=== PATIENT | male | born 1975 | race American Indian/Alaskan Native ===

== ENCOUNTER 2017-04-05 16:25 | Inpatient (IN) | payer OTHER ==
[2017-04-05] MEDS ORDERED: NACL 0.9% 1000 ML 1,000 ML IV ONE ×3 (16:34→18:23)
[2017-04-05] MEDS ORDERED: TORADOL IV ONE (16:35)
[2017-04-05 16:52] LABS: Urine Drugs of Abuse Note Disclamer
[2017-04-05 17:03] LABS: Basophils % (Auto) 0.4 % (0.0-1.8); Eosinophils % (Auto) 0.4 % (0.0-4.3); Hematocrit 41.9 % (35.5-45.6); Hemoglobin 13.9 gm/dl (11.8-15.2); Mean Corpuscular HGB Conc 33 % (32-34); Mean Corpuscular Hemoglobin 33 pg (28-32); Mean Corpuscular Volume 99 fl (84-94); Platelet Count 288 K/mm3 (140-440); Red Blood Count 4.24 M/mm3 (3.65-5.03); Red Cell Distribution Width 12.6 % (13.2-15.2); White Blood Count 11.7 K/mm3 (4.5-11.0)
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
[2017-04-05 17:14] LABS: Bilirubin,Urine NEG (Negative); Blood,Urine SM (Negative); Ketones,Urine TR mg/dL (Negative); Leukocyte Esterase,Urine NEG (Negative); Mucus,Urine 3+ /HPF; Nitrite,Urine NEG (Negative); Urobilinogen,Urine < 2.0 mg/dL (<2.0)
[2017-04-05 17:32] LABS: Creatine Kinase MB 7.6 ng/mL (0.0-4.0)
[2017-04-05] MEDS ORDERED: VANCOMYCIN/NS 1 GM/250 ML 1 GM/250 ML BAG IV ONE (17:32)
[2017-04-05] MEDS ORDERED: ZOSYN/NS 4.5GM/100ML 4.5 GM/100 ML VIAL IV ONE (17:34)
[2017-04-05] MEDS: ZOSYN/NS 4.5GM/100ML 4.5 GM/100 ML VIAL IV SCH ×2 (17:34→23:39)
[2017-04-05 17:35] LABS: Alanine Aminotransferase 24 units/L (7-56); Albumin 4.8 g/dL (3.9-5); Albumin/Globulin Ratio 1.5 %; Alkaline Phosphatase 84 units/L (35-129); BUN/Creatinine Ratio 9.44; Blood Urea Nitrogen 17 mg/dL (9-20); Chloride 102.3 mmol/L (98-107); Creatine Kinase 1178 units/L (55-170); Glucose 145 mg/dL (75-100); Potassium 4.8 mmol/L (3.6-5.0); Sodium 148 mmol/L (137-145); Total Protein 8.1 g/dL (6.3-8.2)
[2017-04-05 17:37] LABS: Anion Gap 43 mmol/L; Carbon Dioxide 8 mmol/L (22-30)
[2017-04-05] MEDS ORDERED: ZOSYN/NS 3.375GM/50ML 3.375 GM/50 ML BAG IV SCH (18:00)
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
[2017-04-05 18:06] LABS: ISTAT Base Excess -8; ISTAT HCO3 17.8; ISTAT PCO2 34.2 (35-45); ISTAT PH 7.325 (7.35-7.45); ISTAT PO2 132 (80-105); ISTAT SO2 99; ISTAT TCO2 19
--- NOTE | 2017-04-05 18:07 | Cat Scan Report ---
FINAL REPORT EXAM: CT HEAD/BRAIN WO CON HISTORY: ams, fever, combative TECHNIQUE: CT head without contrast PRIORS: None. FINDINGS: No acute intra-axial or extra-axial hemorrhage is identified. There is no evidence of midline shift or mass effect. The ventricles and sulci are within normal limits. Ji-white matter differentiation is intact. No acute parenchymal abnormalities seen. Bony calvarium is grossly intact. Visualized portions of the mastoids and paranasal sinuses are unremarkable. IMPRESSION: Negative CT head
[2017-04-05] MEDS ORDERED: VANCOMYCIN VIAL IV ONE (18:21)
[2017-04-05] MEDS ORDERED: NACL 0.9% 1000 ML IV ONE (18:21)
[2017-04-05] MEDS ORDERED: VANCOMYCIN PHARMACY TO DOSE IV SCH (19:00)
[2017-04-05] MEDS ORDERED: VANCOMYCIN 2,000 MG in NACL 0.9% 500 ML 500 ML IV ONE (19:15)
[2017-04-06] MEDS ORDERED: NACL 0.45% 1000 ML 1,000 ML IV SCH (02:00)
[2017-04-06] MEDS ORDERED: APRESOLINE IV ONE (06:45)
--- NOTE | 2017-04-06 07:48 | XRay Report ---
AP CHEST: HISTORY: Fever, altered mental status AP view of the chest demonstrates a normal mediastinal and cardiac contour with clear lungs and normal bony and soft tissue structures. IMPRESSION: Unremarkable AP chest.
[2017-04-06] MEDS ORDERED: ZOSYN/NS 4.5GM/100ML 4.5 GM/100 ML VIAL IV SCH (08:00)
[2017-04-06] MEDS ORDERED: VANCOMYCIN 1,500 MG in NACL 0.9% 500 ML 500 ML IV SCH (08:00)
[2017-04-06 09:19] LABS: Basophils % (Auto) 0.4 % (0.0-1.8); Eosinophils % (Auto) 0.4 % (0.0-4.3); Mean Corpuscular HGB Conc 34 % (32-34); Mean Corpuscular Hemoglobin 33 pg (28-32); Mean Corpuscular Volume 97 fl (84-94); Platelet Count 147 K/mm3 (140-440); Red Cell Distribution Width 12.6 % (13.2-15.2)
[2017-04-06 09:27] LABS: Bacteria,Urine 1+ /HPF (Negative); Bilirubin,Urine NEG (Negative); Blood,Urine LG (Negative); Ketones,Urine TR mg/dL (Negative); Leukocyte Esterase,Urine LG (Negative); Mucus,Urine 1+ /HPF; Nitrite,Urine NEG (Negative); Urobilinogen,Urine < 2.0 mg/dL (<2.0)
[2017-04-06 09:40] LABS: WBC,Urine > 182.0 /HPF (0.0-6.0)
[2017-04-06 09:45] LABS: Hematocrit 32.1 % (35.5-45.6); Hemoglobin 10.8 gm/dl (11.8-15.2)
[2017-04-06 09:51] LABS: BUN/Creatinine Ratio 10.5; Chloride 115.6 mmol/L (98-107); Potassium 3.3 mmol/L (3.6-5.0)
[2017-04-06 10:20] LABS: Calcium 5.6 mg/dL (8.4-10.2)
--- NOTE | 2017-04-06 10:29 | Event Note ---
Date: 04/06/17 Consult initially placed for possible ICU admission however patient stabilized in ER and was transferred to medical floor. Please re-consult if necessary
--- NOTE | 2017-04-06 10:31 | Consultation ---
History of Present Illness Consult date: 04/06/17 Requesting physician: KIYA WILKINS Reason for consult: other (Sepsis) History of present illness: PULMONARY/CCM CONSULT NOTE (Full dictation # [id number]) Please see dictated notes for full details Past History Past Medical History: other (Bipolar) Past Surgical History: No surgical history, Other (reviewed) Social history: single Family history: no significant family history, other (reviewed) Medications and Allergies Allergies Allergy/AdvReac Type Severity Reaction Status Date / Time No Known Allergies Allergy Verified 04/05/17 23:01 Active Meds: Active Medications Albuterol (Proventil) 2.5 mg IH Q3HRT PRN PRN Reason: Shortness Of Breath Vancomycin HCl 1,500 mg/ (Sodium Chloride) 515 mls @ 333.333 mls/hr IV Q12H COREY Last Admin: 04/06/17 09:47 Dose: 333.333 mls/hr Sodium Chloride (Nacl 0.45% 1000 Ml) 1,000 mls @ 125 mls/hr IV DIRECT COREY Last Admin: 04/06/17 04:34 Dose: 125 mls/hr Piperacillin Sod/Tazobactam Sod (Zosyn/Ns 4.5gm/100ml) 4.5 gm in 100 mls @ 200 mls/hr IV Q8H COREY PRN Reason: Protocol Last Admin: 04/06/17 08:36 Dose: 200 mls/hr Lorazepam (Ativan) 1 mg IV Q4H PRN PRN Reason: Agitation Vancomycin HCl (Vancomycin Pharmacy To Dose) 1 each IV PKCONSULT COREY PRN Reason: Protocol Physical Examination Vital signs: Vital Signs Temp Pulse Resp BP Pulse Ox 102.9 F H 138 H 30 H 119/65 99 04/05/17 16:28 04/05/17 16:28 04/05/17 16:28 04/05/17 16:28 04/05/17 16:28 Results - Laboratory Findings CBC and BMP: 04/06/17 11:02 04/06/17 11:02 ABG POC ABG pH 7.325 (7.35-7.45) L 04/05/17 17:59 POC ABG pCO2 34.2 (35-45) L 04/05/17 17:59 POC ABG pO2 132 (80-105) H 04/05/17 17:59 POC ABG HCO3 17.8 04/05/17 17:59 POC ABG Total CO2 19 04/05/17 17:59 POC ABG O2 Sat 99 04/05/17 17:59 Abnormal lab findings: Abnormal Labs 04/06/17 04/06/17 04/06/17 00:54 08:52 08:52 WBC 12.0 H RBC 3.30 L Hgb 10.8 L D Hct 32.1 L D MCV 97 H MCH 33 H RDW 12.6 L Lymph % (Auto) 5.9 L Gem % (Auto) 8.6 H Lymph # 0.7 L Gem # 1.0 H Seg Neutrophils % 84.7 H Seg Neutrophils # 10.1 H Sodium 168 H* D Potassium 3.3 L D Chloride 115.6 H Carbon Dioxide 13 L BUN 21 H Creatinine 2.0 H Glucose 73 L Lactic Acid 2.10 H* Calcium 5.6 L* D Urine WBC (Auto) 04/06/17 09:00 WBC RBC Hgb Hct MCV MCH RDW Lymph % (Auto) Gem % (Auto) Lymph # Gem # Seg Neutrophils % Seg Neutrophils # Sodium Potassium Chloride Carbon Dioxide BUN Creatinine Glucose Lactic Acid Calcium Urine WBC (Auto) > 182.0 H
[2017-04-06] MEDS ORDERED: CALCIUM GLUCONATE 1,000 MG in NACL 0.9% 100 ML IV ONE (10:45)
[2017-04-06] MEDS ORDERED: KCL 20 MEQ in D5NS 0.2% 1,000 ML IV SCH (10:45)
[2017-04-06 12:37] LABS: Basophils % (Auto) 0.4 % (0.0-1.8); Eosinophils % (Auto) 0.6 % (0.0-4.3); Hematocrit 39.5 % (35.5-45.6); Hemoglobin 12.8 gm/dl (11.8-15.2); Mean Corpuscular HGB Conc 32 % (32-34); Mean Corpuscular Hemoglobin 32 pg (28-32); Mean Corpuscular Volume 99 fl (84-94); Platelet Count 169 K/mm3 (140-440); Red Cell Distribution Width 12.9 % (13.2-15.2); White Blood Count 14.2 K/mm3 (4.5-11.0)
[2017-04-06 12:41] LABS: Albumin 3.6 g/dL (3.9-5); Albumin/Globulin Ratio 1.4 %; BUN/Creatinine Ratio 9.28; Bilirubin,Total 1.2 mg/dL (0.1-1.2); Chloride 111.8 mmol/L (98-107); Total Protein 6.1 g/dL (6.3-8.2)
[2017-04-06 12:44] LABS: Potassium 4.6 mmol/L (3.6-5.0)
--- NOTE | 2017-04-06 13:41 | Progress Note ---
Assessment and Plan Assessment and plan: Sepsis. Improved. Continue to follow up blood culture. IV antibiotics. Lactic acid level has returned to normal. UTI. Continue IV antibiotics. Follow-up urine cultures. Encephalopathy. Etiology may be secondary to 1. Patient also appears to be manic. Consult psychiatry. Abdominal pain. Check CT scan of the abdomen and pelvis. Acute renal failure. Creatinine has increased to 2.8. Follow-up CT scan of the abdomen and pelvis to rule out obstruction. Nephrology consultation. History Interval history: Patient complains of abdominal pain. Hospitalist Physical - Constitutional Vitals: Temp Pulse Resp BP Pulse Ox 97.5 F L 69 16 158/112 100 04/06/17 12:00 04/06/17 12:00 04/06/17 12:00 04/06/17 12:00 04/06/17 12:00 General appearance: Present: no acute distress - EENT Eyes: Present: PERRL, EOM intact ENT: hearing intact, clear oral mucosa, dentition normal - Neck Neck: Present: supple, normal ROM - Respiratory Respiratory effort: normal Respiratory: bilateral: CTA - Cardiovascular Rhythm: regular Heart Sounds: Present: S1 & S2. Absent: gallop, rub - Extremities Extremities: no ischemia, No edema, Full ROM - Abdominal General gastrointestinal: soft, non-tender, non-distended, normal bowel sounds - Integumentary Integumentary: Present: clear, warm, dry - Neurologic Neurologic: CNII-XII intact, moves all extremities Results - Labs CBC & Chem 7: 04/06/17 11:02 04/06/17 11:02 Labs: Laboratory Last Values WBC 14.2 K/mm3 (4.5-11.0) H 04/06/17 11:02 RBC 4.00 M/mm3 (3.65-5.03) 04/06/17 11:02 Hgb 12.8 gm/dl (11.8-15.2) 04/06/17 11:02 Hct 39.5 % (35.5-45.6) D 04/06/17 11:02 MCV 99 fl (84-94) H 04/06/17 11:02 MCH 32 pg (28-32) 04/06/17 11:02 MCHC 32 % (32-34) 04/06/17 11:02 RDW 12.9 % (13.2-15.2) L 04/06/17 11:02 Plt Count 169 K/mm3 (140-440) 04/06/17 11:02 Lymph % (Auto) 9.7 % (13.4-35.0) L 04/06/17 11:02 [place] % (Auto) 7.7 % (0.0-7.3) H 04/06/17 11:02 Eos % (Auto) 0.6 % (0.0-4.3) 04/06/17 11:02 Baso % (Auto) 0.4 % (0.0-1.8) 04/06/17 11:02 Lymph # 1.4 K/mm3 (1.2-5.4) 04/06/17 11:02 [place] # 1.1 K/mm3 (0.0-0.8) H 04/06/17 11:02 Eos # 0.1 K/mm3 (0.0-0.4) 04/06/17 11:02 Baso # 0.1 K/mm3 (0.0-0.1) 04/06/17 11:02 Seg Neutrophils % 81.6 % (40.0-70.0) H 04/06/17 11:02 Seg Neutrophils # 11.6 K/mm3 (1.8-7.7) H 04/06/17 11:02 POC ABG pH 7.325 (7.35-7.45) L 04/05/17 17:59 POC ABG pCO2 34.2 (35-45) L 04/05/17 17:59 POC ABG pO2 132 (80-105) H 04/05/17 17:59 POC ABG HCO3 17.8 04/05/17 17:59 POC ABG Total CO2 19 04/05/17 17:59 POC ABG O2 Sat 99 04/05/17 17:59 POC ABG Base Excess -8 04/05/17 17:59 VBG pH 7.186 (7.320-7.420) L* 04/05/17 16:36 FiO2 28 % 04/05/17 17:59 Sodium 146 mmol/L (137-145) H D 04/06/17 11:02 Potassium 4.6 mmol/L (3.6-5.0) D 04/06/17 11:02 Chloride 111.8 mmol/L (98-107) H 04/06/17 11:02 Carbon Dioxide 19 mmol/L (22-30) L 04/06/17 11:02 Anion Gap 20 mmol/L 04/06/17 11:02 BUN 26 mg/dL (9-20) H 04/06/17 11:02 Creatinine 2.8 mg/dL (0.8-1.5) H 04/06/17 11:02 Estimated GFR 30 ml/min 04/06/17 11:02 BUN/Creatinine Ratio 9.28 % 04/06/17 11:02 Glucose 117 mg/dL (75-100) H 04/06/17 11:02 POC Glucose 130 (70-105) H 04/05/17 16:55 Lactic Acid 1.80 mmol/L (0.7-2.0) 04/06/17 11:02 Calcium 8.0 mg/dL (8.4-10.2) L D 04/06/17 11:02 Total Bilirubin 1.20 mg/dL (0.1-1.2) 04/06/17 11:02 AST 160 units/L (5-40) H 04/06/17 11:02 ALT 48 units/L (7-56) 04/06/17 11:02 Alkaline Phosphatase 59 units/L (35-129) 04/06/17 11:02 Ammonia 76.0 umol/L (25-60) H 04/05/17 17:41 Total Creatine Kinase 1178 units/L (55-170) H 04/05/17 16:36 CK-MB (CK-2) 7.6 ng/mL (0.0-4.0) H 04/05/17 16:36 CK-MB (CK-2) Rel Index 0.6 (0-4) 04/05/17 16:36 Troponin T < 0.010 ng/mL (0.00-0.029) 04/05/17 18:39 Total Protein 6.1 g/dL (6.3-8.2) L D 04/06/17 11:02 Albumin 3.6 g/dL (3.9-5) L 04/06/17 11:02 Albumin/Globulin Ratio 1.4 % 04/06/17 11:02 TSH 1.700 mlU/mL (0.270-4.200) 04/05/17 16:36 Free T4 0.82 ng/dL (0.76-1.46) 04/05/17 16:36 Urine Color Yellow (Yellow) 04/06/17 09:00 Urine Turbidity Cloudy (Clear) 04/06/17 09:00 Urine pH 6.0 (5.0-7.0) 04/06/17 09:00 Ur Specific [place] 1.011 (1.003-1.030) 04/06/17 09:00 Urine Protein 100 mg/dl mg/dL (Negative) 04/06/17 09:00 Urine Glucose (UA) 50 mg/dL (Negative) 04/06/17 09:00 Urine Ketones Tr mg/dL (Negative) 04/06/17 09:00 Urine Blood Lg (Negative) 04/06/17 09:00 Urine Nitrite Neg (Negative) 04/06/17 09:00 Urine Bilirubin Neg (Negative) 04/06/17 09:00 Urine Urobilinogen < 2.0 mg/dL (<2.0) 04/06/17 09:00 Ur Leukocyte Esterase Lg (Negative) 04/06/17 09:00 Urine WBC (Auto) > 182.0 /HPF (0.0-6.0) H 04/06/17 09:00 Urine RBC (Auto) 131.0 /HPF (0.0-6.0) 04/06/17 09:00 U Epithel Cells (Auto) 1.0 /HPF (0-13.0) 04/06/17 09:00 Urine Bacteria (Auto) 1+ /HPF (Negative) 04/06/17 09:00 Urine WBC Clumps 3+ /HPF 04/06/17 09:00 Urine Mucus 1+ /HPF 04/06/17 09:00 Urine Opiates Screen Presumptive negative 04/05/17 16:36 Urine Methadone Screen Presumptive negative 04/05/17 16:36 Ur Barbiturates Screen Presumptive negative 04/05/17 16:36 Ur Phencyclidine Scrn Presumptive negative 04/05/17 16:36 Ur Amphetamines Screen Presumptive positive 04/05/17 16:36 U Benzodiazepines Scrn Presumptive negative 04/05/17 16:36 Urine Cocaine Screen Presumptive positive 04/05/17 16:36 U Marijuana (THC) Screen Presumptive negative 04/05/17 16:36 Drugs of Abuse Note Disclamer 04/05/17 16:36 Plasma/Serum Alcohol < 0.01 gm% (0-0.07) 04/05/17 16:36
--- NOTE | 2017-04-06 15:02 | Cat Scan Report ---
CT OF THE ABDOMEN AND PELVIS WITHOUT CONTRAST HISTORY: Abdominal pain. TECHNIQUE: Helical CT without contrast. Sagittal and coronal reformatted images. FINDINGS: No relevant comparison. Small bilateral layering pleural effusions are noted at the lung bases measuring up to 1 cm in thickness. Heart size is normal. There is moderate to severe bilateral perinephric stranding. The kidneys are normal size, contour and attenuation. No focal renal lesion or hydronephrosis. The ureters are normal course and caliber. The bladder is decompressed with a Luna catheter. The liver, biliary system, pancreas, spleen, adrenal glands and aorta are within normal limits. No evidence for bowel obstruction or focal bowel wall thickening. Normal appendix. No bulky adenopathy. No suspicious bony lesion. Surgical changes of L5-S1 are noted. IMPRESSION: No acute inflammatory process is appreciated. Moderate to severe bilateral perinephric stranding. This is a nonspecific finding. Correlate for renal symptoms. There is no evidence for focal renal lesion or hydronephrosis. Small bilateral layering pleural effusions.
[2017-04-06] MEDS ORDERED: LEVAQUIN 500MG/100ML 500 MG/100 ML BAG IV SCH (18:00)
[2017-04-06] MEDS: DILAUDID IV PRN (20:51)
[2017-04-06] MEDS: NACL 0.9% 1000 ML 1,000 ML IV SCH (21:17)
[2017-04-06] MEDS ORDERED: LOVENOX SUB-Q SCH (22:00)
[2017-04-07] MEDS: DILAUDID IV PRN ×4 (05:53→21:20)
[2017-04-07 08:23] LABS: Basophils % (Auto) 0.6 % (0.0-1.8); Eosinophils % (Auto) 1.9 % (0.0-4.3); Hematocrit 36.9 % (35.5-45.6); Mean Corpuscular HGB Conc 33 % (32-34); Mean Corpuscular Hemoglobin 32 pg (28-32); Mean Corpuscular Volume 99 fl (84-94); Platelet Count 164 K/mm3 (140-440); Red Blood Count 3.75 M/mm3 (3.65-5.03); Red Cell Distribution Width 12.4 % (13.2-15.2); White Blood Count 12.6 K/mm3 (4.5-11.0)
[2017-04-07 08:47] LABS: BUN/Creatinine Ratio 6.6; Calcium 7.8 mg/dL (8.4-10.2); Chloride 110.8 mmol/L (98-107); Potassium 4.4 mmol/L (3.6-5.0)
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
--- NOTE | 2017-04-07 10:04 | Progress Note ---
Assessment and Plan Assessment and plan: Sepsis. Improved. Continue to follow up blood culture. IV antibiotics. Lactic acid level has returned to normal. UTI. Continue IV antibiotics. Follow-up urine cultures. CT scan of the abdomen and pelvis revealed perinephric stranding. Encephalopathy. Etiology may be secondary to 1. Patient also appears to be manic. Patient with a history of bipolar disorder. Consulted psychiatry. Abdominal pain. CT scan of the abdomen and pelvis showing no acute intra- abdominal pathology. Acute renal failure. Etiology is likely secondary to acute kidney injury/ATN from sepsis. Follow-up CT scan of the abdomen and pelvis showed no evidence of obstruction but did reveal perinephric stranding. Nephrology consultation pending. Accelerated hypertension. Labetalol 200 mg twice a day. History Interval history: No new issues overnight. Hospitalist Physical - Constitutional Vitals: Temp Pulse Resp BP Pulse Ox 93.3 F L 73 18 151/106 99 04/07/17 08:00 04/07/17 08:00 04/07/17 08:00 04/07/17 08:00 04/07/17 08:00 General appearance: Present: no acute distress - EENT Eyes: Present: PERRL, EOM intact ENT: hearing intact, clear oral mucosa, dentition normal - Neck Neck: Present: supple, normal ROM - Respiratory Respiratory effort: normal Respiratory: bilateral: CTA - Cardiovascular Rhythm: regular Heart Sounds: Present: S1 & S2. Absent: gallop, rub - Extremities Extremities: no ischemia, No edema, Full ROM - Abdominal General gastrointestinal: soft, non-tender, non-distended, normal bowel sounds - Integumentary Integumentary: Present: clear, warm, dry - Neurologic Neurologic: CNII-XII intact, moves all extremities Results - Labs CBC & Chem 7: 04/07/17 08:03 04/07/17 08:02 Labs: Laboratory Last Values WBC 12.6 K/mm3 (4.5-11.0) H 04/07/17 08:03 RBC 3.75 M/mm3 (3.65-5.03) 04/07/17 08:03 Hgb 12.0 gm/dl (11.8-15.2) 04/07/17 08:03 Hct 36.9 % (35.5-45.6) 04/07/17 08:03 MCV 99 fl (84-94) H 04/07/17 08:03 MCH 32 pg (28-32) 04/07/17 08:03 MCHC 33 % (32-34) 04/07/17 08:03 RDW 12.4 % (13.2-15.2) L 04/07/17 08:03 Plt Count 164 K/mm3 (140-440) 04/07/17 08:03 Lymph % (Auto) 7.0 % (13.4-35.0) L 04/07/17 08:03 [place] % (Auto) 7.5 % (0.0-7.3) H 04/07/17 08:03 Eos % (Auto) 1.9 % (0.0-4.3) 04/07/17 08:03 Baso % (Auto) 0.6 % (0.0-1.8) 04/07/17 08:03 Lymph # 0.9 K/mm3 (1.2-5.4) L 04/07/17 08:03 [place] # 0.9 K/mm3 (0.0-0.8) H 04/07/17 08:03 Eos # 0.2 K/mm3 (0.0-0.4) 04/07/17 08:03 Baso # 0.1 K/mm3 (0.0-0.1) 04/07/17 08:03 Seg Neutrophils % 83.0 % (40.0-70.0) H 04/07/17 08:03 Seg Neutrophils # 10.5 K/mm3 (1.8-7.7) H 04/07/17 08:03 POC ABG pH 7.325 (7.35-7.45) L 04/05/17 17:59 POC ABG pCO2 34.2 (35-45) L 04/05/17 17:59 POC ABG pO2 132 (80-105) H 04/05/17 17:59 POC ABG HCO3 17.8 04/05/17 17:59 POC ABG Total CO2 19 04/05/17 17:59 POC ABG O2 Sat 99 04/05/17 17:59 POC ABG Base Excess -8 04/05/17 17:59 VBG pH 7.186 (7.320-7.420) L* 04/05/17 16:36 FiO2 28 % 04/05/17 17:59 Sodium 142 mmol/L (137-145) 04/07/17 08:02 Potassium 4.4 mmol/L (3.6-5.0) 04/07/17 08:02 Chloride 110.8 mmol/L (98-107) H 04/07/17 08:02 Carbon Dioxide 17 mmol/L (22-30) L 04/07/17 08:02 Anion Gap 19 mmol/L 04/07/17 08:02 BUN 35 mg/dL (9-20) H 04/07/17 08:02 Creatinine 5.3 mg/dL (0.8-1.5) H D 04/07/17 08:02 Estimated GFR 14 ml/min 04/07/17 08:02 BUN/Creatinine Ratio 6.60 % 04/07/17 08:02 Glucose 123 mg/dL (75-100) H 04/07/17 08:02 POC Glucose 130 (70-105) H 04/05/17 16:55 Osmolality 308 Mosm/kg 04/06/17 20:24 Lactic Acid 2.00 mmol/L (0.7-2.0) 04/07/17 08:03 Calcium 7.8 mg/dL (8.4-10.2) L 04/07/17 08:02 Total Bilirubin 1.20 mg/dL (0.1-1.2) 04/06/17 11:02 AST 160 units/L (5-40) H 04/06/17 11:02 ALT 48 units/L (7-56) 04/06/17 11:02 Alkaline Phosphatase 59 units/L (35-129) 04/06/17 11:02 Ammonia 76.0 umol/L (25-60) H 04/05/17 17:41 Total Creatine Kinase 5277 units/L (55-170) H 04/07/17 08:02 CK-MB (CK-2) 7.6 ng/mL (0.0-4.0) H 04/05/17 16:36 CK-MB (CK-2) Rel Index 0.6 (0-4) 04/05/17 16:36 Troponin T < 0.010 ng/mL (0.00-0.029) 04/05/17 18:39 C-Reactive Protein 2.90 mg/dL (0.00-1.30) H 04/06/17 20:24 Total Protein 6.1 g/dL (6.3-8.2) L D 04/06/17 11:02 Albumin 3.6 g/dL (3.9-5) L 04/06/17 11:02 Albumin/Globulin Ratio 1.4 % 04/06/17 11:02 TSH 1.700 mlU/mL (0.270-4.200) 04/05/17 16:36 Free T4 0.82 ng/dL (0.76-1.46) 04/05/17 16:36 Urine Color Yellow (Yellow) 04/06/17 09:00 Urine Turbidity Cloudy (Clear) 04/06/17 09:00 Urine pH 6.0 (5.0-7.0) 04/06/17 09:00 Ur Specific [place] 1.011 (1.003-1.030) 04/06/17 09:00 Urine Protein 100 mg/dl mg/dL (Negative) 04/06/17 09:00 Urine Glucose (UA) 50 mg/dL (Negative) 04/06/17 09:00 Urine Ketones Tr mg/dL (Negative) 04/06/17 09:00 Urine Blood Lg (Negative) 04/06/17 09:00 Urine Nitrite Neg (Negative) 04/06/17 09:00 Urine Bilirubin Neg (Negative) 04/06/17 09:00 Urine Urobilinogen < 2.0 mg/dL (<2.0) 04/06/17 09:00 Ur Leukocyte Esterase Lg (Negative) 04/06/17 09:00 Urine WBC (Auto) > 182.0 /HPF (0.0-6.0) H 04/06/17 09:00 Urine RBC (Auto) 131.0 /HPF (0.0-6.0) 04/06/17 09:00 U Epithel Cells (Auto) 1.0 /HPF (0-13.0) 04/06/17 09:00 Urine Bacteria (Auto) 1+ /HPF (Negative) 04/06/17 09:00 Urine WBC Clumps 3+ /HPF 04/06/17 09:00 Urine Mucus 1+ /HPF 04/06/17 09:00 Urine Opiates Screen Presumptive negative 04/05/17 16:36 Urine Methadone Screen Presumptive negative 04/05/17 16:36 Ur Barbiturates Screen Presumptive negative 04/05/17 16:36 Ur Phencyclidine Scrn Presumptive negative 04/05/17 16:36 Ur Amphetamines Screen Presumptive positive 04/05/17 16:36 U Benzodiazepines Scrn Presumptive negative 04/05/17 16:36 Urine Cocaine Screen Presumptive positive 04/05/17 16:36 U Marijuana (THC) Screen Presumptive negative 04/05/17 16:36 Drugs of Abuse Note Disclamer 04/05/17 16:36 Plasma/Serum Alcohol < 0.01 gm% (0-0.07) 04/05/17 16:36 Hepatitis A IgM Ab Non-reactive (NonReactive) 04/06/17 20:24 Hep Bs Antigen Non-reactive (Negative) 04/06/17 20:24 Hep B Core IgM Ab Non-reactive (NonReactive) 04/06/17 20:24 Hepatitis C Antibody Non-reactive (NonReactive) 04/06/17 20:24
[2017-04-07] MEDS: PEPCID PO SCH (11:40)
[2017-04-07 12:57] LABS: Bacteria,Urine 2+ /HPF (Negative); Bilirubin,Urine NEG (Negative); Blood,Urine LG (Negative); Ketones,Urine NEG (Negative); Leukocyte Esterase,Urine MOD (Negative); Mucus,Urine 1+ /HPF; Nitrite,Urine NEG (Negative); Urobilinogen,Urine < 2.0 mg/dL (<2.0)
--- NOTE | 2017-04-07 13:02 | Consultation ---
CONSULTING PHYSICIAN: Dr. Durbin. REASON FOR CONSULTATION: Sepsis. CHIEF COMPLAINT AND HISTORY OF PRESENT ILLNESS: The patient is a 42-year-old -Citizen Of [place] male with past medical history in retrospect significant for diagnosis of bipolar disorder, who came to the Emergency Room for evaluation. He was confused. He was lethargic. He was talking tangentially. According to the police officers and the ER record, he was found wandering around and confused by the EMS. He was brought into the ER after he had tried to run from the police. He was brought into the Emergency Room in full restraints. He was unable to answer questions. He was found to be febrile. He was hypoxemic. He was tachycardic with systemic inflammatory response syndrome. Evaluation by the physicians in the ER and the hospitalist suspected sepsis syndrome and as such intensive care unit admission was requested; however, repeat blood work soon began to show positive drug screen and ____ history of bipolar disorder. When I stopped by to see him in the intensive care unit today, he was no longer tachycardic. He was no longer tachypneic. He denied any acute chest pain. He was aching all over presumably from his struggles the day before. He denied any history of tobacco use or abuse whatsoever. He denied any cough or expectoration. He told me a totally tangential story when I took a new history from him today. The above is really as much of the history of presentation as I have. PAST MEDICAL HISTORY: Again, bipolar disorder. PAST SURGICAL HISTORY: He had denied. MEDICATIONS: He was on at the time I stopped by to see him, according to the medication administration record included the following: He was on albuterol 2.5 mg inhaled q.3 hours p.r.n. shortness of breath, Ativan 1 mg IV q.4 hours p.r.n. agitation. Normal saline had been running at 75 mL an hour. Hydralazine he received 2.5 mg dose x 1. He was on Zosyn 4.5 grams IV q.6 hours. He was also on vancomycin 1.5 grams IV q.12 hours. ALLERGIES: No known drug allergies. DIET: Well-built gentleman. Denies acute weight loss or gain in the preceding few weeks to months. FAMILY AND SOCIAL HISTORY: Lives in the community according to his history. He had denied alcohol, tobacco, illicit drug use or abuse. However, his drug screen was positive. REVIEW OF SYSTEMS: Little difficult to obtain, but since he has been in the hospital, no gross hematochezia or melena, no gross hematuria. He denies dysuria. He denies hematemesis. He denies hemoptysis. He denies palpitations. Complete 13-system review of systems obtained. Pertinent positives and/or negatives as in body of history above, otherwise they are noncontributory. PHYSICAL EXAMINATION: VITAL SIGNS: At presentation; he was febrile, temperature 102.9 degrees Fahrenheit, pulse of 138, respiratory rate of 30, blood pressure 119/65, oxygen sats were 99%, inspired oxygen concentration was not recorded. HEAD, EYES, EARS, NOSE, AND THROAT: Pupils are equal, round, about 3-4 mm, reactive to light. Extraocular muscle movements are intact. Grossly, no palpable lymph nodes in the supraclavicular or submandibular lymph node chains. LUNGS: Auscultation of both lung fine unremarkable. Lungs are clear bilaterally. HEART: Heart sounds 1 and 2 are heard. They were regular in rate and rhythm at the time of my evaluation. ABDOMEN: Soft, full, bowel sounds are positive. Mild epigastric tenderness. EXTREMITIES: Without overt digital clubbing, cyanosis, or pedal edema. Generally, he had abrasions to the face, to the arms, and to the lower extremity, presumably sustained during the agitation. NEUROLOGIC: Grossly nonfocal. LABORATORY DATA: From my review are as follows: Admission white cell count 11,700, hemoglobin 13.9, hematocrit 41.9, platelet count 288. Arterial blood gas showed a pH of 7.33, pCO2 of 34, pO2 of 132. Venous blood gas earlier showed a pH of 7.19, the above gases on 28% FiO2. Serum sodium was 148, potassium 4.8, chloride 102, bicarbonate 8, BUN 17, creatinine 1.8 and glucose of 145. Lactic acid level was 20.1. At presentation, the next set however was within normal limits. AST was 43. Ammonia 76. Total CK was 1178. Urinalysis, trace ketones, small blood, negative for nitrites and leukocyte esterase. Urine drug screen was presumptive, positive for amphetamines and cocaine. Alcohol level was within normal limits. UA today is ____ large blood, large leukocyte esterase and greater than 182 white cells per high power field. White count is up to 14,200. Radiographic studies have been reviewed. I have also reviewed the radiologist's interpretation. A CT scan of his head was done. It was read as negative CT of the head. Chest x-ray was done. It is unremarkable chest x-ray, no gross pneumothorax, no gross bony fractures, no overt cardiomegaly. CT of the abdomen and pelvis was also done. No acute inflammatory process, moderate to severe bilateral perinephric stranding and small bilateral layering pleural effusions. I will be pulling of those images now to review them. Cultures have been drawn, no growth to date. Urine cultures no growth to date. ASSESSMENT AND PLAN: We have a middle-aged gentleman in with agitation, positive drug screen certainly suspicious. When he spoke with me, he did mention that he had been calling the police all day, so that they could come and search his car, make sure there were no drugs in his car because he feels like he could have been set up and so everything is pointing certainly towards the bipolar disorder, possible drug abuse. I note the systemic inflammatory response syndrome at presentation, I am just not sure that we are dealing with a true septic picture. I will go ahead and get a CRP level. We will continue volume resuscitation for the lactic acidosis, which is now corrected. I will discontinue ____ antibiotics, I will stop the vancomycin, stop the Zosyn, he may have a urinary tract infection. I will order some Levaquin. I should say that he will also benefit from serial CPKs. There is probably an element of rhabdomyolysis at play at this point and that may be reflected in the urine, blood and the urinalysis. He will benefit from a psychiatric consult. He will be placed on GI and DVT prophylaxis. Flu and pneumonia vaccination will be per protocol. He is doing much better, much stable, and will be transferred out of the intensive care unit. Thank you very much for the consult. We will follow along. We will make further recommendations as picture progresses/becomes clear. JOB# [id number] SAHIL/ADRY
[2017-04-07 13:03] LABS: RBC,Urine > 182.0 /HPF (0.0-6.0); WBC,Urine > 182.0 /HPF (0.0-6.0)
--- NOTE | 2017-04-07 14:55 | Ultrasound Report ---
ULTRASOUND RENAL BILATERAL HISTORY: Renal failure. TECHNIQUE: transabdominal ultrasound with color Doppler interrogation. FINDINGS: The right kidney measures 12.0cm. Right renal cortex: 1.9cm. The left kidney measures 12.0cm. Left renal cortex: 2.0cm. The kidneys are normal size, contour and position. There is increased renal parenchymal echotexture bilaterally. Corticomedullary differentiation is preserved. No evidence for cystic disease, mass, nephrolithiasis, hydronephrosis or perinephric fluid. The views of the bladder and the region of the ureters appear normal. IMPRESSION: Renal parenchymal disease.
[2017-04-07] MEDS: NORMODYNE PO SCH ×2 (16:17→21:24)
[2017-04-07] MEDS: ATIVAN IV PRN (17:15)
--- NOTE | 2017-04-07 17:17 | Progress Note ---
Assessment and Plan Patient still complaining pleuritic chest pain on left side.Patient says also having some shortness of breath.Resting on 2 litres O2. O2 saturation 100%. No acute respiratory distress. - Patient Problems (1) Left-sided chest wall pain Current Visit: Yes Status: Acute Plan to address problem: Recommend chest xray PA and Lateral and bilateral rib series. (2) ARF (acute renal failure) Current Visit: Yes Status: Acute Qualifiers: Acute renal failure type: A Plan to address problem: Management as per nephrology. (3) Metabolic acidosis Current Visit: Yes Status: Acute Plan to address problem: Probably secondary to renal failure. Recommend supplementing NAHCO3. Management as per nephrology. Subjective Date of service: 04/07/17 Interval history: Patient still complaining pleuritic chest pain on left side.Patient says also having some shortness of breath.Resting on 2 litres O2. O2 saturation 100%. No acute respiratory distress. Objective Vital Signs - 12hr 04/07/17 04/07/17 04/07/17 08:00 10:56 16:00 Temperature 93.3 F L 98.8 F Pulse Rate 73 77 Respiratory 18 18 Rate Blood Pressure Blood Pressure 151/106 157/107 [Left] O2 Sat by Pulse 99 99 100 Oximetry 04/07/17 16:17 Temperature Pulse Rate 77 Respiratory Rate Blood Pressure 157/107 Blood Pressure [Left] O2 Sat by Pulse Oximetry Constitutional: no acute distress, alert Eyes: non-icteric Neck: supple, no lymphadenopathy Ascultation: Bilateral: clear Cardiovascular: regular rate and rhythm Gastrointestinal: normoactive bowel sounds, soft, non-tender Integumentary: normal Extremities: no cyanosis, no edema Neurologic: normal mental status, non-focal exam, pupils equal and round, CN II- XII normal Psychiatric: mood appropriate CBC and BMP: 04/07/17 08:03 04/07/17 08:02 ABG, PT/INR, D-dimer: ABG POC ABG pH 7.325 (7.35-7.45) L 04/05/17 17:59 POC ABG pCO2 34.2 (35-45) L 04/05/17 17:59 POC ABG pO2 132 (80-105) H 04/05/17 17:59 POC ABG HCO3 17.8 04/05/17 17:59 POC ABG Total CO2 19 09/18/17 17:59 POC ABG O2 Sat 99 04/05/17 17:59 Abnormal lab findings: Abnormal Labs 04/06/17 04/06/17 04/06/17 00:54 08:52 08:52 WBC 12.0 H RBC 3.30 L Hgb 10.8 L D Hct 32.1 L D MCV 97 H MCH 33 H RDW 12.6 L Lymph % (Auto) 5.9 L [place] % (Auto) 8.6 H Lymph # 0.7 L [place] # 1.0 H Seg Neutrophils % 84.7 H Seg Neutrophils # 10.1 H Sodium 168 H* D Potassium 3.3 L D Chloride 115.6 H Carbon Dioxide 13 L BUN 21 H Creatinine 2.0 H Glucose 73 L Lactic Acid 2.10 H* Uric Acid Calcium 5.6 L* D AST Total Creatine Kinase C-Reactive Protein Total Protein Albumin Urine WBC (Auto) Urine Creatinine Urine Total Protein 04/06/17 04/06/17 04/06/17 09:00 11:02 11:02 WBC 14.2 H RBC Hgb Hct MCV 99 H MCH RDW 12.9 L Lymph % (Auto) 9.7 L [place] % (Auto) 7.7 H Lymph # [place] # 1.1 H Seg Neutrophils % 81.6 H Seg Neutrophils # 11.6 H Sodium 146 H D Potassium Chloride 111.8 H Carbon Dioxide 19 L BUN 26 H Creatinine 2.8 H Glucose 117 H Lactic Acid Uric Acid Calcium 8.0 L D AST 160 H Total Creatine Kinase C-Reactive Protein Total Protein 6.1 L D Albumin 3.6 L Urine WBC (Auto) > 182.0 H Urine Creatinine Urine Total Protein 04/06/17 04/06/17 04/06/17 12:44 12:44 20:24 WBC RBC Hgb Hct MCV MCH RDW Lymph % (Auto) [place] % (Auto) Lymph # [place] # Seg Neutrophils % Seg Neutrophils # Sodium Potassium Chloride Carbon Dioxide BUN Creatinine Glucose Lactic Acid Uric Acid Calcium AST Total Creatine Kinase C-Reactive Protein 2.90 H Total Protein Albumin Urine WBC (Auto) > 182.0 H Urine Creatinine 87.4 H Urine Total Protein 589 H 04/07/17 04/07/17 04/07/17 08:02 08:02 08:03 WBC 12.6 H RBC Hgb Hct MCV 99 H MCH RDW 12.4 L Lymph % (Auto) 7.0 L [place] % (Auto) 7.5 H Lymph # 0.9 L [place] # 0.9 H Seg Neutrophils % 83.0 H Seg Neutrophils # 10.5 H Sodium Potassium Chloride 110.8 H Carbon Dioxide 17 L BUN 35 H Creatinine 5.3 H D Glucose 123 H Lactic Acid Uric Acid 9.2 H Calcium 7.8 L AST Total Creatine Kinase 5277 H C-Reactive Protein Total Protein Albumin Urine WBC (Auto) Urine Creatinine Urine Total Protein Chest x-ray: report reviewed (Reported unremarkable AP chest.), image reviewed
[2017-04-07] MEDS: NACL 0.9% 1000 ML 1,000 ML IV SCH (17:28)
[2017-04-07] MEDS: LOVENOX SUB-Q SCH (21:23)
[2017-04-08] MEDS: DILAUDID IV PRN ×6 (00:30→22:42)
[2017-04-08] MEDS: ATIVAN IV PRN (00:33)
[2017-04-08 02:30] LABS: Basophils % (Auto) 0.7 % (0.0-1.8); Eosinophils % (Auto) 2.7 % (0.0-4.3); Hematocrit 33.2 % (35.5-45.6); Hemoglobin 11.3 gm/dl (11.8-15.2); Mean Corpuscular HGB Conc 34 % (32-34); Mean Corpuscular Hemoglobin 33 pg (28-32); Mean Corpuscular Volume 98 fl (84-94); Platelet Count 160 K/mm3 (140-440); Red Cell Distribution Width 12.6 % (13.2-15.2); White Blood Count 9.2 K/mm3 (4.5-11.0)
[2017-04-08 02:47] LABS: BUN/Creatinine Ratio 5.42; Calcium 7.8 mg/dL (8.4-10.2); Chloride 105.1 mmol/L (98-107); Potassium 4.8 mmol/L (3.6-5.0)
--- NOTE | 2017-04-08 07:40 | XRay Report ---
RIGHT FOREARM: History: Right arm swelling and pain. AP and lateral views of the forearm demonstrate normal mineralization and contours for this patient's age. There is nonspecific subcutaneous edema near the level of the right elbow. An IV is in the antecubital fossa. IMPRESSION: Nonspecific soft tissue swelling which could represent cellulitis. No bony abnormality detected.
--- NOTE | 2017-04-08 07:49 | XRay Report ---
RIGHT HAND, 2 views: History: Pain, swelling The bony architecture is intact. Bony alignment is normal. No soft tissue abnormalities are seen. The joint spaces appear preserved. IMPRESSION: Normal right hand.
--- NOTE | 2017-04-08 09:22 | XRay Report ---
BILATERAL RIBS, 4 views: History: Pleuritic chest pain. A mildly displaced left lateral sixth rib fracture is identified. Mildly displaced right lateral fifth and sixth rib fractures are identified. The remaining ribs are grossly intact. The lungs are well-aerated. Heart and mediastinal structures are within normal limits. IMPRESSION: Bilateral rib fractures as described.
--- NOTE | 2017-04-08 09:47 | Progress Note ---
Subjective Interval history: Patient was seen today for follow-up, regarding multiple renal related issues Events of 24 hours were noted,no complaints of any oseas Patient denies any complaints of shortness of breath Interdisciplinary Notes were also reviewed from past 24 hours Vitals labs intake output medications: Reviewed Past medical history: Reviewed Allergies: Reviewed Social history: Reviewed Family history: Reviewed Physical examination Gen.: No acute distress HEENT: Mild pallor nor icterus no uremic order Neck: Supple without any mass or JVD Chest: Clear to auscultation anteriorly,some tenderness on the chest wall Heart: Regular rate and rhythm S1 and S2 heard Abdomen: Soft nontender no suprapubic fullness no masses no renal bruit Extremity: Edema , no peripheral cyanosis Skin: No petechial rashes dry skin Assessment and plan Renal failure in a patient who has multiple risk factor for chronic kidney disease including nonsteroidal drug use, hypertension, poor eating habit and lifestyle. He is a very poor historian and is currently not being followed by any physician on a regular basis Patient's renal function is currently worsening, with metabolic acidosis patient doesn't need need initiation of renal replacement therapy which was discussed with him at length including catheter placement he was also educated about dialysis and all questions were answered,patient agrees to proceed Will follow-up on the pending lab, at this time Rhabdomyolysis needs follow-up on, CPK I believe it could be traumatic/also, has broken rib Anemia mild currently 11.3, platelet count stable Hypernatremia appears to be better Metabolic acidosis worsening with renal failure to follow , denies any drug or toxin use in any form Leukocytosis check urine culture Proteinuria with acute renal failure to follow By protein creatinine ratio current proteinuria is around 7 g Renal ultrasonogram already shows echogenic kidneys ? CKD At some point he may require kidney biopsy if his kidney function does not improve Chest and rib x-ray shows bilateral rib fracture, patient is currently incarcerated Had a detailed discussion with patient about renal care plan, Renal prognosis currently is guarded/poor Significant lab finding were discussed with patient unexplained and simple [place] Patient does have good understanding about renal related issues We'll continue to follow and make recommendation from renal standpoint Objective - Vital Signs Vital signs: Vital Signs - 12hr 04/08/17 04/08/17 04/08/17 04:33 09:25 09:26 Temperature 98.9 F 97.8 F Pulse Rate 77 73 Respiratory 18 18 Rate Blood Pressure 157/105 162/109 O2 Sat by Pulse 97 97 Oximetry 04/08/17 09:28 Temperature 98.7 F Pulse Rate Respiratory 18 Rate Blood Pressure 136/91 O2 Sat by Pulse Oximetry - Lab 04/08/17 02:19 04/08/17 02:19 Most recent lab results Calcium 7.8 mg/dL (8.4-10.2) L 04/08/17 02:19 Urine Creatinine 87.4 mg/dL (0.1-20.0) H 04/06/17 12:44 Urine Sodium 73 mEq/L 04/06/17 12:44 Urine Total Protein 589 mg/dL (5-11.8) H 04/06/17 12:44
[2017-04-08] MEDS ORDERED: LEVAQUIN 500MG/100ML 500 MG/100 ML BAG IV SCH (10:00)
--- NOTE | 2017-04-08 10:46 | Progress Note ---
Assessment and Plan Assessment and plan: Sepsis. Improved. Continue to follow up blood culture. IV antibiotics. Leukocytosis improved. Acute renal failure on probable CKD. Etiology is likely secondary to acute kidney injury/ATN from sepsis as well as rhabdomyolysis. Follow-up CT scan of the abdomen and pelvis showed no evidence of obstruction but did reveal perinephric stranding. Renal ultrasound revealed echogenic kidneys. Nephrology following Rhabdomyolysis. CK has normalized. Hypernatremia. Improved. UTI. Continue IV antibiotics. Follow-up urine cultures. CT scan of the abdomen and pelvis revealed perinephric stranding. Toxic metabolic Encephalopathy. Etiology may be secondary to 1 and 2. Abdominal pain. CT scan of the abdomen and pelvis showing no acute intra- abdominal pathology. Accelerated hypertension. Improved. Increase Labetalol 400 mg twice a day. History Interval history: No new issues overnight. Hospitalist Physical - Constitutional Vitals: Temp Pulse Resp BP Pulse Ox 98.7 F 73 18 136/91 97 04/08/17 09:28 04/08/17 09:25 04/08/17 09:28 04/08/17 09:28 04/08/17 09:25 General appearance: Present: no acute distress - EENT Eyes: Present: PERRL, EOM intact ENT: hearing intact, clear oral mucosa, dentition normal - Neck Neck: Present: supple, normal ROM - Respiratory Respiratory effort: normal Respiratory: bilateral: CTA - Cardiovascular Rhythm: regular Heart Sounds: Present: S1 & S2. Absent: gallop, rub - Extremities Extremities: no ischemia, No edema, Full ROM - Abdominal General gastrointestinal: soft, non-tender, non-distended, normal bowel sounds - Integumentary Integumentary: Present: clear, warm, dry - Neurologic Neurologic: CNII-XII intact, moves all extremities Results - Labs CBC & Chem 7: 04/08/17 02:19 04/08/17 02:19 Labs: Laboratory Last Values WBC 9.2 K/mm3 (4.5-11.0) 04/08/17 02:19 RBC 3.40 M/mm3 (3.65-5.03) L 04/08/17 02:19 Hgb 11.3 gm/dl (11.8-15.2) L 04/08/17 02:19 Hct 33.2 % (35.5-45.6) L 04/08/17 02:19 MCV 98 fl (84-94) H 04/08/17 02:19 MCH 33 pg (28-32) H 04/08/17 02:19 MCHC 34 % (32-34) 04/08/17 02:19 RDW 12.6 % (13.2-15.2) L 04/08/17 02:19 Plt Count 160 K/mm3 (140-440) 04/08/17 02:19 Lymph % (Auto) 11.2 % (13.4-35.0) L 04/08/17 02:19 [place] % (Auto) 7.6 % (0.0-7.3) H 04/08/17 02:19 Eos % (Auto) 2.7 % (0.0-4.3) 04/08/17 02:19 Baso % (Auto) 0.7 % (0.0-1.8) 04/08/17 02:19 Lymph # 1.0 K/mm3 (1.2-5.4) L 04/08/17 02:19 [place] # 0.7 K/mm3 (0.0-0.8) 04/08/17 02:19 Eos # 0.3 K/mm3 (0.0-0.4) 04/08/17 02:19 Baso # 0.1 K/mm3 (0.0-0.1) 04/08/17 02:19 Seg Neutrophils % 77.8 % (40.0-70.0) H 04/08/17 02:19 Seg Neutrophils # 7.1 K/mm3 (1.8-7.7) 04/08/17 02:19 POC ABG pH 7.325 (7.35-7.45) L 04/05/17 17:59 POC ABG pCO2 34.2 (35-45) L 04/05/17 17:59 POC ABG pO2 132 (80-105) H 04/05/17 17:59 POC ABG HCO3 17.8 04/05/17 17:59 POC ABG Total CO2 19 04/05/17 17:59 POC ABG O2 Sat 99 04/05/17 17:59 POC ABG Base Excess -8 04/05/17 17:59 VBG pH 7.186 (7.320-7.420) L* 04/05/17 16:36 FiO2 28 % 04/05/17 17:59 Sodium 137 mmol/L (137-145) 04/08/17 02:19 Potassium 4.8 mmol/L (3.6-5.0) 04/08/17 02:19 Chloride 105.1 mmol/L (98-107) 04/08/17 02:19 Carbon Dioxide 15 mmol/L (22-30) L 04/08/17 02:19 Anion Gap 22 mmol/L 04/08/17 02:19 BUN 38 mg/dL (9-20) H 04/08/17 02:19 Creatinine 7.0 mg/dL (0.8-1.5) H 04/08/17 02:19 Estimated GFR 10 ml/min 04/08/17 02:19 BUN/Creatinine Ratio 5.42 % 04/08/17 02:19 Glucose 108 mg/dL (75-100) H 04/08/17 02:19 POC Glucose 130 (70-105) H 04/05/17 16:55 Osmolality 308 Mosm/kg 04/06/17 20:24 Lactic Acid 2.00 mmol/L (0.7-2.0) 04/07/17 08:03 Uric Acid 9.2 mg/dL (3.5-7.6) H 04/07/17 08:02 Calcium 7.8 mg/dL (8.4-10.2) L 04/08/17 02:19 Total Bilirubin 1.20 mg/dL (0.1-1.2) 04/06/17 11:02 AST 160 units/L (5-40) H 04/06/17 11:02 ALT 48 units/L (7-56) 04/06/17 11:02 Alkaline Phosphatase 59 units/L (35-129) 04/06/17 11:02 Ammonia 76.0 umol/L (25-60) H 04/05/17 17:41 Total Creatine Kinase 145 units/L (55-170) 04/07/17 08:02 CK-MB (CK-2) 7.6 ng/mL (0.0-4.0) H 04/05/17 16:36 CK-MB (CK-2) Rel Index 0.6 (0-4) 04/05/17 16:36 Troponin T < 0.010 ng/mL (0.00-0.029) 04/08/17 01:43 C-Reactive Protein 2.90 mg/dL (0.00-1.30) H 04/06/17 20:24 Total Protein 6.1 g/dL (6.3-8.2) L D 04/06/17 11:02 Albumin 3.6 g/dL (3.9-5) L 04/06/17 11:02 Albumin/Globulin Ratio 1.4 % 04/06/17 11:02 TSH 1.700 mlU/mL (0.270-4.200) 04/05/17 16:36 Free T4 0.82 ng/dL (0.76-1.46) 04/05/17 16:36 Urine Color Red (Yellow) 04/06/17 12:44 Urine Turbidity Cloudy (Clear) 04/06/17 12:44 Urine pH 6.0 (5.0-7.0) 04/06/17 12:44 Ur Specific [place] 1.012 (1.003-1.030) 04/06/17 12:44 Urine Protein 100 mg/dl mg/dL (Negative) 04/06/17 12:44 Urine Glucose (UA) 50 mg/dL (Negative) 04/06/17 12:44 Urine Ketones Neg mg/dL (Negative) 04/06/17 12:44 Urine Blood Lg (Negative) 04/06/17 12:44 Urine Nitrite Neg (Negative) 04/06/17 12:44 Urine Bilirubin Neg (Negative) 04/06/17 12:44 Urine Urobilinogen < 2.0 mg/dL (<2.0) 04/06/17 12:44 Ur Leukocyte Esterase Mod (Negative) 04/06/17 12:44 Urine WBC (Auto) > 182.0 /HPF (0.0-6.0) H 04/06/17 12:44 Urine RBC (Auto) > 182.0 /HPF (0.0-6.0) 04/06/17 12:44 U Epithel Cells (Auto) 1.0 /HPF (0-13.0) 04/06/17 09:00 Urine Bacteria (Auto) 2+ /HPF (Negative) 04/06/17 12:44 Urine WBC Clumps 3+ /HPF 04/06/17 12:44 Urine Mucus 1+ /HPF 04/06/17 12:44 Urine Creatinine 87.4 mg/dL (0.1-20.0) H 04/06/17 12:44 Urine Sodium 73 mEq/L 04/06/17 12:44 Urine Total Protein 589 mg/dL (5-11.8) H 04/06/17 12:44 Urine Opiates Screen Presumptive negative 04/05/17 16:36 Urine Methadone Screen Presumptive negative 04/05/17 16:36 Ur Barbiturates Screen Presumptive negative 04/05/17 16:36 Ur Phencyclidine Scrn Presumptive negative 04/05/17 16:36 Ur Amphetamines Screen Presumptive positive 04/05/17 16:36 U Benzodiazepines Scrn Presumptive negative 04/05/17 16:36 Urine Cocaine Screen Presumptive positive 04/05/17 16:36 U Marijuana (THC) Screen Presumptive negative 04/05/17 16:36 Drugs of Abuse Note Disclamer 04/05/17 16:36 Plasma/Serum Alcohol < 0.01 gm% (0-0.07) 04/05/17 16:36 Hepatitis A IgM Ab Non-reactive (NonReactive) 04/06/17 20:24 Hep Bs Antigen Non-reactive (Negative) 04/06/17 20:24 Hep B Core IgM Ab Non-reactive (NonReactive) 04/06/17 20:24 Hepatitis C Antibody Non-reactive (NonReactive) 04/06/17 20:24
[2017-04-08] MEDS: PEPCID PO SCH (11:00)
[2017-04-08] MEDS: NORMODYNE PO SCH ×3 (11:18→22:47)
[2017-04-08] MEDS ORDERED: NACL 0.9% 100 ML IV PRN (12:07)
--- NOTE | 2017-04-08 12:40 | Progress Note ---
Assessment and Plan - Patient Problems (1) Sepsis Current Visit: Yes Status: Acute Qualifiers: Sepsis type: S Plan to address problem: - improved - follow cultures - de-escalated AB's empirically - trend lactate & crp prn (2) ARF (acute renal failure) Current Visit: Yes Status: Acute Qualifiers: Acute renal failure type: A Plan to address problem: - making urine - likely rhabdomyolysis element - per nephrology (3) Altered mental status Current Visit: Yes Status: Acute Qualifiers: Altered mental status type: A Coma depth: C Coma timing: C Plan to address problem: - improved - psychiatry consultation (4) Left-sided chest wall pain Current Visit: Yes Status: Acute Plan to address problem: - no obvious fractures on CXR - incentive spirometry - prn analgesia Subjective Date of service: 04/08/17 Principal diagnosis: Sepsis Syndrome Interval history: Seen and examined at bedside; 24 hour events reviewed; nursing and respiratory care staff consulted; no adverse overnight events reported to me; doing better clinically; still complains of generalized aching but denies acute SOB; no hemoptysis Objective Vital Signs - 12hr 04/08/17 04/08/17 04/08/17 04:33 09:25 09:26 Temperature 98.9 F 97.8 F Pulse Rate 77 73 Respiratory 18 18 Rate Blood Pressure 157/105 162/109 O2 Sat by Pulse 97 97 Oximetry 04/08/17 04/08/17 09:28 11:18 Temperature 98.7 F Pulse Rate Respiratory 18 Rate Blood Pressure 136/91 136/91 O2 Sat by Pulse Oximetry Constitutional: no acute distress, alert Eyes: non-icteric ENT: oropharynx moist Neck: supple, no lymphadenopathy Effort: normal Ascultation: Bilateral: clear Cardiovascular: regular rate and rhythm Gastrointestinal: normoactive bowel sounds, soft, non-tender, non-distended Integumentary: normal, other (abrasions over arms and legs) Extremities: no cyanosis, no edema Neurologic: normal mental status, non-focal exam, pupils equal and round, CN II- XII normal Psychiatric: mood appropriate CBC and BMP: 04/13/17 05:45 04/15/17 05:59 ABG, PT/INR, D-dimer: ABG POC ABG pH 7.325 (7.35-7.45) L 04/05/17 17:59 POC ABG pCO2 34.2 (35-45) L 04/05/17 17:59 POC ABG pO2 132 (80-105) H 04/05/17 17:59 POC ABG HCO3 17.8 04/05/17 17:59 POC ABG Total CO2 19 04/05/17 17:59 POC ABG O2 Sat 99 04/05/17 17:59 Abnormal lab findings: Abnormal Labs 04/06/17 04/06/17 04/06/17 00:54 08:52 08:52 WBC 12.0 H RBC 3.30 L Hgb 10.8 L D Hct 32.1 L D MCV 97 H MCH 33 H RDW 12.6 L Lymph % (Auto) 5.9 L [place] % (Auto) 8.6 H Lymph # 0.7 L [place] # 1.0 H Seg Neutrophils % 84.7 H Seg Neutrophils # 10.1 H Sodium 168 H* D Potassium 3.3 L D Chloride 115.6 H Carbon Dioxide 13 L BUN 21 H Creatinine 2.0 H Glucose 73 L Lactic Acid 2.10 H* Uric Acid Calcium 5.6 L* D AST Total Creatine Kinase C-Reactive Protein Total Protein Albumin Urine WBC (Auto) Urine Creatinine Urine Total Protein 04/06/17 04/06/17 04/06/17 09:00 11:02 11:02 WBC 14.2 H RBC Hgb Hct MCV 99 H MCH RDW 12.9 L Lymph % (Auto) 9.7 L [place] % (Auto) 7.7 H Lymph # [place] # 1.1 H Seg Neutrophils % 81.6 H Seg Neutrophils # 11.6 H Sodium 146 H D Potassium Chloride 111.8 H Carbon Dioxide 19 L BUN 26 H Creatinine 2.8 H Glucose 117 H Lactic Acid Uric Acid Calcium 8.0 L D AST 160 H Total Creatine Kinase C-Reactive Protein Total Protein 6.1 L D Albumin 3.6 L Urine WBC (Auto) > 182.0 H Urine Creatinine Urine Total Protein 04/06/17 04/06/17 04/06/17 12:44 12:44 20:24 WBC RBC Hgb Hct MCV MCH RDW Lymph % (Auto) [place] % (Auto) Lymph # [place] # Seg Neutrophils % Seg Neutrophils # Sodium Potassium Chloride Carbon Dioxide BUN Creatinine Glucose Lactic Acid Uric Acid Calcium AST Total Creatine Kinase C-Reactive Protein 2.90 H Total Protein Albumin Urine WBC (Auto) > 182.0 H Urine Creatinine 87.4 H Urine Total Protein 589 H 04/07/17 04/07/17 04/07/17 08:02 08:02 08:03 WBC 12.6 H RBC Hgb Hct MCV 99 H MCH RDW 12.4 L Lymph % (Auto) 7.0 L [place] % (Auto) 7.5 H Lymph # 0.9 L [place] # 0.9 H Seg Neutrophils % 83.0 H Seg Neutrophils # 10.5 H Sodium Potassium Chloride 110.8 H Carbon Dioxide 17 L BUN 35 H Creatinine 5.3 H D Glucose 123 H Lactic Acid Uric Acid 9.2 H Calcium 7.8 L AST Total Creatine Kinase 5277 H C-Reactive Protein Total Protein Albumin Urine WBC (Auto) Urine Creatinine Urine Total Protein 04/08/17 04/08/17 02:19 02:19 WBC RBC 3.40 L Hgb 11.3 L Hct 33.2 L MCV 98 H MCH 33 H RDW 12.6 L Lymph % (Auto) 11.2 L [place] % (Auto) 7.6 H Lymph # 1.0 L [place] # Seg Neutrophils % 77.8 H Seg Neutrophils # Sodium Potassium Chloride Carbon Dioxide 15 L BUN 38 H Creatinine 7.0 H Glucose 108 H Lactic Acid Uric Acid Calcium 7.8 L AST Total Creatine Kinase C-Reactive Protein Total Protein Albumin Urine WBC (Auto) Urine Creatinine Urine Total Protein
--- NOTE | 2017-04-08 13:00 | Event Note ---
Date: 04/08/17 Patient and renal failure, nephrology has requested a Vas-Cath. We will proceed today
[2017-04-08] MEDS: NACL 0.9% 1000 ML 1,000 ML IV SCH (13:53)
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
[2017-04-08] MEDS ORDERED: HEPARIN/NS 5000 UNIT/500ML(CATH LAB) 1,000 ML IR ONE (15:45)
[2017-04-08] MEDS ORDERED: XYLOCAINE 2% INFILTRATI ONE (15:45)
[2017-04-08] MEDS ORDERED: HEPARIN 10,000 UNITS/10 ML ONE (15:46)
[2017-04-08] MEDS ORDERED: NACL 0.9% 250ML 250 ML ONE (15:46)
[2017-04-08] MEDS ORDERED: SUBLIMAZE ONE (15:52)
[2017-04-08] MEDS ORDERED: VERSED ONE (15:52)
[2017-04-08] MEDS ORDERED: ANCEF/STERILE WATER 2 GM/20 ML 2 GM/20 ML SYRINGE IV ONE (15:52)
--- NOTE | 2017-04-08 16:34 | Operative Report ---
Operative Report Operative Report: Procedure: 1. Non-tunneled dialysis catheter placement in the right internal jugular vein 2. Ultrasound guided puncture of the right internal jugular vein. Date: 04/08/2017 Physician: Stephanie Toledo MD Indication: 42 year old male with renal failure, in need of dialysis. Technique: The patient was placed in the supine position and prepped and draped in the usual sterile fashion. A timeout was performed. Local anesthetic was administered. Under direct ultrasound guidance, the right internal jugular vein was accessed with a 21-gauge needle. This was exchanged over a mandrel wire for a 4 Hebrew exchange dilator. Via the exchange dilator, and 035 wire was advanced into the IVC. After serial tissue dilation, the dialysis catheter was advanced, until the tip was in the right atrium. Vacuum aspiration and flushing was performed. Each lumen was instilled with heparin. The catheter was secured to the skin with 2-0 Ethilon suture. Sterile dressings were placed, and the patient was transported from the procedure area in stable condition. Findings: 1. Ultrasound demonstrates a patent and compressible right internal jugular vein. 2. There is successful placement of a 15 cm non-tunneled dialysis catheter via the right internal jugular vein. 3. Each lumen flushes and aspirates briskly. 4. Positioning of the catheter tip within the right atrium is confirmed by fluoroscopy. The catheter is ready for use.
[2017-04-08] MEDS: HEPARIN IV PRN (20:53)
[2017-04-08] MEDS: LOVENOX SUB-Q SCH (22:48)
[2017-04-09] MEDS: DILAUDID IV PRN (06:51)
[2017-04-09] MEDS ORDERED: ZOFRAN IV PRN (07:30)
[2017-04-09 07:49] LABS: Hematocrit 29.4 % (35.5-45.6); Hemoglobin 10.3 gm/dl (11.8-15.2); Mean Corpuscular HGB Conc 35 % (32-34); Mean Corpuscular Hemoglobin 33 pg (28-32); Mean Corpuscular Volume 95 fl (84-94); Platelet Count 136 K/mm3 (140-440); Red Cell Distribution Width 12.4 % (13.2-15.2); White Blood Count 7.7 K/mm3 (4.5-11.0)
[2017-04-09 07:56] LABS: Basophils % (Auto) 0.7 % (0.0-1.8); Eosinophils % (Auto) 1.3 % (0.0-4.3)
[2017-04-09 08:03] LABS: BUN/Creatinine Ratio 4.03; Calcium 8.1 mg/dL (8.4-10.2); Chloride 100.8 mmol/L (98-107); Potassium 4.7 mmol/L (3.6-5.0)
[2017-04-09] MEDS ORDERED: NACL 0.9% 100 ML IV PRN (09:59)
--- NOTE | 2017-04-09 10:01 | Progress Note ---
Assessment and Plan Assessment: * Acute kidney injury attributed to ATN vs other * Polysubstance abuse * Rhabdomyolysis, mild - resolved * Proteinuria * Schizoaffective DO * Chronic NSAID use Plan: * Hemodialysis today * Await pending serologic work up * Obtain urine eos * Avoid potential nephrotoxins * Dose medications for renal function * Psychiatry following Subjective Date of service: 04/09/17 Interval history: Patient has no complaint today Objective - Vital Signs Vital signs: Vital Signs - 12hr 04/08/17 04/08/17 04/09/17 22:23 22:47 07:52 Temperature 100.0 F H 98.0 F Pulse Rate 73 72 66 Respiratory 17 18 Rate Blood Pressure 174/102 174/102 143/92 O2 Sat by Pulse 96 93 Oximetry - General Appearance General appearance: well-developed, well-nourished EENT: ATNC, other (poor dentition) Respiratory: Present: Clear to Ascultation Cardiology: regular, S1S2 Gastrointestinal: normal, no tenderness, no distended Neurologic: alert and oriented x3 Musculoskeletal: other (no edema) Psychiatric: cooperative - Lab 04/09/17 07:21 04/09/17 07:21 Most recent lab results Calcium 8.1 mg/dL (8.4-10.2) L 04/09/17 07:21 Urine Creatinine 87.4 mg/dL (0.1-20.0) H 04/06/17 12:44 Urine Sodium 73 mEq/L 04/06/17 12:44 Urine Total Protein 589 mg/dL (5-11.8) H 04/06/17 12:44
[2017-04-09] MEDS: PEPCID PO SCH (10:10)
[2017-04-09] MEDS: NORMODYNE PO SCH ×2 (10:11→22:35)
--- NOTE | 2017-04-09 11:55 | Progress Note ---
Assessment and Plan (1) Sepsis Current Visit: Yes Status: Acute Qualifiers: Sepsis type: S Plan to address problem: - improved - follow cultures - de-escalated AB's empirically - trend lactate & crp prn (2) ARF (acute renal failure) Current Visit: Yes Status: Acute Qualifiers: Acute renal failure type: A Plan to address problem: - making urine - likely rhabdomyolysis element - per nephrology (3) Altered mental status Current Visit: Yes Status: Acute Qualifiers: Altered mental status type: A Coma depth: C Coma timing: C Plan to address problem: - improved - psychiatry consultation (4) Left-sided chest wall pain Current Visit: Yes Status: Acute Plan to address problem: - Bilateral fractures on Rib series X-ray - continue incentive spirometry - continue prn analgesia Subjective Date of service: 04/09/17 Principal diagnosis: Sepsis Syndrome; Chest Pains; Bilateral Rib Fractures Interval history: Seen and examined at bedside; 24 hour events reviewed; nursing and respiratory care staff consulted; no adverse overnight events reported to me; still with some chest pain; no hemoptysis; denies increased SOB Objective Vital Signs - 12hr 04/09/17 04/09/17 04/09/17 07:52 10:00 10:11 Temperature 98.0 F Pulse Rate 66 Respiratory 18 Rate Blood Pressure 143/92 143/92 O2 Sat by Pulse 93 97 Oximetry Constitutional: no acute distress, alert Eyes: non-icteric Neck: supple, no lymphadenopathy Effort: normal Ascultation: Bilateral: clear, other (tender to palpation over mid ribcage posterolaterally) Cardiovascular: regular rate and rhythm Gastrointestinal: normoactive bowel sounds, soft, non-tender, non-distended Integumentary: normal Extremities: no cyanosis, no edema, pulses normal, no ischemia or petechiae Neurologic: normal mental status, non-focal exam, pupils equal and round, CN II- XII normal Psychiatric: mood appropriate CBC and BMP: 04/13/17 05:45 04/15/17 05:59 ABG, PT/INR, D-dimer: ABG POC ABG pH 7.325 (7.35-7.45) L 04/05/17 17:59 POC ABG pCO2 34.2 (35-45) L 04/05/17 17:59 POC ABG pO2 132 (80-105) H 04/05/17 17:59 POC ABG HCO3 17.8 04/05/17 17:59 POC ABG Total CO2 19 04/05/17 17:59 POC ABG O2 Sat 99 04/05/17 17:59 Abnormal lab findings: Abnormal Labs 04/06/17 04/06/17 04/06/17 00:54 08:52 08:52 WBC 12.0 H RBC 3.30 L Hgb 10.8 L D Hct 32.1 L D MCV 97 H MCH 33 H MCHC RDW 12.6 L Plt Count Lymph % (Auto) 5.9 L [place] % (Auto) 8.6 H Lymph # 0.7 L [place] # 1.0 H Seg Neutrophils % 84.7 H Seg Neutrophils # 10.1 H Sodium 168 H* D Potassium 3.3 L D Chloride 115.6 H Carbon Dioxide 13 L BUN 21 H Creatinine 2.0 H Glucose 73 L Lactic Acid 2.10 H* Uric Acid Calcium 5.6 L* D AST Total Creatine Kinase C-Reactive Protein Total Protein Albumin Urine WBC (Auto) Urine Creatinine Urine Total Protein 04/06/17 04/06/17 04/06/17 09:00 11:02 11:02 WBC 14.2 H RBC Hgb Hct MCV 99 H MCH MCHC RDW 12.9 L Plt Count Lymph % (Auto) 9.7 L [place] % (Auto) 7.7 H Lymph # [place] # 1.1 H Seg Neutrophils % 81.6 H Seg Neutrophils # 11.6 H Sodium 146 H D Potassium Chloride 111.8 H Carbon Dioxide 19 L BUN 26 H Creatinine 2.8 H Glucose 117 H Lactic Acid Uric Acid Calcium 8.0 L D AST 160 H Total Creatine Kinase C-Reactive Protein Total Protein 6.1 L D Albumin 3.6 L Urine WBC (Auto) > 182.0 H Urine Creatinine Urine Total Protein 04/06/17 04/06/17 04/06/17 12:44 12:44 20:24 WBC RBC Hgb Hct MCV MCH MCHC RDW Plt Count Lymph % (Auto) [place] % (Auto) Lymph # [place] # Seg Neutrophils % Seg Neutrophils # Sodium Potassium Chloride Carbon Dioxide BUN Creatinine Glucose Lactic Acid Uric Acid Calcium AST Total Creatine Kinase C-Reactive Protein 2.90 H Total Protein Albumin Urine WBC (Auto) > 182.0 H Urine Creatinine 87.4 H Urine Total Protein 589 H 0904/07/17 04/07/17 08:02 08:02 08:03 WBC 12.6 H RBC Hgb Hct MCV 99 H MCH MCHC RDW 12.4 L Plt Count Lymph % (Auto) 7.0 L [place] % (Auto) 7.5 H Lymph # 0.9 L [place] # 0.9 H Seg Neutrophils % 83.0 H Seg Neutrophils # 10.5 H Sodium Potassium Chloride 110.8 H Carbon Dioxide 17 L BUN 35 H Creatinine 5.3 H D Glucose 123 H Lactic Acid Uric Acid 9.2 H Calcium 7.8 L AST Total Creatine Kinase 5277 H C-Reactive Protein Total Protein Albumin Urine WBC (Auto) Urine Creatinine Urine Total Protein 04/08/17 04/08/17 04/09/17 02:19 02:19 07:21 WBC RBC 3.40 L 3.10 L Hgb 11.3 L 10.3 L Hct 33.2 L 29.4 L MCV 98 H 95 H MCH 33 H 33 H MCHC 35 H RDW 12.6 L 12.4 L Plt Count 136 L Lymph % (Auto) 11.2 L 8.1 L [place] % (Auto) 7.6 H 9.5 H Lymph # 1.0 L 0.6 L [place] # Seg Neutrophils % 77.8 H 80.4 H Seg Neutrophils # Sodium Potassium Chloride Carbon Dioxide 15 L BUN 38 H Creatinine 7.0 H Glucose 108 H Lactic Acid Uric Acid Calcium 7.8 L AST Total Creatine Kinase C-Reactive Protein Total Protein Albumin Urine WBC (Auto) Urine Creatinine Urine Total Protein 04/09/17 07:21 WBC RBC Hgb Hct MCV MCH MCHC RDW Plt Count Lymph % (Auto) [place] % (Auto) Lymph # [place] # Seg Neutrophils % Seg Neutrophils # Sodium Potassium Chloride Carbon Dioxide BUN 25 H Creatinine 6.2 H Glucose 121 H Lactic Acid Uric Acid Calcium 8.1 L AST Total Creatine Kinase C-Reactive Protein Total Protein Albumin Urine WBC (Auto) Urine Creatinine Urine Total Protein Chest x-ray: image reviewed
--- NOTE | 2017-04-09 12:10 | Progress Note ---
Assessment and Plan Assessment and plan: Sepsis. Improved. Continue to follow up blood culture. IV antibiotics. Leukocytosis improved. Acute renal failure on probable CKD. Etiology is likely secondary to acute kidney injury/ATN from sepsis as well as rhabdomyolysis. Follow-up CT scan of the abdomen and pelvis showed no evidence of obstruction but did reveal perinephric stranding. Renal ultrasound revealed echogenic kidneys. Patient received HD catheter yesterday and started hemodialysis. Nephrology following Rhabdomyolysis. CK has normalized. Hypernatremia. Improved. UTI. Continue IV antibiotics. Follow-up urine cultures. CT scan of the abdomen and pelvis revealed perinephric stranding. Toxic metabolic Encephalopathy. Etiology may be secondary to 1 and 2. Abdominal pain. CT scan of the abdomen and pelvis showing no acute intra- abdominal pathology. Accelerated hypertension. Improved. Cont. Labetalol 400 mg twice a day. History Interval history: No new issues overnight. Hospitalist Physical - Constitutional Vitals: Temp Pulse Resp BP Pulse Ox 98.0 F 66 18 143/92 97 04/09/17 07:52 04/09/17 07:52 04/09/17 07:52 04/09/17 10:11 04/09/17 10:00 General appearance: Present: no acute distress - EENT Eyes: Present: PERRL, EOM intact ENT: hearing intact, clear oral mucosa, dentition normal - Neck Neck: Present: supple, normal ROM - Respiratory Respiratory effort: normal Respiratory: bilateral: CTA - Cardiovascular Rhythm: regular Heart Sounds: Present: S1 & S2. Absent: gallop, rub - Extremities Extremities: no ischemia, No edema, Full ROM - Abdominal General gastrointestinal: soft, non-tender, non-distended, normal bowel sounds - Integumentary Integumentary: Present: clear, warm, dry - Neurologic Neurologic: CNII-XII intact, moves all extremities Results - Labs CBC & Chem 7: 04/09/17 07:21 04/09/17 07:21 Labs: Laboratory Last Values WBC 7.7 K/mm3 (4.5-11.0) 04/09/17 07:21 RBC 3.10 M/mm3 (3.65-5.03) L 04/09/17 07:21 Hgb 10.3 gm/dl (11.8-15.2) L 04/09/17 07:21 Hct 29.4 % (35.5-45.6) L 04/09/17 07:21 MCV 95 fl (84-94) H 04/09/17 07:21 MCH 33 pg (28-32) H 04/09/17 07:21 MCHC 35 % (32-34) H 04/09/17 07:21 RDW 12.4 % (13.2-15.2) L 04/09/17 07:21 Plt Count 136 K/mm3 (140-440) L 04/09/17 07:21 Lymph % (Auto) 8.1 % (13.4-35.0) L 04/09/17 07:21 [place] % (Auto) 9.5 % (0.0-7.3) H 04/09/17 07:21 Eos % (Auto) 1.3 % (0.0-4.3) 04/09/17 07:21 Baso % (Auto) 0.7 % (0.0-1.8) 04/09/17 07:21 Lymph # 0.6 K/mm3 (1.2-5.4) L 04/09/17 07:21 [place] # 0.8 K/mm3 (0.0-0.8) 04/09/17 07:21 Eos # 0.1 K/mm3 (0.0-0.4) 04/09/17 07:21 Baso # 0.1 K/mm3 (0.0-0.1) 04/09/17 07:21 Seg Neutrophils % 80.4 % (40.0-70.0) H 04/09/17 07:21 Seg Neutrophils # 6.4 K/mm3 (1.8-7.7) 04/09/17 07:21 POC ABG pH 7.325 (7.35-7.45) L 04/05/17 17:59 POC ABG pCO2 34.2 (35-45) L 04/05/17 17:59 POC ABG pO2 132 (80-105) H 04/05/17 17:59 POC ABG HCO3 17.8 04/05/17 17:59 POC ABG Total CO2 19 04/05/17 17:59 POC ABG O2 Sat 99 04/05/17 17:59 POC ABG Base Excess -8 04/05/17 17:59 VBG pH 7.186 (7.320-7.420) L* 04/05/17 16:36 FiO2 28 % 04/05/17 17:59 Sodium 138 mmol/L (137-145) 04/09/17 07:21 Potassium 4.7 mmol/L (3.6-5.0) 04/09/17 07:21 Chloride 100.8 mmol/L (98-107) 04/09/17 07:21 Carbon Dioxide 24 mmol/L (22-30) D 04/09/17 07:21 Anion Gap 18 mmol/L 04/09/17 07:21 BUN 25 mg/dL (9-20) H 04/09/17 07:21 Creatinine 6.2 mg/dL (0.8-1.5) H 04/09/17 07:21 Estimated GFR 12 ml/min 04/09/17 07:21 BUN/Creatinine Ratio 4.03 % 04/09/17 07:21 Glucose 121 mg/dL (75-100) H 04/09/17 07:21 POC Glucose 130 (70-105) H 04/05/17 16:55 Osmolality 308 Mosm/kg 04/06/17 20:24 Lactic Acid 2.00 mmol/L (0.7-2.0) 04/07/17 08:03 Uric Acid 9.2 mg/dL (3.5-7.6) H 04/07/17 08:02 Calcium 8.1 mg/dL (8.4-10.2) L 04/09/17 07:21 Total Bilirubin 1.20 mg/dL (0.1-1.2) 04/06/17 11:02 AST 160 units/L (5-40) H 04/06/17 11:02 ALT 48 units/L (7-56) 04/06/17 11:02 Alkaline Phosphatase 59 units/L (35-129) 04/06/17 11:02 Ammonia 76.0 umol/L (25-60) H 04/05/17 17:41 Total Creatine Kinase 145 units/L (55-170) 04/07/17 08:02 CK-MB (CK-2) 7.6 ng/mL (0.0-4.0) H 04/05/17 16:36 CK-MB (CK-2) Rel Index 0.6 (0-4) 04/05/17 16:36 Troponin T < 0.010 ng/mL (0.00-0.029) 04/08/17 01:43 C-Reactive Protein 2.90 mg/dL (0.00-1.30) H 04/06/17 20:24 Total Protein 6.1 g/dL (6.3-8.2) L D 04/06/17 11:02 Albumin 3.6 g/dL (3.9-5) L 04/06/17 11:02 Albumin/Globulin Ratio 1.4 % 04/06/17 11:02 TSH 1.700 mlU/mL (0.270-4.200) 04/05/17 16:36 Free T4 0.82 ng/dL (0.76-1.46) 04/05/17 16:36 Urine Color Red (Yellow) 04/06/17 12:44 Urine Turbidity Cloudy (Clear) 04/06/17 12:44 Urine pH 6.0 (5.0-7.0) 04/06/17 12:44 Ur Specific [place] 1.012 (1.003-1.030) 04/06/17 12:44 Urine Protein 100 mg/dl mg/dL (Negative) 04/06/17 12:44 Urine Glucose (UA) 50 mg/dL (Negative) 04/06/17 12:44 Urine Ketones Neg mg/dL (Negative) 04/06/17 12:44 Urine Blood Lg (Negative) 04/06/17 12:44 Urine Nitrite Neg (Negative) 04/06/17 12:44 Urine Bilirubin Neg (Negative) 04/06/17 12:44 Urine Urobilinogen < 2.0 mg/dL (<2.0) 04/06/17 12:44 Ur Leukocyte Esterase Mod (Negative) 04/06/17 12:44 Urine WBC (Auto) > 182.0 /HPF (0.0-6.0) H 04/06/17 12:44 Urine RBC (Auto) > 182.0 /HPF (0.0-6.0) 04/06/17 12:44 U Epithel Cells (Auto) 1.0 /HPF (0-13.0) 04/06/17 09:00 Urine Bacteria (Auto) 2+ /HPF (Negative) 04/06/17 12:44 Urine WBC Clumps 3+ /HPF 04/06/17 12:44 Urine Mucus 1+ /HPF 04/06/17 12:44 Urine Creatinine 87.4 mg/dL (0.1-20.0) H 04/06/17 12:44 Urine Sodium 73 mEq/L 04/06/17 12:44 Urine Total Protein 589 mg/dL (5-11.8) H 04/06/17 12:44 Urine Opiates Screen Presumptive negative 04/05/17 16:36 Urine Methadone Screen Presumptive negative 04/05/17 16:36 Ur Barbiturates Screen Presumptive negative 04/05/17 16:36 Ur Phencyclidine Scrn Presumptive negative 04/05/17 16:36 Ur Amphetamines Screen Presumptive positive 04/05/17 16:36 U Benzodiazepines Scrn Presumptive negative 04/05/17 16:36 Urine Cocaine Screen Presumptive positive 04/05/17 16:36 U Marijuana (THC) Screen Presumptive negative 04/05/17 16:36 Drugs of Abuse Note Disclamer 04/05/17 16:36 Plasma/Serum Alcohol < 0.01 gm% (0-0.07) 04/05/17 16:36 Immunofix Electrophor see below 04/06/17 20:24 Hepatitis A IgM Ab Non-reactive (NonReactive) 04/06/17 20:24 Hep Bs Antigen Non-reactive (Negative) 04/06/17 20:24 Hep B Core IgM Ab Non-reactive (NonReactive) 04/06/17 20:24 Hepatitis C Antibody Non-reactive (NonReactive) 04/06/17 20:24
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
[2017-04-09] MEDS: MORPHINE IV PRN ×3 (13:02→21:03)
[2017-04-09] MEDS ORDERED: NACL 0.9 (PRIMING MACHINE ONLY DIALYSIS) MC ONE (17:05)
[2017-04-09] MEDS: HEPARIN IV PRN (18:22)
[2017-04-09] MEDS: NACL 0.9% 1000 ML 1,000 ML IV SCH (18:50)
[2017-04-09] MEDS ORDERED: CEPHULAC PO SCH (22:00)
[2017-04-09] MEDS: LOVENOX SUB-Q SCH (22:35)
[2017-04-10] MEDS: MORPHINE IV PRN ×5 (02:05→21:45)
[2017-04-10 05:50] LABS: Basophils % (Auto) 0.5 % (0.0-1.8); Eosinophils % (Auto) 2.7 % (0.0-4.3); Hematocrit 30.2 % (35.5-45.6); Hemoglobin 10.5 gm/dl (11.8-15.2); Mean Corpuscular HGB Conc 35 % (32-34); Mean Corpuscular Hemoglobin 33 pg (28-32); Mean Corpuscular Volume 95 fl (84-94); Platelet Count 129 K/mm3 (140-440); Red Blood Count 3.19 M/mm3 (3.65-5.03); Red Cell Distribution Width 12.6 % (13.2-15.2); White Blood Count 7.6 K/mm3 (4.5-11.0)
[2017-04-10 06:44] LABS: BUN/Creatinine Ratio 3.38; Calcium 7.8 mg/dL (8.4-10.2)
[2017-04-10 06:45] LABS: Potassium 4.4 mmol/L (3.6-5.0)
[2017-04-10] MEDS: NACL 0.9% 1000 ML 1,000 ML IV SCH (09:35)
[2017-04-10] MEDS: LEVAQUIN PO SCH (09:37)
[2017-04-10] MEDS: NORMODYNE PO SCH ×2 (09:37→21:45)
[2017-04-10] MEDS: PEPCID PO SCH (09:37)
--- NOTE | 2017-04-10 09:50 | Progress Note ---
Assessment and Plan Assessment: * Acute kidney injury attributed to ATN vs other * Polysubstance abuse * Rhabdomyolysis, mild - resolved * Proteinuria * Schizoaffective DO * Chronic NSAID use * Low grade fever Plan: * Hemodialysis today - UF as tolerated. Will hold HD tomorrow unless urgent need * Await pending serologic work up - ANCA, BRE; C3/C4 and HIV ordered today * Strict I/O ordered * Will possibly require renal bx next week if renal function fails to improve * Empiric abx per primary team * Avoid potential nephrotoxins * Dose medications for renal function * Psychiatry following Subjective Date of service: 04/10/17 Interval history: Patient reports that urine is more clear. He has no complaints today. Objective - Vital Signs Vital signs: Vital Signs - 12hr 04/09/17 04/10/17 22:35 07:37 Temperature 99.9 F H Pulse Rate 90 62 Respiratory 16 Rate Blood Pressure 150/70 177/100 O2 Sat by Pulse 97 Oximetry - General Appearance General appearance: well-developed, well-nourished EENT: ATNC Respiratory: Present: Clear to Ascultation Cardiology: regular, S1S2 Gastrointestinal: normal, no tenderness, no distended Neurologic: no focal deficit Musculoskeletal: other (no edema) Psychiatric: cooperative - Lab 04/10/17 05:14 04/10/17 05:14 Most recent lab results Calcium 7.8 mg/dL (8.4-10.2) L 04/10/17 05:14 Urine Creatinine 87.4 mg/dL (0.1-20.0) H 04/06/17 12:44 Urine Sodium 73 mEq/L 04/06/17 12:44 Urine Total Protein 589 mg/dL (5-11.8) H 04/06/17 12:44
[2017-04-10] MEDS ORDERED: NACL 0.9% 100 ML IV PRN (09:52)
--- NOTE | 2017-04-10 12:32 | Progress Note ---
Assessment and Plan Assessment and plan: Sepsis. Improved. Continue to follow up blood culture. IV antibiotics. Leukocytosis improved. Acute renal failure/ATN. Etiology is likely secondary to acute kidney injury/ ATN from sepsis as well as rhabdomyolysis. Follow-up CT scan of the abdomen and pelvis showed no evidence of obstruction but did reveal perinephric stranding. Renal ultrasound revealed echogenic kidneys. Patient started on hemodialysis. Continue per Nephrology. Rhabdomyolysis. CK has normalized. Hypernatremia. Improved. UTI. Continue IV antibiotics. Follow-up urine cultures. CT scan of the abdomen and pelvis revealed perinephric stranding. Hematuria. Etiology likely secondary to [place] trauma. Irrigate bladder and monitor closely. Recheck CBC. Toxic metabolic Encephalopathy. Etiology may be secondary to 1 and 2. Abdominal pain. CT scan of the abdomen and pelvis showing no acute intra- abdominal pathology. Accelerated hypertension. Improved. Cont. Labetalol 400 mg twice a day. History Interval history: No new issues overnight. Hospitalist Physical - Constitutional Vitals: Temp Pulse Resp BP Pulse Ox 99.9 F H 62 16 177/100 98 04/10/17 07:37 04/10/17 07:37 04/10/17 07:37 04/10/17 07:37 04/10/17 09:59 General appearance: Present: no acute distress - EENT Eyes: Present: PERRL, EOM intact ENT: hearing intact, clear oral mucosa, dentition normal - Neck Neck: Present: supple, normal ROM - Respiratory Respiratory effort: normal Respiratory: bilateral: CTA - Cardiovascular Rhythm: regular Heart Sounds: Present: S1 & S2. Absent: gallop, rub - Extremities Extremities: no ischemia, No edema, Full ROM - Abdominal General gastrointestinal: soft, non-tender, non-distended, normal bowel sounds - Integumentary Integumentary: Present: clear, warm, dry - Neurologic Neurologic: CNII-XII intact, moves all extremities Results - Labs CBC & Chem 7: 04/10/17 05:14 04/10/17 05:14 Labs: Laboratory Last Values WBC 7.6 K/mm3 (4.5-11.0) 04/10/17 05:14 RBC 3.19 M/mm3 (3.65-5.03) L 04/10/17 05:14 Hgb 10.5 gm/dl (11.8-15.2) L 04/10/17 05:14 Hct 30.2 % (35.5-45.6) L 04/10/17 05:14 MCV 95 fl (84-94) H 04/10/17 05:14 MCH 33 pg (28-32) H 04/10/17 05:14 MCHC 35 % (32-34) H 04/10/17 05:14 RDW 12.6 % (13.2-15.2) L 04/10/17 05:14 Plt Count 129 K/mm3 (140-440) L 04/10/17 05:14 Lymph % (Auto) 11.5 % (13.4-35.0) L 04/10/17 05:14 [place] % (Auto) 14.3 % (0.0-7.3) H 04/10/17 05:14 Eos % (Auto) 2.7 % (0.0-4.3) 04/10/17 05:14 Baso % (Auto) 0.5 % (0.0-1.8) 04/10/17 05:14 Lymph # 0.9 K/mm3 (1.2-5.4) L 04/10/17 05:14 [place] # 1.1 K/mm3 (0.0-0.8) H 04/10/17 05:14 Eos # 0.2 K/mm3 (0.0-0.4) 04/10/17 05:14 Baso # 0.0 K/mm3 (0.0-0.1) 04/10/17 05:14 Seg Neutrophils % 71.0 % (40.0-70.0) H 04/10/17 05:14 Seg Neutrophils # 5.4 K/mm3 (1.8-7.7) 04/10/17 05:14 POC ABG pH 7.325 (7.35-7.45) L 04/05/17 17:59 POC ABG pCO2 34.2 (35-45) L 04/05/17 17:59 POC ABG pO2 132 (80-105) H 04/05/17 17:59 POC ABG HCO3 17.8 04/05/17 17:59 POC ABG Total CO2 19 04/05/17 17:59 POC ABG O2 Sat 99 04/05/17 17:59 POC ABG Base Excess -8 04/05/17 17:59 VBG pH 7.186 (7.320-7.420) L* 04/05/17 16:36 FiO2 28 % 04/05/17 17:59 Sodium 141 mmol/L (137-145) 04/10/17 05:14 Potassium 4.4 mmol/L (3.6-5.0) 04/10/17 05:14 Chloride 102.0 mmol/L (98-107) 04/10/17 05:14 Carbon Dioxide 25 mmol/L (22-30) 04/10/17 05:14 Anion Gap 18 mmol/L 04/10/17 05:14 BUN 20 mg/dL (9-20) 04/10/17 05:14 Creatinine 5.9 mg/dL (0.8-1.5) H 04/10/17 05:14 Estimated GFR 13 ml/min 04/10/17 05:14 BUN/Creatinine Ratio 3.38 % 04/10/17 05:14 Glucose 114 mg/dL (75-100) H 04/10/17 05:14 POC Glucose 130 (70-105) H 04/05/17 16:55 Osmolality 308 Mosm/kg 04/06/17 20:24 Lactic Acid 2.00 mmol/L (0.7-2.0) 04/07/17 08:03 Uric Acid 9.2 mg/dL (3.5-7.6) H 04/07/17 08:02 Calcium 7.8 mg/dL (8.4-10.2) L 04/10/17 05:14 Ionized Calcium 4.5 mg/dL (4.8-5.6) L 04/07/17 14:49 Total Bilirubin 1.20 mg/dL (0.1-1.2) 04/06/17 11:02 AST 160 units/L (5-40) H 04/06/17 11:02 ALT 48 units/L (7-56) 04/06/17 11:02 Alkaline Phosphatase 59 units/L (35-129) 04/06/17 11:02 Ammonia 76.0 umol/L (25-60) H 04/05/17 17:41 Total Creatine Kinase 145 units/L (55-170) 04/07/17 08:02 CK-MB (CK-2) 7.6 ng/mL (0.0-4.0) H 04/05/17 16:36 CK-MB (CK-2) Rel Index 0.6 (0-4) 04/05/17 16:36 Troponin T < 0.010 ng/mL (0.00-0.029) 04/08/17 01:43 C-Reactive Protein 2.90 mg/dL (0.00-1.30) H 04/06/17 20:24 Total Protein 6.1 g/dL (6.3-8.2) L D 04/06/17 11:02 Albumin 3.6 g/dL (3.9-5) L 04/06/17 11:02 Albumin/Globulin Ratio 1.4 % 04/06/17 11:02 TSH 1.700 mlU/mL (0.270-4.200) 04/05/17 16:36 Free T4 0.82 ng/dL (0.76-1.46) 04/05/17 16:36 Urine Color Red (Yellow) 04/06/17 12:44 Urine Turbidity Cloudy (Clear) 04/06/17 12:44 Urine pH 6.0 (5.0-7.0) 04/06/17 12:44 Ur Specific [place] 1.012 (1.003-1.030) 04/06/17 12:44 Urine Protein 100 mg/dl mg/dL (Negative) 04/06/17 12:44 Urine Glucose (UA) 50 mg/dL (Negative) 04/06/17 12:44 Urine Ketones Neg mg/dL (Negative) 04/06/17 12:44 Urine Blood Lg (Negative) 04/06/17 12:44 Urine Nitrite Neg (Negative) 04/06/17 12:44 Urine Bilirubin Neg (Negative) 04/06/17 12:44 Urine Urobilinogen < 2.0 mg/dL (<2.0) 04/06/17 12:44 Ur Leukocyte Esterase Mod (Negative) 04/06/17 12:44 Urine WBC (Auto) > 182.0 /HPF (0.0-6.0) H 04/06/17 12:44 Urine RBC (Auto) > 182.0 /HPF (0.0-6.0) 04/06/17 12:44 U Epithel Cells (Auto) 1.0 /HPF (0-13.0) 04/06/17 09:00 Urine Bacteria (Auto) 2+ /HPF (Negative) 04/06/17 12:44 Urine WBC Clumps 3+ /HPF 04/06/17 12:44 Urine Mucus 1+ /HPF 04/06/17 12:44 Urine Creatinine 87.4 mg/dL (0.1-20.0) H 04/06/17 12:44 Urine Sodium 73 mEq/L 04/06/17 12:44 Urine Total Protein 589 mg/dL (5-11.8) H 04/06/17 12:44 Urine Opiates Screen Presumptive negative 04/05/17 16:36 Urine Methadone Screen Presumptive negative 04/05/17 16:36 Ur Barbiturates Screen Presumptive negative 04/05/17 16:36 Ur Phencyclidine Scrn Presumptive negative 04/05/17 16:36 Ur Amphetamines Screen Presumptive positive 04/05/17 16:36 U Benzodiazepines Scrn Presumptive negative 04/05/17 16:36 Urine Cocaine Screen Presumptive positive 04/05/17 16:36 U Marijuana (THC) Screen Presumptive negative 04/05/17 16:36 Drugs of Abuse Note Disclamer 04/05/17 16:36 Plasma/Serum Alcohol < 0.01 gm% (0-0.07) 04/05/17 16:36 Immunofix Electrophor see below 04/06/17 20:24 Hepatitis A IgM Ab Non-reactive (NonReactive) 04/06/17 20:24 Hep Bs Antigen Non-reactive (Negative) 04/06/17 20:24 Hep B Core IgM Ab Non-reactive (NonReactive) 04/06/17 20:24 Hepatitis C Antibody Non-reactive (NonReactive) 04/06/17 20:24
[2017-04-10] MEDS ORDERED: CITRATE OF MAGNESIA PO ONE (13:00)
[2017-04-10] MEDS ORDERED: NACL 0.9 (PRIMING MACHINE ONLY DIALYSIS) MC ONE (13:54)
[2017-04-10 14:21] LABS: HIV-1 Antigen p24 Non React (Non React); HIVR-1/2 Ab Non React (Non React)
[2017-04-10] MEDS: HEPARIN IV PRN (15:43)
[2017-04-10] MEDS: LOVENOX SUB-Q SCH (21:46)
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
[2017-04-11] MEDS: MORPHINE IV PRN ×4 (01:43→22:17)
[2017-04-11 09:14] LABS: BUN/Creatinine Ratio 4.51; Calcium 8.1 mg/dL (8.4-10.2); Chloride 100.7 mmol/L (98-107)
[2017-04-11 09:15] LABS: Basophils % (Auto) 0.9 % (0.0-1.8); Eosinophils % (Auto) 2.5 % (0.0-4.3); Hematocrit 28.9 % (35.5-45.6); Mean Corpuscular HGB Conc 35 % (32-34); Mean Corpuscular Hemoglobin 33 pg (28-32); Mean Corpuscular Volume 96 fl (84-94); Platelet Count 148 K/mm3 (140-440); Red Blood Count 3.02 M/mm3 (3.65-5.03); Red Cell Distribution Width 12.7 % (13.2-15.2); White Blood Count 9.3 K/mm3 (4.5-11.0)
[2017-04-11] MEDS: PEPCID PO SCH (09:47)
[2017-04-11] MEDS: NORMODYNE PO SCH ×2 (09:47→22:18)
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
--- NOTE | 2017-04-11 10:55 | Progress Note ---
Assessment and Plan Assessment and plan: Sepsis. Improved. Continue to follow up blood culture. IV antibiotics. Leukocytosis improved. Acute renal failure/ATN. Etiology is likely secondary to acute kidney injury/ ATN from sepsis as well as rhabdomyolysis. Follow-up CT scan of the abdomen and pelvis showed no evidence of obstruction but did reveal perinephric stranding. Renal ultrasound revealed echogenic kidneys. Patient started on hemodialysis. Continue per Nephrology. Rhabdomyolysis. CK has normalized. Hypernatremia. Resolved. UTI. Continue IV antibiotics. Urine and blood cultures are negative. CT scan of the abdomen and pelvis revealed perinephric stranding. Hematuria. Etiology likely secondary to [place] trauma. Irrigate bladder and monitor closely. Recheck CBC. Toxic metabolic Encephalopathy. Etiology may be secondary to 1 and 2. Resolved Abdominal pain. CT scan of the abdomen and pelvis showing no acute intra- abdominal pathology. Accelerated hypertension. Improved. Cont. Labetalol 400 mg twice a day. Schizoaffective disorder/substance-induced psychosis. Psychiatry following. History Interval history: No new issues overnight. Patient complains of constipation. Hospitalist Physical - Constitutional Vitals: Temp Pulse Resp BP Pulse Ox 99.5 F 70 15 178/106 97 04/11/17 07:39 04/11/17 07:39 04/11/17 07:39 04/11/17 07:39 04/11/17 09:49 General appearance: Present: no acute distress - EENT Eyes: Present: PERRL, EOM intact ENT: hearing intact, clear oral mucosa, dentition normal - Neck Neck: Present: supple, normal ROM - Respiratory Respiratory effort: normal Respiratory: bilateral: CTA - Cardiovascular Rhythm: regular Heart Sounds: Present: S1 & S2. Absent: gallop, rub - Extremities Extremities: no ischemia, No edema, Full ROM - Abdominal General gastrointestinal: soft, non-tender, non-distended, normal bowel sounds - Integumentary Integumentary: Present: clear, warm, dry - Neurologic Neurologic: CNII-XII intact, moves all extremities Results - Labs CBC & Chem 7: 04/11/17 08:29 04/11/17 08:29 Labs: Laboratory Last Values WBC 9.3 K/mm3 (4.5-11.0) 04/11/17 08:29 RBC 3.02 M/mm3 (3.65-5.03) L 04/11/17 08:29 Hgb 10.0 gm/dl (11.8-15.2) L 04/11/17 08:29 Hct 28.9 % (35.5-45.6) L 04/11/17 08:29 MCV 96 fl (84-94) H 04/11/17 08:29 MCH 33 pg (28-32) H 04/11/17 08: MCHC 35 % (32-34) H 04/11/17 08:29 RDW 12.7 % (13.2-15.2) L 04/11/17 08:29 Plt Count 148 K/mm3 (140-440) 04/11/17 08: Lymph % (Auto) 9.9 % (13.4-35.0) L 04/11/17 08: [place] % (Auto) 12.5 % (0.0-7.3) H 04/11/17 08: Eos % (Auto) 2.5 % (0.0-4.3) 04/11/17 08: Baso % (Auto) 0.9 % (0.0-1.8) 04/11/17 08: Lymph # 0.9 K/mm3 (1.2-5.4) L 04/11/17 08: [place] # 1.2 K/mm3 (0.0-0.8) H 04/11/17 08:29 Eos # 0.2 K/mm3 (0.0-0.4) 04/11/17 08: Baso # 0.1 K/mm3 (0.0-0.1) 04/11/17 08: Seg Neutrophils % 74.2 % (40.0-70.0) H 04/11/17 08: Seg Neutrophils # 6.9 K/mm3 (1.8-7.7) 04/11/17 08:29 POC ABG pH 7.325 (7.35-7.45) L 04/05/17 17:59 POC ABG pCO2 34.2 (35-45) L 04/05/17 17:59 POC ABG pO2 132 (80-105) H 04/05/17 17:59 POC ABG HCO3 17.8 04/05/17 17:59 POC ABG Total CO2 19 04/05/17 17:59 POC ABG O2 Sat 99 04/05/17 17:59 POC ABG Base Excess -8 04/05/17 17:59 VBG pH 7.186 (7.320-7.420) L* 04/05/17 16:36 FiO2 28 % 04/05/17 17:59 Sodium 140 mmol/L (137-145) 04/11/17 08:29 Potassium 5.0 mmol/L (3.6-5.0) 04/11/17 08:29 Chloride 100.7 mmol/L (98-107) 04/11/17 08:29 Carbon Dioxide 26 mmol/L (22-30) 04/11/17 08:29 Anion Gap 18 mmol/L 04/11/17 08:29 BUN 28 mg/dL (9-20) H 04/11/17 08:29 Creatinine 6.2 mg/dL (0.8-1.5) H 04/11/17 08:29 Estimated GFR 12 ml/min 04/11/17 08:29 BUN/Creatinine Ratio 4.51 % 04/11/17 08:29 Glucose 113 mg/dL (75-100) H 04/11/17 08:29 POC Glucose 130 (70-105) H 04/05/17 16:55 Osmolality 308 Mosm/kg 04/06/17 20:24 Lactic Acid 2.00 mmol/L (0.7-2.0) 04/07/17 08:03 Uric Acid 9.2 mg/dL (3.5-7.6) H 04/07/17 08:02 Calcium 8.1 mg/dL (8.4-10.2) L 04/11/17 08:29 Ionized Calcium 4.5 mg/dL (4.8-5.6) L 04/07/17 14:49 Total Bilirubin 1.20 mg/dL (0.1-1.2) 04/06/17 11:02 AST 160 units/L (5-40) H 04/06/17 11:02 ALT 48 units/L (7-56) 04/06/17 11:02 Alkaline Phosphatase 59 units/L (35-129) 04/06/17 11:02 Ammonia 76.0 umol/L (25-60) H 04/05/17 17:41 Total Creatine Kinase 145 units/L (55-170) 04/07/17 08:02 CK-MB (CK-2) 7.6 ng/mL (0.0-4.0) H 04/05/17 16:36 CK-MB (CK-2) Rel Index 0.6 (0-4) 04/05/17 16:36 Troponin T < 0.010 ng/mL (0.00-0.029) 04/08/17 01:43 C-Reactive Protein 2.90 mg/dL (0.00-1.30) H 04/06/17 20:24 Total Protein 6.1 g/dL (6.3-8.2) L D 04/06/17 11:02 Albumin 3.6 g/dL (3.9-5) L 04/06/17 11:02 Albumin/Globulin Ratio 1.4 % 04/06/17 11:02 TSH 1.700 mlU/mL (0.270-4.200) 04/05/17 16:36 Free T4 0.82 ng/dL (0.76-1.46) 04/05/17 16:36 Urine Color Red (Yellow) 04/06/17 12:44 Urine Turbidity Cloudy (Clear) 04/06/17 12:44 Urine pH 6.0 (5.0-7.0) 04/06/17 12:44 Ur Specific [place] 1.012 (1.003-1.030) 04/06/17 12:44 Urine Protein 100 mg/dl mg/dL (Negative) 04/06/17 12:44 Urine Glucose (UA) 50 mg/dL (Negative) 04/06/17 12:44 Urine Ketones Neg mg/dL (Negative) 04/06/17 12:44 Urine Blood Lg (Negative) 04/06/17 12:44 Urine Nitrite Neg (Negative) 04/06/17 12:44 Urine Bilirubin Neg (Negative) 04/06/17 12:44 Urine Urobilinogen < 2.0 mg/dL (<2.0) 04/06/17 12:44 Ur Leukocyte Esterase Mod (Negative) 04/06/17 12:44 Urine WBC (Auto) > 182.0 /HPF (0.0-6.0) H 04/06/17 12:44 Urine RBC (Auto) > 182.0 /HPF (0.0-6.0) 04/06/17 12:44 U Epithel Cells (Auto) 1.0 /HPF (0-13.0) 04/06/17 09:00 Urine Bacteria (Auto) 2+ /HPF (Negative) 04/06/17 12:44 Urine WBC Clumps 3+ /HPF 04/06/17 12:44 Urine Mucus 1+ /HPF 04/06/17 12:44 Urine Creatinine 87.4 mg/dL (0.1-20.0) H 04/06/17 12:44 Urine Sodium 73 mEq/L 04/06/17 12:44 Urine Total Protein 589 mg/dL (5-11.8) H 04/06/17 12:44 Urine Opiates Screen Presumptive negative 04/05/17 16:36 Urine Methadone Screen Presumptive negative 04/05/17 16:36 Ur Barbiturates Screen Presumptive negative 04/05/17 16:36 Ur Phencyclidine Scrn Presumptive negative 04/05/17 16:36 Ur Amphetamines Screen Presumptive positive 04/05/17 16:36 U Benzodiazepines Scrn Presumptive negative 04/05/17 16:36 Urine Cocaine Screen Presumptive positive 04/05/17 16:36 U Marijuana (THC) Screen Presumptive negative 04/05/17 16:36 Drugs of Abuse Note Disclamer 04/05/17 16:36 Plasma/Serum Alcohol < 0.01 gm% (0-0.07) 04/05/17 16:36 Immunofix Electrophor see below 04/06/17 20:24 Hepatitis A IgM Ab Non-reactive (NonReactive) 04/06/17 20:24 Hep Bs Antigen Non-reactive (Negative) 04/06/17 20:24 Hep B Core IgM Ab Non-reactive (NonReactive) 04/06/17 20:24 Hepatitis C Antibody Non-reactive (NonReactive) 04/06/17 20:24 HIV 1&2 Antibody Rapid Non react (Non React) 04/10/17 13:21 HIV P24 Antigen Non react (Non React) 04/10/17 13:21
[2017-04-11] MEDS ORDERED: CITRATE OF MAGNESIA PO ONE (11:00)
[2017-04-11] MEDS ORDERED: MIRALAX 3350 PO PRN (12:00)
[2017-04-11] MEDS: PERCOCET 5/325 PO PRN (12:54)
--- NOTE | 2017-04-11 13:29 | Progress Note ---
Assessment and Plan Assessment: * Nonoliguric acute kidney injury attributed to ATN vs other * Polysubstance abuse * Rhabdomyolysis, mild - resolved * Proteinuria * Schizoaffective DO * Chronic NSAID use * Low grade fever Plan: * Will hold HD today. Reassess for HD need tomorrow - kim catheter in place w / adquate UOP * Await pending serologic work up * Strict I/O ordered * Will possibly require renal bx next week if renal function fails to improve * Empiric abx per primary team * Avoid potential nephrotoxins * Dose medications for renal function * Psychiatry following Subjective Date of service: 04/11/17 Interval history: Patient reports occasional nausea. Otherwise, he is without complaint. Objective - Vital Signs Vital signs: Vital Signs - 12hr 04/11/17 04/11/17 04/11/17 07:39 09:49 12:16 Temperature 99.5 F 99.5 F Pulse Rate 70 64 Respiratory 15 18 Rate Blood Pressure 178/106 172/105 O2 Sat by Pulse 97 97 96 Oximetry - General Appearance General appearance: well-developed, well-nourished EENT: ATNC Respiratory: Present: Clear to Ascultation Cardiology: regular, S1S2 Gastrointestinal: normal, no tenderness, no distended Integumentary: no rash Neurologic: no focal deficit Musculoskeletal: other (no edema) Psychiatric: cooperative - Lab 04/11/17 08:29 04/11/17 08:29 Most recent lab results Calcium 8.1 mg/dL (8.4-10.2) L 04/11/17 08:29 Urine Creatinine 87.4 mg/dL (0.1-20.0) H 04/06/17 12:44 Urine Sodium 73 mEq/L 04/06/17 12:44 Urine Total Protein 589 mg/dL (5-11.8) H 04/06/17 12:44
[2017-04-11] MEDS: NACL 0.9% 1000 ML 1,000 ML IV SCH (17:46)
[2017-04-11 20:48] LABS: Myeloperoxidase Antibody <1.0 AI (<1.0)
[2017-04-11] MEDS: LOVENOX SUB-Q SCH (22:17)
[2017-04-12] MEDS: NACL 0.9% 1000 ML 1,000 ML IV SCH ×2 (04:38→18:03)
[2017-04-12] MEDS: MORPHINE IV PRN ×3 (04:38→15:23)
[2017-04-12 08:27] LABS: Basophils % (Auto) 0.9 % (0.0-1.8); Eosinophils % (Auto) 2.4 % (0.0-4.3); Hematocrit 27.8 % (35.5-45.6); Hemoglobin 9.6 gm/dl (11.8-15.2); Mean Corpuscular HGB Conc 35 % (32-34); Mean Corpuscular Hemoglobin 33 pg (28-32); Mean Corpuscular Volume 95 fl (84-94); Platelet Count 175 K/mm3 (140-440); Red Blood Count 2.92 M/mm3 (3.65-5.03); Red Cell Distribution Width 12.7 % (13.2-15.2); White Blood Count 9.5 K/mm3 (4.5-11.0)
[2017-04-12 08:39] LABS: BUN/Creatinine Ratio 5.69; Calcium 8.2 mg/dL (8.4-10.2); Chloride 99.9 mmol/L (98-107)
[2017-04-12 09:00] LABS: Potassium 6.4 mmol/L (3.6-5.0)
[2017-04-12] MEDS ORDERED: NACL 0.9% 100 ML IV PRN (09:13)
--- NOTE | 2017-04-12 09:58 | Progress Note ---
Assessment and Plan Assessment: * Nonoliguric acute kidney injury attributed to ATN vs other * Polysubstance abuse * Rhabdomyolysis, mild - resolved * Proteinuria * Schizoaffective DO * Chronic NSAID use * Persistent low grade fever Plan: * Hemodialysis today in light of hyperkalemia. No UF as patient w/ adequate UOP * Await pending serologic work up * Strict I/O ordered; kim catheter in place * Will possibly require renal bx this week if his renal function fails to improve * Empiric abx per primary team * Avoid potential nephrotoxins * Dose medications for renal function * Psychiatry following Subjective Date of service: 04/12/17 Objective - Vital Signs Vital signs: Vital Signs - 12hr 04/11/17 04/11/17 04/12/17 23:33 23:36 07:32 Temperature 100.8 F H 100.8 F H 99.0 F Pulse Rate 77 70 Respiratory 22 22 18 Rate Blood Pressure 152/90 144/95 Blood Pressure 152/90 [Left] O2 Sat by Pulse 94 96 Oximetry - General Appearance General appearance: well-developed, well-nourished EENT: ATNC Respiratory: Present: Clear to Ascultation Cardiology: regular, S1S2 Gastrointestinal: normal, no tenderness, no distended Musculoskeletal: other (no edema) Psychiatric: cooperative - Lab 04/12/17 07:33 04/12/17 07:33 Most recent lab results Calcium 8.2 mg/dL (8.4-10.2) L 04/12/17 07:33 Urine Creatinine 87.4 mg/dL (0.1-20.0) H 04/06/17 12:44 Urine Sodium 73 mEq/L 04/06/17 12:44 Urine Total Protein 589 mg/dL (5-11.8) H 04/06/17 12:44
[2017-04-12] MEDS: LEVAQUIN PO SCH (10:10)
[2017-04-12] MEDS: PEPCID PO SCH (10:10)
[2017-04-12] MEDS: NORMODYNE PO SCH ×3 (10:12→21:21)
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
--- NOTE | 2017-04-12 11:44 | Progress Note ---
Assessment and Plan Assessment and plan: Sepsis. Blood cultures are negative. Continued IV antibiotics. Leukocytosis improved. However, patient still with low-grade fever. ID consultation. Acute renal failure/ATN. Etiology is likely secondary to acute kidney injury/ ATN from sepsis as well as rhabdomyolysis. Hemodialysis today. Hyperkalemia. Hemodialysis today. Rhabdomyolysis. CK has normalized. Hypernatremia. Resolved. UTI. Continue IV antibiotics. Urine and blood cultures are negative. CT scan of the abdomen and pelvis revealed perinephric stranding. Toxic metabolic Encephalopathy. Etiology may be secondary to 1 and 2. Resolved Abdominal pain. CT scan of the abdomen and pelvis showing no acute intra- abdominal pathology. Accelerated hypertension. Increase Labetalol. Schizoaffective disorder/substance-induced psychosis. Psychiatry following. History Interval history: No new issues overnight. Patient complains of constipation. Hospitalist Physical - Constitutional Vitals: Temp Pulse Resp BP Pulse Ox 99.0 F 66 18 184/104 96 04/12/17 10:35 04/12/17 10:45 04/12/17 10:35 04/12/17 10:45 04/12/17 07:32 General appearance: Present: no acute distress - EENT Eyes: Present: PERRL, EOM intact ENT: hearing intact, clear oral mucosa, dentition normal - Neck Neck: Present: supple, normal ROM - Respiratory Respiratory effort: normal Respiratory: bilateral: CTA - Cardiovascular Rhythm: regular Heart Sounds: Present: S1 & S2. Absent: gallop, rub - Extremities Extremities: no ischemia, No edema, Full ROM - Abdominal General gastrointestinal: soft, non-tender, non-distended, normal bowel sounds - Integumentary Integumentary: Present: clear, warm, dry - Neurologic Neurologic: CNII-XII intact, moves all extremities Results - Labs CBC & Chem 7: 04/12/17 07:33 04/12/17 07:33 Labs: Laboratory Last Values WBC 9.5 K/mm3 (4.5-11.0) 04/12/17 07:33 RBC 2.92 M/mm3 (3.65-5.03) L 04/12/17 07:33 Hgb 9.6 gm/dl (11.8-15.2) L 04/12/17 07:33 Hct 27.8 % (35.5-45.6) L 04/12/17 07:33 MCV 95 fl (84-94) H 04/12/17 07:33 MCH 33 pg (28-32) H 04/12/17 07:33 MCHC 35 % (32-34) H 04/12/17 07:33 RDW 12.7 % (13.2-15.2) L 04/12/17 07:33 Plt Count 175 K/mm3 (140-440) 04/12/17 07:33 Lymph % (Auto) 8.1 % (13.4-35.0) L 04/12/17 07:33 [place] % (Auto) 11.1 % (0.0-7.3) H 04/12/17 07:33 Eos % (Auto) 2.4 % (0.0-4.3) 04/12/17 07:33 Baso % (Auto) 0.9 % (0.0-1.8) 04/12/17 07:33 Lymph # 0.8 K/mm3 (1.2-5.4) L 04/12/17 07:33 [place] # 1.1 K/mm3 (0.0-0.8) H 04/12/17 07:33 Eos # 0.2 K/mm3 (0.0-0.4) 04/12/17 07:33 Baso # 0.1 K/mm3 (0.0-0.1) 04/12/17 07:33 Seg Neutrophils % 77.5 % (40.0-70.0) H 04/12/17 07:33 Seg Neutrophils # 7.4 K/mm3 (1.8-7.7) 04/12/17 07:33 POC ABG pH 7.325 (7.35-7.45) L 04/05/17 17:59 POC ABG pCO2 34.2 (35-45) L 04/05/17 17:59 POC ABG pO2 132 (80-105) H 04/05/17 17:59 POC ABG HCO3 17.8 04/05/17 17:59 POC ABG Total CO2 19 04/05/17 17:59 POC ABG O2 Sat 99 04/05/17 17:59 POC ABG Base Excess -8 04/05/17 17:59 VBG pH 7.186 (7.320-7.420) L* 04/05/17 16:36 FiO2 28 % 04/05/17 17:59 Sodium 139 mmol/L (137-145) 04/12/17 07:33 Potassium 6.4 mmol/L (3.6-5.0) H* D 04/12/17 07:33 Chloride 99.9 mmol/L (98-107) 04/12/17 07:33 Carbon Dioxide 27 mmol/L (22-30) 04/12/17 07:33 Anion Gap 19 mmol/L 04/12/17 07:33 BUN 45 mg/dL (9-20) H 04/12/17 07:33 Creatinine 7.9 mg/dL (0.8-1.5) H 04/12/17 07:33 Estimated GFR 9 ml/min 04/12/17 07:33 BUN/Creatinine Ratio 5.69 % 04/12/17 07:33 Glucose 105 mg/dL (75-100) H 04/12/17 07:33 POC Glucose 130 (70-105) H 04/05/17 16:55 Osmolality 308 Mosm/kg 04/06/17 20:24 Lactic Acid 2.00 mmol/L (0.7-2.0) 04/07/17 08:03 Uric Acid 9.2 mg/dL (3.5-7.6) H 04/07/17 08:02 Calcium 8.2 mg/dL (8.4-10.2) L 04/12/17 07:33 Ionized Calcium 4.5 mg/dL (4.8-5.6) L 04/07/17 14:49 Total Bilirubin 1.20 mg/dL (0.1-1.2) 04/06/17 11:02 AST 160 units/L (5-40) H 04/06/17 11:02 ALT 48 units/L (7-56) 04/06/17 11:02 Alkaline Phosphatase 59 units/L (35-129) 04/06/17 11:02 Ammonia 76.0 umol/L (25-60) H 04/05/17 17:41 Total Creatine Kinase 145 units/L (55-170) 04/07/17 08:02 CK-MB (CK-2) 7.6 ng/mL (0.0-4.0) H 04/05/17 16:36 CK-MB (CK-2) Rel Index 0.6 (0-4) 04/05/17 16:36 Troponin T < 0.010 ng/mL (0.00-0.029) 04/08/17 01:43 C-Reactive Protein 2.90 mg/dL (0.00-1.30) H 04/06/17 20:24 Total Protein 6.1 g/dL (6.3-8.2) L D 04/06/17 11:02 Albumin 3.6 g/dL (3.9-5) L 04/06/17 11:02 Albumin/Globulin Ratio 1.4 % 04/06/17 11:02 TSH 1.700 mlU/mL (0.270-4.200) 04/05/17 16:36 Free T4 0.82 ng/dL (0.76-1.46) 04/05/17 16:36 Urine Color Red (Yellow) 04/06/17 12:44 Urine Turbidity Cloudy (Clear) 04/06/17 12:44 Urine pH 6.0 (5.0-7.0) 04/06/17 12:44 Ur Specific [place] 1.012 (1.003-1.030) 04/06/17 12:44 Urine Protein 100 mg/dl mg/dL (Negative) 04/06/17 12:44 Urine Glucose (UA) 50 mg/dL (Negative) 04/06/17 12:44 Urine Ketones Neg mg/dL (Negative) 04/06/17 12:44 Urine Blood Lg (Negative) 04/06/17 12:44 Urine Nitrite Neg (Negative) 04/06/17 12:44 Urine Bilirubin Neg (Negative) 04/06/17 12:44 Urine Urobilinogen < 2.0 mg/dL (<2.0) 04/06/17 12:44 Ur Leukocyte Esterase Mod (Negative) 04/06/17 12:44 Urine WBC (Auto) > 182.0 /HPF (0.0-6.0) H 04/06/17 12:44 Urine RBC (Auto) > 182.0 /HPF (0.0-6.0) 04/06/17 12:44 U Epithel Cells (Auto) 1.0 /HPF (0-13.0) 04/06/17 09:00 Urine Bacteria (Auto) 2+ /HPF (Negative) 04/06/17 12:44 Urine WBC Clumps 3+ /HPF 04/06/17 12:44 Urine Mucus 1+ /HPF 04/06/17 12:44 Urine Creatinine 87.4 mg/dL (0.1-20.0) H 04/06/17 12:44 Urine Sodium 73 mEq/L 04/06/17 12:44 Urine Total Protein 589 mg/dL (5-11.8) H 04/06/17 12:44 Urine Opiates Screen Presumptive negative 04/05/17 16:36 Urine Methadone Screen Presumptive negative 04/05/17 16:36 Ur Barbiturates Screen Presumptive negative 04/05/17 16:36 Ur Phencyclidine Scrn Presumptive negative 04/05/17 16:36 Ur Amphetamines Screen Presumptive positive 04/05/17 16:36 U Benzodiazepines Scrn Presumptive negative 04/05/17 16:36 Urine Cocaine Screen Presumptive positive 04/05/17 16:36 U Marijuana (THC) Screen Presumptive negative 04/05/17 16:36 Drugs of Abuse Note Disclamer 04/05/17 16:36 Plasma/Serum Alcohol < 0.01 gm% (0-0.07) 04/05/17 16:36 Immunofix Electrophor see below 04/06/17 20:24 Proteinase 3 (PR3) Ab <1.0 AI (<1.0) 04/07/17 14:49 Myeloperoxidase Ab <1.0 AI (<1.0) 04/07/17 14:49 Hepatitis A IgM Ab Non-reactive (NonReactive) 04/06/17 20:24 Hep Bs Antigen Non-reactive (Negative) 04/06/17 20:24 Hep B Core IgM Ab Non-reactive (NonReactive) 04/06/17 20:24 Hepatitis C Antibody Non-reactive (NonReactive) 04/06/17 20:24 HIV 1&2 Antibody Rapid Non react (Non React) 04/10/17 13:21 HIV P24 Antigen Non react (Non React) 04/10/17 13:21
[2017-04-12] MEDS ORDERED: NACL 0.9 (PRIMING MACHINE ONLY DIALYSIS) MC ONE (14:19)
[2017-04-12] MEDS: HEPARIN IV PRN (15:47)
[2017-04-12] MEDS: PERCOCET 5/325 PO PRN (19:59)
[2017-04-12] MEDS: PROVENTIL IH PRN (21:20)
[2017-04-12] MEDS: LOVENOX SUB-Q SCH (21:22)
[2017-04-12] MEDS: BENADRYL IV PRN (21:35)
[2017-04-13] MEDS: MORPHINE IV PRN ×2 (02:53→08:52)
[2017-04-13] MEDS: BENADRYL IV PRN ×2 (02:53→20:54)
[2017-04-13 06:40] LABS: Basophils % (Auto) 0.5 % (0.0-1.8); Eosinophils % (Auto) 2.2 % (0.0-4.3); Mean Corpuscular HGB Conc 35 % (32-34); Mean Corpuscular Hemoglobin 33 pg (28-32); Mean Corpuscular Volume 96 fl (84-94); Platelet Count 173 K/mm3 (140-440); Red Blood Count 2.71 M/mm3 (3.65-5.03); Red Cell Distribution Width 12.7 % (13.2-15.2); White Blood Count 8.7 K/mm3 (4.5-11.0)
[2017-04-13] MEDS: NACL 0.9% 1000 ML 1,000 ML IV SCH (07:36)
[2017-04-13] MEDS: NORMODYNE PO SCH ×3 (08:34→20:57)
--- NOTE | 2017-04-13 09:03 | Progress Note ---
Assessment and Plan Assessment: * Nonoliguric acute kidney injury attributed to ATN vs other * Polysubstance abuse * Hypertension * Rhabdomyolysis, mild - resolved * Proteinuria * Schizoaffective DO * Chronic NSAID use * Persistent low grade fever Plan: * BMP pending * D/C IVF * D/C kim catheter * Await pending serologic work up * Will possibly require renal bx this week if his renal function fails to improve * Needs better BP control. Will add Norvasc 10mg daily. Continue Labetalol TID * Empiric abx per primary team * Avoid potential nephrotoxins * Dose medications for renal function * Psychiatry following Subjective Date of service: 04/13/17 Interval history: Patient has no complaints. He is s/p HD yesterday. Objective - Vital Signs Vital signs: Vital Signs - 12hr 04/12/17 04/12/17 04/12/17 21:20 21:21 21:37 Temperature Pulse Rate 73 Pulse Rate [ 77 80 Bilateral Throughout] Pulse Rate [ Right Radial] Respiratory Rate Respiratory 12 15 Rate [Bilateral Throughout] Blood Pressure 146/89 O2 Sat by Pulse Oximetry 04/12/17 04/13/17 04/13/17 22:00 00:00 02:53 Temperature 99.5 F Pulse Rate 75 Pulse Rate [ Bilateral Throughout] Pulse Rate [ 75 Right Radial] Respiratory 18 18 18 Rate Respiratory Rate [Bilateral Throughout] Blood Pressure 148/88 O2 Sat by Pulse 94 Oximetry 04/13/17 04/13/17 04/13/17 03:23 07:31 08:34 Temperature 98.7 F Pulse Rate 75 75 Pulse Rate [ Bilateral Throughout] Pulse Rate [ Right Radial] Respiratory 18 18 Rate Respiratory Rate [Bilateral Throughout] Blood Pressure 180/105 180/105 O2 Sat by Pulse 95 Oximetry - General Appearance General appearance: well-developed, well-nourished EENT: ATNC Respiratory: Present: Clear to Ascultation Cardiology: regular, S1S2 Gastrointestinal: normal, no tenderness, no distended Musculoskeletal: other (no edema) Psychiatric: cooperative - Lab 04/13/17 05:45 04/12/17 07:33 Most recent lab results Calcium 8.2 mg/dL (8.4-10.2) L 04/12/17 07:33 Urine Creatinine 87.4 mg/dL (0.1-20.0) H 04/06/17 12:44 Urine Sodium 73 mEq/L 04/06/17 12:44 Urine Total Protein 589 mg/dL (5-11.8) H 04/06/17 12:44
[2017-04-13 09:24] LABS: BUN/Creatinine Ratio 6.46; Calcium 8.3 mg/dL (8.4-10.2); Chloride 99.9 mmol/L (98-107); Potassium 5.7 mmol/L (3.6-5.0)
--- NOTE | 2017-04-13 10:35 | Progress Note ---
Assessment and Plan Assessment and plan: --Sepsis. Persistent fever, Blood cultures are negative. Continued IV antibiotics. Leukocytosis improved patient still with low-grade fever. ID following s/p LP today, f/u CSF analysis Echocardiogram; ejection fraction 50-55%, no evidence of endocarditis Continue vancomycin and Rocephin per ID --Severe back pain; patient reports back surgery lumbosacral spine x-ray changes, postoperative findings noted , --Acute renal failure/ATN. Etiology is likely secondary to acute kidney injury/ ATN from sepsis as well as rhabdomyolysis. Nephrology following --Acute renal failure: Hemodialysis as needed per nephrology --Hyperkalemia. Management per nephrology --Rhabdomyolysis. CK has normalized. --Substance abuse; cocaine and amphetamines, counseling done patient strongly advised which occasional drug use --Hypernatremia. Resolved. --UTI. Continue IV antibiotics. Urine and blood cultures are negative. CT scan of the abdomen and pelvis revealed perinephric stranding. --Toxic metabolic Encephalopathy. Resolved --Abdominal pain. CT scan of the abdomen and pelvis showing no acute intra- abdominal pathology. --Accelerated hypertension. Increase Labetalol. --Schizoaffective disorder/substance-induced psychosis. Psychiatry following. -- DVT prophylaxis; Lovenox renal dose Plan of care discussed with the patient and the family member at the bedside History Interval history: Patient seen and examined in his room this morning, significant other is at the bedside Complaints of severe back pain Denies chest pain or shortness of breath Hospitalist Physical - Constitutional Vitals: Temp Pulse Resp BP Pulse Ox 98.7 F 75 18 180/105 95 04/13/17 07:31 04/13/17 08:34 04/13/17 07:31 04/13/17 08:34 04/13/17 07:31 General appearance: Present: mild distress, well-nourished, obese - EENT Eyes: Present: PERRL, EOM intact - Neck Neck: Present: supple, normal ROM - Respiratory Respiratory effort: normal Respiratory: bilateral: diminished, negative: rales, rhonchi, wheezing - Cardiovascular Rhythm: regular Heart Sounds: Present: S1 & S2 - Extremities Extremities: no ischemia, No edema - Abdominal General gastrointestinal: soft, non-tender, non-distended, normal bowel sounds - Integumentary Integumentary: Present: clear, warm - Psychiatric Psychiatric: appropriate mood/affect, cooperative - Neurologic Neurologic: CNII-XII intact, moves all extremities Results - Labs CBC & Chem 7: 04/13/17 05:45 04/14/17 04:58 Labs: Laboratory Last Values WBC 8.7 K/mm3 (4.5-11.0) 04/13/17 05:45 RBC 2.71 M/mm3 (3.65-5.03) L 04/13/17 05:45 Hgb 9.0 gm/dl (11.8-15.2) L 04/13/17 05:45 Hct 26.0 % (35.5-45.6) L 04/13/17 05:45 MCV 96 fl (84-94) H 04/13/17 05:45 MCH 33 pg (28-32) H 04/13/17 05:45 MCHC 35 % (32-34) H 04/13/17 05:45 RDW 12.7 % (13.2-15.2) L 04/13/17 05:45 Plt Count 173 K/mm3 (140-440) 04/13/17 05:45 Lymph % (Auto) 10.6 % (13.4-35.0) L 04/13/17 05:45 [place] % (Auto) 11.5 % (0.0-7.3) H 04/13/17 05:45 Eos % (Auto) 2.2 % (0.0-4.3) 04/13/17 05:45 Baso % (Auto) 0.5 % (0.0-1.8) 04/13/17 05:45 Lymph # 0.9 K/mm3 (1.2-5.4) L 04/13/17 05:45 [place] # 1.0 K/mm3 (0.0-0.8) H 04/13/17 05:45 Eos # 0.2 K/mm3 (0.0-0.4) 04/13/17 05:45 Baso # 0.0 K/mm3 (0.0-0.1) 04/13/17 05:45 Seg Neutrophils % 75.2 % (40.0-70.0) H 04/13/17 05:45 Seg Neutrophils # 6.5 K/mm3 (1.8-7.7) 04/13/17 05:45 POC ABG pH 7.325 (7.35-7.45) L 04/05/17 17:59 POC ABG pCO2 34.2 (35-45) L 04/05/17 17:59 POC ABG pO2 132 (80-105) H 04/05/17 17:59 POC ABG HCO3 17.8 04/05/17 17:59 POC ABG Total CO2 19 04/05/17 17:59 POC ABG O2 Sat 99 04/05/17 17:59 POC ABG Base Excess -8 04/05/17 17:59 VBG pH 7.186 (7.320-7.420) L* 04/05/17 16:36 FiO2 28 % 04/05/17 17:59 Sodium 138 mmol/L (137-145) 04/13/17 08:43 Potassium 5.7 mmol/L (3.6-5.0) H 04/13/17 08:43 Chloride 99.9 mmol/L (98-107) 04/13/17 08:43 Carbon Dioxide 27 mmol/L (22-30) 04/13/17 08:43 Anion Gap 17 mmol/L 04/13/17 08:43 BUN 42 mg/dL (9-20) H 04/13/17 08:43 Creatinine 6.5 mg/dL (0.8-1.5) H 04/13/17 08:43 Estimated GFR 11 ml/min 04/13/17 08:43 BUN/Creatinine Ratio 6.46 % 04/13/17 08:43 Glucose 113 mg/dL (75-100) H 04/13/17 08:43 POC Glucose 130 (70-105) H 04/05/17 16:55 Osmolality 308 Mosm/kg 04/06/17 20:24 Lactic Acid 2.00 mmol/L (0.7-2.0) 04/07/17 08:03 Uric Acid 9.2 mg/dL (3.5-7.6) H 04/07/17 08:02 Calcium 8.3 mg/dL (8.4-10.2) L 04/13/17 08:43 Ionized Calcium 4.5 mg/dL (4.8-5.6) L 04/07/17 14:49 Total Bilirubin 1.20 mg/dL (0.1-1.2) 04/06/17 11:02 AST 160 units/L (5-40) H 04/06/17 11:02 ALT 48 units/L (7-56) 04/06/17 11:02 Alkaline Phosphatase 59 units/L (35-129) 04/06/17 11:02 Ammonia 76.0 umol/L (25-60) H 04/05/17 17:41 Total Creatine Kinase 145 units/L (55-170) 04/07/17 08:02 CK-MB (CK-2) 7.6 ng/mL (0.0-4.0) H 04/05/17 16:36 CK-MB (CK-2) Rel Index 0.6 (0-4) 04/05/17 16:36 Troponin T < 0.010 ng/mL (0.00-0.029) 04/08/17 01:43 C-Reactive Protein 2.90 mg/dL (0.00-1.30) H 04/06/17 20:24 Total Protein 6.1 g/dL (6.3-8.2) L D 04/06/17 11:02 Albumin 3.6 g/dL (3.9-5) L 04/06/17 11:02 Albumin/Globulin Ratio 1.4 % 04/06/17 11:02 TSH 1.700 mlU/mL (0.270-4.200) 04/05/17 16:36 Free T4 0.82 ng/dL (0.76-1.46) 04/05/17 16:36 Urine Color Red (Yellow) 04/06/17 12:44 Urine Turbidity Cloudy (Clear) 04/06/17 12:44 Urine pH 6.0 (5.0-7.0) 04/06/17 12:44 Ur Specific [place] 1.012 (1.003-1.030) 04/06/17 12:44 Urine Protein 100 mg/dl mg/dL (Negative) 04/06/17 12:44 Urine Glucose (UA) 50 mg/dL (Negative) 04/06/17 12:44 Urine Ketones Neg mg/dL (Negative) 04/06/17 12:44 Urine Blood Lg (Negative) 04/06/17 12:44 Urine Nitrite Neg (Negative) 04/06/17 12:44 Urine Bilirubin Neg (Negative) 04/06/17 12:44 Urine Urobilinogen < 2.0 mg/dL (<2.0) 04/06/17 12:44 Ur Leukocyte Esterase Mod (Negative) 04/06/17 12:44 Urine WBC (Auto) > 182.0 /HPF (0.0-6.0) H 04/06/17 12:44 Urine RBC (Auto) > 182.0 /HPF (0.0-6.0) 04/06/17 12:44 U Epithel Cells (Auto) 1.0 /HPF (0-13.0) 04/06/17 09:00 Urine Bacteria (Auto) 2+ /HPF (Negative) 04/06/17 12:44 Urine WBC Clumps 3+ /HPF 04/06/17 12:44 Urine Mucus 1+ /HPF 04/06/17 12:44 Urine Creatinine 87.4 mg/dL (0.1-20.0) H 04/06/17 12:44 Urine Sodium 73 mEq/L 04/06/17 12:44 Urine Total Protein 589 mg/dL (5-11.8) H 04/06/17 12:44 Urine Opiates Screen Presumptive negative 04/05/17 16:36 Urine Methadone Screen Presumptive negative 04/05/17 16:36 Ur Barbiturates Screen Presumptive negative 04/05/17 16:36 Ur Phencyclidine Scrn Presumptive negative 04/05/17 16:36 Ur Amphetamines Screen Presumptive positive 04/05/17 16:36 U Benzodiazepines Scrn Presumptive negative 04/05/17 16:36 Urine Cocaine Screen Presumptive positive 04/05/17 16:36 U Marijuana (THC) Screen Presumptive negative 04/05/17 16:36 Drugs of Abuse Note Disclamer 04/05/17 16:36 Plasma/Serum Alcohol < 0.01 gm% (0-0.07) 04/05/17 16:36 Immunofix Electrophor see below 04/06/17 20:24 BRE Screen Negative (Negative) 04/07/17 14:49 Proteinase 3 (PR3) Ab <1.0 AI (<1.0) 04/07/17 14:49 Myeloperoxidase Ab <1.0 AI (<1.0) 04/07/17 14:49 Hepatitis A IgM Ab Non-reactive (NonReactive) 04/06/17 20:24 Hep Bs Antigen Non-reactive (Negative) 04/06/17 20:24 Hep B Core IgM Ab Non-reactive (NonReactive) 04/06/17 20:24 Hepatitis C Antibody Non-reactive (NonReactive) 04/06/17 20:24 HIV 1&2 Antibody Rapid Non react (Non React) 04/10/17 13:21 HIV P24 Antigen Non react (Non React) 04/10/17 13:21
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
[2017-04-13] MEDS: NORVASC PO SCH (11:36)
[2017-04-13] MEDS: PEPCID PO SCH (11:37)
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
[2017-04-13] MEDS ORDERED: MORPHINE IV PRN (13:23)
[2017-04-13] MEDS: CLEOCIN 600 MG/50 mL 600 MG/50 ML BAG IV SCH ×2 (14:40→22:06)
[2017-04-13] MEDS: PERCOCET 5/325 PO PRN ×2 (14:41→20:56)
[2017-04-13 15:11] LABS: INR 1.05 (0.87-1.13); Partial Thromboplastin Time 35.7 Sec. (24.2-36.6)
[2017-04-13] MEDS: ROCEPHIN/NS 2 GM/100 ML 2 GM/100 ML BAG IV SCH (18:07)
[2017-04-13] MEDS: TYLENOL PO PRN (18:08)
[2017-04-13] MEDS: LOVENOX SUB-Q SCH (21:03)
[2017-04-14] MEDS: ROCEPHIN/NS 2 GM/100 ML 2 GM/100 ML BAG IV SCH ×2 (05:45→17:13)
[2017-04-14 05:52] LABS: BUN/Creatinine Ratio 6.42; Calcium 8.5 mg/dL (8.4-10.2); Chloride 98.1 mmol/L (98-107); Potassium 5.5 mmol/L (3.6-5.0)
[2017-04-14] MEDS: CLEOCIN 600 MG/50 mL 600 MG/50 ML BAG IV SCH (06:33)
[2017-04-14] MEDS: NORMODYNE PO SCH ×2 (08:18→16:26)
--- NOTE | 2017-04-14 08:28 | Progress Note ---
Assessment and Plan Assessment: * Nonoliguric acute kidney injury attributed to ATN vs other * Polysubstance abuse * Hypertension * Rhabdomyolysis, mild - resolved * Proteinuria * Schizoaffective DO * Chronic NSAID use * Persistent low grade fever Plan: * Hemodialysis today * ID following, recommendations reviewed - okay to use Vanco from renal standpoint - renal dosing per pharmacy * Will require renal bx in future if his renal function fails to improve * Continue antiHTN medications * Empiric abx per primary team * Avoid potential nephrotoxins * Dose medications for renal function * Strict I/O * Psychiatry following Subjective Date of service: 04/14/17 Interval history: Patient off the floor at time of visit. Objective - Vital Signs Vital signs: Vital Signs - 12hr 04/13/17 04/13/17 04/14/17 20:56 23:25 04:36 Temperature 98.6 F Pulse Rate 65 Respiratory 21 18 20 Rate Blood Pressure 136/90 Blood Pressure [Left] O2 Sat by Pulse 94 Oximetry 04/14/17 04/14/17 07:45 08:18 Temperature 98.2 F Pulse Rate 70 70 Respiratory 18 Rate Blood Pressure 169/109 Blood Pressure 169/109 [Left] O2 Sat by Pulse 94 Oximetry - Lab 04/13/17 05:45 04/15/17 05:59 Most recent lab results Calcium 8.5 mg/dL (8.4-10.2) 04/14/17 04:58 Urine Creatinine 87.4 mg/dL (0.1-20.0) H 04/06/17 12:44 Urine Sodium 73 mEq/L 04/06/17 12:44 Urine Total Protein 589 mg/dL (5-11.8) H 04/06/17 12:44
--- NOTE | 2017-04-14 08:49 | XRay Report ---
AP lateral lumbar spine. History: Low back pain after trauma. Findings: There are no fractures or other acute findings. An anterior fusion has been performed at L5-S1. The disc spacer and the orthopedic screws are in good position. Alignment is normal. The pedicles are intact. Impression: Postoperative changes at L5-S1. No acute findings.
--- NOTE | 2017-04-14 09:13 | Progress Note ---
Assessment and Plan Assessment: 1) Sepsis: improving. Etiology - unclear ? UTI ? meningitis ? endocarditis ? viral -HIV and BRE negative -CRP=5.1 -C3/C4 normal 2) UTI: initial UA was negative. Repeat positive. Urine cx negative -CT abd showed moderate to severe sixto perinephric stranding 3) Headache / AMS ? should r/o meningitis 4) Mutidrug abuse +cocaine +meth 5) Bilateral foot pustular rash ? embolic 6) JULIA-worsening on HD 7) Abdominal pain ? -Viral hepatitis negative -CT abd showed moderate to severe sixto perinephric stranding Plan: -follow-up repeat blood cultures -follow-up procalcitonin -TTE pending -lumbar puncture - pending -RPR - pending -stop clindamycin IV -start vancomycin renally dosed - pt now on HD -continue ceftriaxone 2 g IV q 12h until meningitis is r/o Thank you Dr Guadalupe for your consultation, will follow up with you. Shirley Malloy MD Infectious Diseases Specialist [facility] ([facility]) M [phone] O [phone] Subjective Date of service: 04/14/17 Principal diagnosis: SIRS Interval history: Feels some better, headache is improving 12/26. Tmax 100.1. Started on vancomycin IV. Still c/o abdominal pain 02/25 Current Antimicrobials: clindamycin 04/13 ceftraixone 04/13 Previous Antimicrobials: levaquin 04/10 Microbiology: Blood cultures: 04/05 ngtd 04/13 ngtd Urine cultures: 04/05 neg 04/11 neg Objective - Exam Narrative Exam: General appearance: Alert in NAD, conversant Eyes: anicteric sclerae, moist conjunctivae; no lid-lag; PERRLA HENT: Atraumatic; oropharynx clear with moist mucous membranes and no mucosal ulcerations/no oral thrush; normal hard and soft palate. Normal external ears. Neck: Trachea midline; supple, no thyromegaly or lymphadenopathy Lungs: CTA, with normal respiratory effort and no intercostal retractions CV: RRR, no murmurs Abdomen: Soft, +diffuse tenderness sixto Extremities: No peripheral edema or extremity lymphadenopathy Skin: sixto foot pustular rash and sixto sole desquamation Psych: Appropriate affect, alert and oriented to person, place and time. Neuro: alert and oriented x 3. Moving all extermities Lines: No CVL / PICC - Constitutional Vitals: Vital Signs Temp Pulse Resp BP Pulse Ox 98.2 F 70 18 169/109 94 04/14/17 07:45 04/14/17 08:18 04/14/17 07:45 04/14/17 08:18 04/14/17 07:45 Temperature -Last 24 Hours Temperature 98.2 F Temperature 98.2 F Temperature 98.6 F Temperature 100.5 F - Labs CBC & Chem 7: 04/13/17 05:45 04/14/17 04:58 Labs: Abnormal lab results 04/13/17 04/13/17 04/14/17 Range/Units 08:43 14:29 04:58 Potassium 5.7 H 5.5 H (3.6-5.0) mmol/L BUN 42 H 54 H (9-20) mg/dL Creatinine 6.5 H 8.4 H (0.8-1.5) mg/dL Glucose 113 H 103 H (75-100) mg/dL Calcium 8.3 L (8.4-10.2) mg/dL C-Reactive Protein 5.10 H (0.00-1.30) mg/dL
[2017-04-14] MEDS ORDERED: VANCOMYCIN VIAL 1,000 MG in NACL 0.9% 100 ML IV SCH (10:00)
[2017-04-14] MEDS ORDERED: VANCOMYCIN PHARMACY TO DOSE IV SCH (10:00)
[2017-04-14] MEDS ORDERED: KIONEX PO ONE (10:15)
--- NOTE | 2017-04-14 10:49 | Fluoroscopy Report ---
Lumbar puncture with fluoroscopic guidance. History: Fever, altered mental status, evaluate for meningitis. Procedure and findings: The patient's skin surface overlying the lumbar region was prepped and draped using sterile technique. Local anesthetic was injected into the skin. Using fluoroscopic guidance, a 20-gauge spinal needle was advanced into the subarachnoid space at the L3-4 level. The opening pressure is increased at 25 cm of water. The tap was atraumatic. Approximately 18 cc of clear CSF was collected and sent to laboratory for appropriate studies ordered by the referring physician. The patient tolerated the procedure well clinically and sent to the floor as an inpatient in satisfactory condition. There were no complications.
[2017-04-14 11:03] LABS: Appearance,CSF Clear; CSF Diff Status Complete; White Blood Cell,CSF 20 /mm3 (1-10)
[2017-04-14] MEDS ORDERED: NACL 0.9 (PRIMING MACHINE ONLY DIALYSIS) MC ONE (11:03)
[2017-04-14] MEDS: PERCOCET 5/325 PO PRN ×2 (11:04→21:58)
[2017-04-14 12:16] LABS: Glucose,CSF 54 mg/dL
[2017-04-14] MEDS ORDERED: VANCOMYCIN 1,500 MG in NACL 0.9% 500 ML 500 ML IV ONE (14:00)
[2017-04-14] MEDS ORDERED: VANCOMYCIN 2,000 MG in NACL 0.9% 500 ML 500 ML IV ONE (14:00)
[2017-04-14] MEDS: PEPCID PO SCH (16:26)
[2017-04-14] MEDS: NORVASC PO SCH (16:26)
[2017-04-14] MEDS: HEPARIN IV PRN (16:38)
[2017-04-14] MEDS: TYLENOL PO PRN (16:40)
[2017-04-14] MEDS: BENADRYL IV PRN (16:55)
--- NOTE | 2017-04-14 17:20 | Progress Note ---
Assessment and Plan Assessment and plan: --Sepsis. Persistent fever, Blood cultures are negative. Continued IV antibiotics. Leukocytosis improved patient still with low-grade fever. ID following s/p LP today, f/u CSF analysis Echocardiogram; ejection fraction 50-55%, no evidence of endocarditis Continue vancomycin and Rocephin per ID --Severe back pain; patient reports back surgery lumbosacral spine x-ray changes, postoperative findings noted , --Acute renal failure/ATN. Etiology is likely secondary to acute kidney injury/ ATN from sepsis as well as rhabdomyolysis. Nephrology following --Acute renal failure: Hemodialysis as needed per nephrology --Hyperkalemia. Management per nephrology --Rhabdomyolysis. CK has normalized. --Substance abuse; cocaine and amphetamines, counseling done patient strongly advised which occasional drug use --Hypernatremia. Resolved. --UTI. Continue IV antibiotics. Urine and blood cultures are negative. CT scan of the abdomen and pelvis revealed perinephric stranding. --Toxic metabolic Encephalopathy. Resolved --Abdominal pain. CT scan of the abdomen and pelvis showing no acute intra- abdominal pathology. --Accelerated hypertension. Increase Labetalol. --Schizoaffective disorder/substance-induced psychosis. Psychiatry following. -- DVT prophylaxis; Lovenox renal dose Plan of care discussed with the patient and the family member at the bedside History Interval history: Patient underwent lumbar puncture today as requested by infectious diseases Analysis pending, Received hemodialysis No new complaints Persistent low-grade fever, T max 100.1 Hospitalist Physical - Constitutional Vitals: Temp Pulse Resp BP Pulse Ox 100.1 F H 67 18 153/80 94 04/14/17 16:04 04/14/17 16:26 04/14/17 16:04 04/14/17 16:26 04/14/17 16:04 General appearance: Present: no acute distress, well-nourished, obese - EENT Eyes: Present: PERRL, EOM intact - Neck Neck: Present: supple, normal ROM - Respiratory Respiratory effort: normal Respiratory: bilateral: diminished, negative: rales, rhonchi, wheezing - Cardiovascular Rhythm: regular Heart Sounds: Present: S1 & S2 - Extremities Extremities: no ischemia, No edema Peripheral Pulses: within normal limits - Abdominal General gastrointestinal: soft, non-tender, non-distended, normal bowel sounds - Integumentary Integumentary: Present: clear, warm - Psychiatric Psychiatric: appropriate mood/affect, cooperative - Neurologic Neurologic: CNII-XII intact, moves all extremities Results - Labs CBC & Chem 7: 04/13/17 05:45 04/14/17 04:58 Labs: Laboratory Last Values WBC 8.7 K/mm3 (4.5-11.0) 04/13/17 05:45 RBC 2.71 M/mm3 (3.65-5.03) L 04/13/17 05:45 Hgb 9.0 gm/dl (11.8-15.2) L 04/13/17 05:45 Hct 26.0 % (35.5-45.6) L 04/13/17 05:45 MCV 96 fl (84-94) H 04/13/17 05:45 MCH 33 pg (28-32) H 04/13/17 05:45 MCHC 35 % (32-34) H 04/13/17 05:45 RDW 12.7 % (13.2-15.2) L 04/13/17 05:45 Plt Count 173 K/mm3 (140-440) 04/13/17 05:45 Lymph % (Auto) 10.6 % (13.4-35.0) L 04/13/17 05:45 [place] % (Auto) 11.5 % (0.0-7.3) H 04/13/17 05:45 Eos % (Auto) 2.2 % (0.0-4.3) 04/13/17 05:45 Baso % (Auto) 0.5 % (0.0-1.8) 04/13/17 05:45 Lymph # 0.9 K/mm3 (1.2-5.4) L 04/13/17 05:45 [place] # 1.0 K/mm3 (0.0-0.8) H 04/13/17 05:45 Eos # 0.2 K/mm3 (0.0-0.4) 04/13/17 05:45 Baso # 0.0 K/mm3 (0.0-0.1) 04/13/17 05:45 Seg Neutrophils % 75.2 % (40.0-70.0) H 04/13/17 05:45 Seg Neutrophils # 6.5 K/mm3 (1.8-7.7) 04/13/17 05:45 PT 13.6 Sec. (12.2-14.9) 04/13/17 14:29 INR 1.05 (0.87-1.13) 04/13/17 14:29 APTT 35.7 Sec. (24.2-36.6) 04/13/17 14:29 POC ABG pH 7.325 (7.35-7.45) L 04/05/17 17:59 POC ABG pCO2 34.2 (35-45) L 04/05/17 17:59 POC ABG pO2 132 (80-105) H 04/05/17 17:59 POC ABG HCO3 17.8 04/05/17 17:59 POC ABG Total CO2 19 04/05/17 17:59 POC ABG O2 Sat 99 04/05/17 17:59 POC ABG Base Excess -8 04/05/17 17:59 VBG pH 7.186 (7.320-7.420) L* 04/05/17 16:36 FiO2 28 % 04/05/17 17:59 Sodium 137 mmol/L (137-145) 04/14/17 04:58 Potassium 5.5 mmol/L (3.6-5.0) H 04/14/17 04:58 Chloride 98.1 mmol/L (98-107) 04/14/17 04:58 Carbon Dioxide 23 mmol/L (22-30) 04/14/17 04:58 Anion Gap 21 mmol/L 04/14/17 04:58 BUN 54 mg/dL (9-20) H 04/14/17 04:58 Creatinine 8.4 mg/dL (0.8-1.5) H 04/14/17 04:58 Estimated GFR 8 ml/min 04/14/17 04:58 BUN/Creatinine Ratio 6.42 % 04/14/17 04:58 Glucose 103 mg/dL (75-100) H 04/14/17 04:58 POC Glucose 130 (70-105) H 04/05/17 16:55 Osmolality 308 Mosm/kg 04/06/17 20:24 Lactic Acid 2.00 mmol/L (0.7-2.0) 04/07/17 08:03 Uric Acid 9.2 mg/dL (3.5-7.6) H 04/07/17 08:02 Calcium 8.5 mg/dL (8.4-10.2) 04/14/17 04:58 Ionized Calcium 4.5 mg/dL (4.8-5.6) L 04/07/17 14:49 Total Bilirubin 1.20 mg/dL (0.1-1.2) 04/06/17 11:02 AST 160 units/L (5-40) H 04/06/17 11:02 ALT 48 units/L (7-56) 04/06/17 11:02 Alkaline Phosphatase 59 units/L (35-129) 04/06/17 11:02 Ammonia 76.0 umol/L (25-60) H 04/05/17 17:41 Total Creatine Kinase 145 units/L (55-170) 04/07/17 08:02 CK-MB (CK-2) 7.6 ng/mL (0.0-4.0) H 04/05/17 16:36 CK-MB (CK-2) Rel Index 0.6 (0-4) 04/05/17 16:36 Troponin T < 0.010 ng/mL (0.00-0.029) 04/08/17 01:43 C-Reactive Protein 5.10 mg/dL (0.00-1.30) H 04/13/17 14:29 Total Protein 6.1 g/dL (6.3-8.2) L D 04/06/17 11:02 Albumin 3.6 g/dL (3.9-5) L 04/06/17 11:02 Albumin/Globulin Ratio 1.4 % 04/06/17 11:02 TSH 1.700 mlU/mL (0.270-4.200) 04/05/17 16:36 Free T4 0.82 ng/dL (0.76-1.46) 04/05/17 16:36 Urine Color Red (Yellow) 04/06/17 12:44 Urine Turbidity Cloudy (Clear) 04/06/17 12:44 Urine pH 6.0 (5.0-7.0) 04/06/17 12:44 Ur Specific [place] 1.012 (1.003-1.030) 04/06/17 12:44 Urine Protein 100 mg/dl mg/dL (Negative) 04/06/17 12:44 Urine Glucose (UA) 50 mg/dL (Negative) 04/06/17 12:44 Urine Ketones Neg mg/dL (Negative) 04/06/17 12:44 Urine Blood Lg (Negative) 04/06/17 12:44 Urine Nitrite Neg (Negative) 04/06/17 12:44 Urine Bilirubin Neg (Negative) 04/06/17 12:44 Urine Urobilinogen < 2.0 mg/dL (<2.0) 04/06/17 12:44 Ur Leukocyte Esterase Mod (Negative) 04/06/17 12:44 Urine WBC (Auto) > 182.0 /HPF (0.0-6.0) H 04/06/17 12:44 Urine RBC (Auto) > 182.0 /HPF (0.0-6.0) 04/06/17 12:44 U Epithel Cells (Auto) 1.0 /HPF (0-13.0) 04/06/17 09:00 Urine Bacteria (Auto) 2+ /HPF (Negative) 04/06/17 12:44 Urine WBC Clumps 3+ /HPF 04/06/17 12:44 Urine Mucus 1+ /HPF 04/06/17 12:44 Urine Creatinine 87.4 mg/dL (0.1-20.0) H 04/06/17 12:44 Urine Sodium 73 mEq/L 04/06/17 12:44 Urine Total Protein 589 mg/dL (5-11.8) H 04/06/17 12:44 CSF Appearance Clear 04/13/17 Unknown CSF Color Colorless 04/13/17 Unknown CSF WBC 20 /mm3 (1-10) 04/13/17 Unknown CSF RBC 120 /mm3 (0-0) 04/13/17 Unknown CSF Comment No cells seen 04/13/17 Unknown CSF Pathologist Review C 04/13/17 Unknown CSF Glucose 54 mg/dL 04/13/17 Unknown CSF Total Protein 32 mg/dL 04/13/17 Unknown Urine Opiates Screen Presumptive negative 04/05/17 16:36 Urine Methadone Screen Presumptive negative 04/05/17 16:36 Ur Barbiturates Screen Presumptive negative 04/05/17 16:36 Ur Phencyclidine Scrn Presumptive negative 04/05/17 16:36 Ur Amphetamines Screen Presumptive positive 04/05/17 16:36 U Benzodiazepines Scrn Presumptive negative 04/05/17 16:36 Urine Cocaine Screen Presumptive positive 04/05/17 16:36 U Marijuana (THC) Screen Presumptive negative 04/05/17 16:36 Drugs of Abuse Note Disclamer 04/05/17 16:36 Plasma/Serum Alcohol < 0.01 gm% (0-0.07) 04/05/17 16:36 Immunofix Electrophor see below 04/06/17 20:24 BRE Screen Negative (Negative) 04/07/17 14:49 Proteinase 3 (PR3) Ab <1.0 AI (<1.0) 04/07/17 14:49 Myeloperoxidase Ab <1.0 AI (<1.0) 04/07/17 14:49 Complement C3 125 mg/dL (90-180) 04/10/17 11:35 Complement C4 30 mg/dL (16-47) 04/10/17 11:35 Hepatitis A IgM Ab Non-reactive (NonReactive) 04/06/17 20:24 Hep Bs Antigen Non-reactive (Negative) 04/06/17 20:24 Hep B Core IgM Ab Non-reactive (NonReactive) 04/06/17 20:24 Hepatitis C Antibody Non-reactive (NonReactive) 04/06/17 20:24 HIV 1&2 Antibody Rapid Non react (Non React) 04/10/17 13:21 HIV P24 Antigen Non react (Non React) 04/10/17 13:21
[2017-04-14] MEDS ORDERED: MORPHINE IV PRN (19:05)
[2017-04-14] MEDS: MORPHINE IV PRN (19:31)
[2017-04-14] MEDS: LOVENOX SUB-Q SCH (21:17)
[2017-04-15] MEDS: BENADRYL IV PRN ×2 (00:40→18:28)
[2017-04-15] MEDS: NORMODYNE PO SCH ×4 (00:41→20:07)
[2017-04-15 06:35] LABS: BUN/Creatinine Ratio 6.92; Calcium 8.4 mg/dL (8.4-10.2); Chloride 99.1 mmol/L (98-107)
[2017-04-15] MEDS: ROCEPHIN/NS 2 GM/100 ML 2 GM/100 ML BAG IV SCH (07:02)
[2017-04-15] MEDS: MORPHINE IV PRN ×3 (07:02→23:51)
--- NOTE | 2017-04-15 08:45 | Progress Note ---
Assessment and Plan Assessment: * Nonoliguric acute kidney injury attributed to ATN vs other --Work up negative to date - ANCA, C3/C4, HIV, Hepatitis, SPEP * Polysubstance abuse * Hypertension * Rhabdomyolysis, mild - resolved * Proteinuria * Schizoaffective DO * Chronic NSAID use * Persistent low grade fever Plan: * Hemodialysis MWF * ID following, recommendations reviewed * Would benefit from renal bx in future if his renal function fails to improve * Continue antiHTN medications * Empiric abx per ID * Avoid potential nephrotoxins * Dose medications for renal function * Strict I/O * Psychiatry following Subjective Date of service: 04/15/17 Principal diagnosis: SIRS Interval history: Patient is s/p LP yesterday. He is requesting more food - reports good appetite. Complains of back pain. Objective - Vital Signs Vital signs: Vital Signs - 12hr 04/14/17 04/15/17 04/15/17 21:35 00:10 04:25 Temperature 99.2 F 98.5 F 99.3 F Pulse Rate 74 69 74 Respiratory 17 18 18 Rate Blood Pressure 134/84 133/80 140/87 O2 Sat by Pulse 94 94 94 Oximetry 04/15/17 04/15/17 07:23 08:35 Temperature 98.9 F Pulse Rate 71 71 Respiratory 16 Rate Blood Pressure 154/93 150/80 O2 Sat by Pulse 97 Oximetry - General Appearance General appearance: well-developed, well-nourished EENT: ATNC Respiratory: Present: Clear to Ascultation Cardiology: regular, S1S2 Gastrointestinal: normal, no tenderness, no distended Integumentary: no rash Musculoskeletal: other (no edema) Psychiatric: cooperative - Lab 04/13/17 05:45 04/15/17 05:59 Most recent lab results Calcium 8.4 mg/dL (8.4-10.2) 04/15/17 05:59 Urine Creatinine 87.4 mg/dL (0.1-20.0) H 04/06/17 12:44 Urine Sodium 73 mEq/L 04/06/17 12:44 Urine Total Protein 589 mg/dL (5-11.8) H 04/06/17 12:44
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
[2017-04-15] MEDS: NORVASC PO SCH (11:14)
[2017-04-15] MEDS: PEPCID PO SCH (11:14)
--- NOTE | 2017-04-15 13:40 | Progress Note ---
Assessment and Plan Assessment: 1) Sepsis: improving, still low grade fever. Etiology - unclear ? UTI ? viral -HIV and BRE negative -CRP=5.1 -C3/C4 normal -CSF with 20 wbc but hemorragic, protein and glucose normal, not consistent with meningitis 2) UTI: initial UA was negative. Repeat positive. Urine cx negative -CT abd showed moderate to severe [place]xt[place] perinephric stranding 3) Headache / AMS - resolved 4) Polysubstance abuse +cocaine +meth 5) Bilateral foot pustular rash ? traumatic lesions infected 6) JULIA-worsening on HD 7) Abdominal pain ? -Viral hepatitis negative -CT abd showed moderate to severe [place]xt[place] perinephric stranding Plan: -check CMV / EBV serology r/o mono -follow-up repeat blood cultures -follow-up procalcitonin -RPR - pending -continue vancomycin renally dosed -continue ceftriaxone 1 g IV q day -add doxycycline in view of febrile illness and thrombocytopenia ? tick bite realted infection and pustular rash -upon discharge will do doxycycline 100 mg po q12h and cipro 500 mg po q48h total 10 days to cover feet pustules and UTI Thank you Dr Guadalupe for your consultation, will follow up with you. Shirley Malloy MD Infectious Diseases Specialist [facility] M [phone] O [phone] Subjective Date of service: 04/15/17 Principal diagnosis: Sepsis Syndrome; Chest Pains; Bilateral Rib Fractures Interval history: Feels better, headache resolved. Tmax 100.1. Still c/o abdominal pain 12/26 Current Antimicrobials: vanco 04/14 ceftriaxone 04/13 Previous Antimicrobials: levaquin 04/10 clindamycin 04/13 Microbiology: Blood cultures: 04/05 ngtd 04/13 ngtd Urine cultures: 04/05 neg 04/11 neg CSF 04/13 neg Objective - Exam Narrative Exam: General appearance: Alert in NAD, conversant Eyes: anicteric sclerae, moist conjunctivae; no lid-lag; PERRLA HENT: Atraumatic; oropharynx clear with moist mucous membranes and no mucosal ulcerations/no oral thrush; normal hard and soft palate. Normal external ears. Neck: Trachea midline; supple, no thyromegaly or lymphadenopathy Lungs: CTA, with normal respiratory effort and no intercostal retractions CV: RRR, no murmurs Abdomen: Soft, +diffuse tenderness sixto Extremities: No peripheral edema or extremity lymphadenopathy Skin: sixto foot pustular rash and sixto sole desquamation Psych: Appropriate affect, alert and oriented to person, place and time. Neuro: alert and oriented x 3. Moving all extermities Lines: No CVL / PICC - Constitutional Vitals: Vital Signs Temp Pulse Resp BP Pulse Ox 98.9 F 96 H 16 135/83 97 04/15/17 07:23 04/15/17 11:14 04/15/17 07:23 04/15/17 11:14 04/15/17 07:23 Temperature -Last 24 Hours Temperature 98.9 F Temperature 99.3 F Temperature 98.5 F Temperature 99.2 F Temperature 100.1 F Temperature 99.5 F - Labs CBC & Chem 7: 04/13/17 05:45 04/15/17 05:59 Labs: Abnormal lab results 04/15/17 Range/Units 05:59 BUN 45 H (9-20) mg/dL Creatinine 6.5 H (0.8-1.5) mg/dL Glucose 111 H (75-100) mg/dL
[2017-04-15] MEDS: ROCEPHIN/NS 1 GM/50 ML 1 GM/50 ML BAG IV SCH (14:22)
[2017-04-15] MEDS: DOXYCYCLINE HYCLATE 100 MG in NACL 0.9% 250ML 250 ML IV SCH (16:46)
[2017-04-15] MEDS: PERCOCET 5/325 PO PRN (18:23)
[2017-04-15] MEDS: PROVENTIL IH PRN (18:44)
--- NOTE | 2017-04-15 20:35 | Progress Note ---
Assessment and Plan Assessment and plan: --Sepsis. Persistent fever, Blood cultures are negative. Continued IV antibiotics. Leukocytosis improved patient still with low-grade fever. ID following s/p LP today, f/u CSF analysis Echocardiogram; ejection fraction 50-55%, no evidence of endocarditis Continue vancomycin and Rocephin per ID --Severe back pain; patient reports back surgery lumbosacral spine x-ray changes, postoperative findings noted , --Acute renal failure/ATN. Etiology is likely secondary to acute kidney injury/ ATN from sepsis as well as rhabdomyolysis. Nephrology following --Acute renal failure: Hemodialysis as needed per nephrology --Hyperkalemia. Management per nephrology --Rhabdomyolysis. CK has normalized. --Substance abuse; cocaine and amphetamines, counseling done patient strongly advised which occasional drug use --Hypernatremia. Resolved. --UTI. Continue IV antibiotics. Urine and blood cultures are negative. CT scan of the abdomen and pelvis revealed perinephric stranding. --Toxic metabolic Encephalopathy. Resolved --Abdominal pain. CT scan of the abdomen and pelvis showing no acute intra- abdominal pathology. --Accelerated hypertension. Increase Labetalol. --Schizoaffective disorder/substance-induced psychosis. Psychiatry following. -- DVT prophylaxis; Lovenox renal dose Plan of care discussed with the patient and the family member at the bedside History Interval history: Patient feels slightly better No new complaints Vital signs reviewed Hospitalist Physical - Constitutional Vitals: Temp Pulse Resp BP Pulse Ox 99.0 F 81 18 146/94 96 04/15/17 16:25 04/15/17 18:54 04/15/17 18:54 04/15/17 16:25 04/15/17 16:25 General appearance: Present: no acute distress, well-nourished, obese - EENT Eyes: Present: PERRL, EOM intact - Neck Neck: Present: supple, normal ROM - Respiratory Respiratory effort: normal Respiratory: negative: rales, rhonchi, wheezing - Cardiovascular Rhythm: regular Heart Sounds: Present: S1 & S2 - Extremities Extremities: no ischemia, No edema - Abdominal General gastrointestinal: soft, non-tender, non-distended, normal bowel sounds - Integumentary Integumentary: Present: clear, warm - Psychiatric Psychiatric: appropriate mood/affect, cooperative - Neurologic Neurologic: CNII-XII intact, moves all extremities Results - Labs CBC & Chem 7: 04/13/17 05:45 04/15/17 05:59 Labs: Laboratory Last Values WBC 8.7 K/mm3 (4.5-11.0) 04/13/17 05:45 RBC 2.71 M/mm3 (3.65-5.03) L 04/13/17 05:45 Hgb 9.0 gm/dl (11.8-15.2) L 04/13/17 05:45 Hct 26.0 % (35.5-45.6) L 04/13/17 05:45 MCV 96 fl (84-94) H 04/13/17 05:45 MCH 33 pg (28-32) H 04/13/17 05:45 MCHC 35 % (32-34) H 04/13/17 05:45 RDW 12.7 % (13.2-15.2) L 04/13/17 05:45 Plt Count 173 K/mm3 (140-440) 04/13/17 05:45 Lymph % (Auto) 10.6 % (13.4-35.0) L 04/13/17 05:45 [place] % (Auto) 11.5 % (0.0-7.3) H 04/13/17 05:45 Eos % (Auto) 2.2 % (0.0-4.3) 04/13/17 05:45 Baso % (Auto) 0.5 % (0.0-1.8) 04/13/17 05:45 Lymph # 0.9 K/mm3 (1.2-5.4) L 04/13/17 05:45 [place] # 1.0 K/mm3 (0.0-0.8) H 04/13/17 05:45 Eos # 0.2 K/mm3 (0.0-0.4) 04/13/17 05:45 Baso # 0.0 K/mm3 (0.0-0.1) 04/13/17 05:45 Seg Neutrophils % 75.2 % (40.0-70.0) H 04/13/17 05:45 Seg Neutrophils # 6.5 K/mm3 (1.8-7.7) 04/13/17 05:45 PT 13.6 Sec. (12.2-14.9) 04/13/17 14:29 INR 1.05 (0.87-1.13) 04/13/17 14:29 APTT 35.7 Sec. (24.2-36.6) 04/13/17 14:29 POC ABG pH 7.325 (7.35-7.45) L 04/05/17 17:59 POC ABG pCO2 34.2 (35-45) L 04/05/17 17:59 POC ABG pO2 132 (80-105) H 04/05/17 17:59 POC ABG HCO3 17.8 04/05/17 17:59 POC ABG Total CO2 19 04/05/17 17:59 POC ABG O2 Sat 99 04/05/17 17:59 POC ABG Base Excess -8 04/05/17 17:59 VBG pH 7.186 (7.320-7.420) L* 04/05/17 16:36 FiO2 28 % 04/05/17 17:59 Sodium 140 mmol/L (137-145) 04/15/17 05:59 Potassium 5.0 mmol/L (3.6-5.0) 04/15/17 05:59 Chloride 99.1 mmol/L (98-107) 04/15/17 05:59 Carbon Dioxide 27 mmol/L (22-30) 04/15/17 05:59 Anion Gap 19 mmol/L 04/15/17 05:59 BUN 45 mg/dL (9-20) H 04/15/17 05:59 Creatinine 6.5 mg/dL (0.8-1.5) H 04/15/17 05:59 Estimated GFR 11 ml/min 04/15/17 05:59 BUN/Creatinine Ratio 6.92 % 04/15/17 05:59 Glucose 111 mg/dL (75-100) H 04/15/17 05:59 POC Glucose 130 (70-105) H 04/05/17 16:55 Osmolality 308 Mosm/kg 04/06/17 20:24 Lactic Acid 2.00 mmol/L (0.7-2.0) 04/07/17 08:03 Uric Acid 9.2 mg/dL (3.5-7.6) H 04/07/17 08:02 Calcium 8.4 mg/dL (8.4-10.2) 04/15/17 05:59 Ionized Calcium 4.5 mg/dL (4.8-5.6) L 04/07/17 14:49 Total Bilirubin 1.20 mg/dL (0.1-1.2) 04/06/17 11:02 AST 160 units/L (5-40) H 04/06/17 11:02 ALT 48 units/L (7-56) 04/06/17 11:02 Alkaline Phosphatase 59 units/L (35-129) 04/06/17 11:02 Ammonia 76.0 umol/L (25-60) H 04/05/17 17:41 Total Creatine Kinase 145 units/L (55-170) 04/07/17 08:02 CK-MB (CK-2) 7.6 ng/mL (0.0-4.0) H 04/05/17 16:36 CK-MB (CK-2) Rel Index 0.6 (0-4) 04/05/17 16:36 Troponin T < 0.010 ng/mL (0.00-0.029) 04/08/17 01:43 C-Reactive Protein 5.10 mg/dL (0.00-1.30) H 04/13/17 14:29 Total Protein 6.1 g/dL (6.3-8.2) L D 04/06/17 11:02 Albumin 3.6 g/dL (3.9-5) L 04/06/17 11:02 Albumin/Globulin Ratio 1.4 % 04/06/17 11:02 TSH 1.700 mlU/mL (0.270-4.200) 04/05/17 16:36 Free T4 0.82 ng/dL (0.76-1.46) 04/05/17 16:36 Urine Color Red (Yellow) 04/06/17 12:44 Urine Turbidity Cloudy (Clear) 04/06/17 12:44 Urine pH 6.0 (5.0-7.0) 04/06/17 12:44 Ur Specific [place] 1.012 (1.003-1.030) 04/06/17 12:44 Urine Protein 100 mg/dl mg/dL (Negative) 04/06/17 12:44 Urine Glucose (UA) 50 mg/dL (Negative) 04/06/17 12:44 Urine Ketones Neg mg/dL (Negative) 04/06/17 12:44 Urine Blood Lg (Negative) 04/06/17 12:44 Urine Nitrite Neg (Negative) 04/06/17 12:44 Urine Bilirubin Neg (Negative) 04/06/17 12:44 Urine Urobilinogen < 2.0 mg/dL (<2.0) 04/06/17 12:44 Ur Leukocyte Esterase Mod (Negative) 04/06/17 12:44 Urine WBC (Auto) > 182.0 /HPF (0.0-6.0) H 04/06/17 12:44 Urine RBC (Auto) > 182.0 /HPF (0.0-6.0) 04/06/17 12:44 U Epithel Cells (Auto) 1.0 /HPF (0-13.0) 04/06/17 09:00 Urine Bacteria (Auto) 2+ /HPF (Negative) 04/06/17 12:44 Urine WBC Clumps 3+ /HPF 04/06/17 12:44 Urine Mucus 1+ /HPF 04/06/17 12:44 Urine Creatinine 87.4 mg/dL (0.1-20.0) H 04/06/17 12:44 Urine Sodium 73 mEq/L 04/06/17 12:44 Urine Total Protein 589 mg/dL (5-11.8) H 04/06/17 12:44 CSF Appearance Clear 04/13/17 Unknown CSF Color Colorless 04/13/17 Unknown CSF WBC 20 /mm3 (1-10) 04/13/17 Unknown CSF RBC 120 /mm3 (0-0) 04/13/17 Unknown CSF Comment No cells seen 04/13/17 Unknown CSF Pathologist Review C 04/13/17 Unknown CSF Glucose 54 mg/dL 04/13/17 Unknown CSF Total Protein 32 mg/dL 04/13/17 Unknown CSF VDRL Nonreactive (Nonreactive) 04/13/17 Unknown Urine Opiates Screen Presumptive negative 04/05/17 16:36 Urine Methadone Screen Presumptive negative 04/05/17 16:36 Ur Barbiturates Screen Presumptive negative 04/05/17 16:36 Ur Phencyclidine Scrn Presumptive negative 04/05/17 16:36 Ur Amphetamines Screen Presumptive positive 04/05/17 16:36 U Benzodiazepines Scrn Presumptive negative 04/05/17 16:36 Urine Cocaine Screen Presumptive positive 04/05/17 16:36 U Marijuana (THC) Screen Presumptive negative 04/05/17 16:36 Drugs of Abuse Note Disclamer 04/05/17 16:36 Plasma/Serum Alcohol < 0.01 gm% (0-0.07) 04/05/17 16:36 Immunofix Electrophor see below 04/06/17 20:24 BRE Screen Negative (Negative) 04/07/17 14:49 Proteinase 3 (PR3) Ab <1.0 AI (<1.0) 04/07/17 14:49 Myeloperoxidase Ab <1.0 AI (<1.0) 04/07/17 14:49 Complement C3 125 mg/dL (90-180) 04/10/17 11:35 Complement C4 30 mg/dL (16-47) 04/10/17 11:35 Hepatitis A IgM Ab Non-reactive (NonReactive) 04/06/17 20:24 Hep Bs Antigen Non-reactive (Negative) 04/06/17 20:24 Hep B Core IgM Ab Non-reactive (NonReactive) 04/06/17 20:24 Hepatitis C Antibody Non-reactive (NonReactive) 04/06/17 20:24 HIV 1&2 Antibody Rapid Non react (Non React) 04/10/17 13:21 HIV P24 Antigen Non react (Non React) 04/10/17 13:21 Miscellaneous Test Flexitest 1 H 04/14/17 Unknown
[2017-04-15] MEDS: LOVENOX SUB-Q SCH (22:29)
[2017-04-16] MEDS: PROVENTIL IH PRN (01:54)
[2017-04-16] MEDS: PERCOCET 5/325 PO PRN ×2 (03:21→14:25)
[2017-04-16] MEDS: TYLENOL PO PRN ×2 (03:22→17:31)
[2017-04-16] MEDS: DOXYCYCLINE HYCLATE 100 MG in NACL 0.9% 250ML 250 ML IV SCH ×2 (04:08→17:32)
[2017-04-16 06:01] LABS: BUN/Creatinine Ratio 7.1; Calcium 8.5 mg/dL (8.4-10.2); Chloride 101.3 mmol/L (98-107); Potassium 5.1 mmol/L (3.6-5.0)
[2017-04-16] MEDS: MORPHINE IV PRN ×2 (09:32→18:51)
[2017-04-16] MEDS: NORMODYNE PO SCH ×3 (09:36→21:51)
--- NOTE | 2017-04-16 10:08 | Progress Note ---
Assessment and Plan Assessment: 1) Sepsis: resolved. Etiology - unclear ? UTI ? viral -HIV and BRE negative -CRP=5.1 -Procal=0.4 -C3/C4 normal -CSF with 20 wbc but hemorragic, protein and glucose normal, not consistent with meningitis 2) UTI: initial UA was negative. Repeat positive. Urine cx negative -CT abd showed moderate to severe [place] perinephric stranding 3) Headache / AMS - resolved 4) Polysubstance abuse +cocaine +meth 5) Bilateral foot pustular rash ? traumatic lesions infected 6) JULIA-worsening on HD 7) Abdominal pain ? -Viral hepatitis negative -CT abd showed moderate to severe [place]xt[place] perinephric stranding Plan: -f/u CMV / EBV serology r/o mono -RPR - pending -stop vancomycin renally dosed -continue ceftriaxone 1 g IV q day -continue doxycycline -upon discharge will do doxycycline 100 mg po q12h and cipro 500 mg po q48h total 10 days to cover feet pustules and UTI -wound care I am covering the weekend Thank you Dr Guadalupe for your consultation, will follow up with you. Shirley Malloy MD Infectious Diseases Specialist [facility] M [phone] O [phone] Subjective Date of service: 04/16/17 Principal diagnosis: Sepsis Syndrome; Chest Pains; Bilateral Rib Fractures Interval history: Feels better, headache resolved. No fever. C/o chest pressure and SOB Current Antimicrobials: vanco 04/14 ceftriaxone 04/13 doxycycline 04/15 Previous Antimicrobials: levaquin 04/10 clindamycin 04/13 Microbiology: Blood cultures: 04/05 ngtd 04/13 ngtd Urine cultures: 04/05 neg 04/11 neg CSF 04/13 neg Objective - Exam Narrative Exam: General appearance: Alert in NAD, conversant Eyes: anicteric sclerae, moist conjunctivae; no lid-lag; PERRLA HENT: Atraumatic; oropharynx clear with moist mucous membranes and no mucosal ulcerations/no oral thrush; normal hard and soft palate. Normal external ears. Neck: Trachea midline; supple, no thyromegaly or lymphadenopathy Lungs: bibasilar crackles CV: RRR, no murmurs Abdomen: Soft, +diffuse tenderness sixto Extremities: No peripheral edema or extremity lymphadenopathy Skin: sixto foot pustular rash and sixto sole desquamation Psych: Appropriate affect, alert and oriented to person, place and time. Neuro: alert and oriented x 3. Moving all extermities Lines: No CVL / PICC - Constitutional Vitals: Vital Signs Temp Pulse Resp BP Pulse Ox 98.7 F 65 15 163/100 96 04/16/17 08:37 04/16/17 08:37 04/16/17 08:37 04/16/17 08:37 04/16/17 08:37 Temperature -Last 24 Hours Temperature 98.7 F Temperature 98.5 F Temperature 98.8 F Temperature 98.9 F Temperature 99.0 F - Labs CBC & Chem 7: 04/13/17 05:45 04/16/17 04:58 Labs: Abnormal lab results 04/14/17 04/16/17 Range/Units Unknown 04:58 Potassium 5.1 H (3.6-5.0) mmol/L BUN 54 H (9-20) mg/dL Creatinine 7.6 H (0.8-1.5) mg/dL Glucose 102 H (75-100) mg/dL Miscellaneous Test Flexitest 1 H
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
--- NOTE | 2017-04-16 10:22 | Progress Note ---
Assessment and Plan Assessment and plan: --Sepsis. Persistent fever, resolved Blood cultures are negative. Lumbar puncture negative Continued IV antibiotics. Echocardiogram; ejection fraction 50-55%, no evidence of endocarditis Vancomycin discontinued, continue Rocephin and doxycycline per ID --Acute nonoliguric renal failure/secondary to ATN. sepsis , rhabdomyolysis. Nephrology following Hemodialysis per schedule 2 times a week, patient HD scheduled case management --Severe back pain; patient reports back surgery,lumbosacral spine x-ray no acute abnormality --Hyperkalemia. Management per nephrology --Rhabdomyolysis. Resolved --Substance abuse; cocaine and amphetamines, counseling done patient strongly advised to quit --Hypernatremia. Resolved. --UTI. Continue IV antibiotics. Urine and blood cultures are negative. --Toxic metabolic Encephalopathy. Resolved --Abdominal pain. Resolved --Accelerated hypertension. Moderate control, continue current antihypertensive some when necessary medications --Schizoaffective disorder/substance-induced psychosis. Psychiatry following. -- DVT prophylaxis; Lovenox renal dose Discharge planning per Case management, pending patient's HD chairs scheduling History Interval history: I have seen and examined the patient in dialysis unit today Patient is receiving dialysis tolerated well No new complaints Vital signs reviewed stable Hospitalist Physical - Constitutional Vitals: Temp Pulse Resp BP Pulse Ox 98.7 F 65 15 163/100 96 04/16/17 08:37 04/16/17 08:37 04/16/17 08:37 04/16/17 08:37 04/16/17 08:37 General appearance: Present: no acute distress, well-nourished, obese - EENT Eyes: Present: PERRL, EOM intact - Neck Neck: Present: supple, normal ROM - Respiratory Respiratory effort: normal Respiratory: bilateral: diminished, negative: rales, rhonchi, wheezing - Cardiovascular Rhythm: regular Heart Sounds: Present: S1 & S2 - Extremities Extremities: no ischemia, No edema, abnormal (rash bilateral feet) - Abdominal General gastrointestinal: soft, non-tender, non-distended, normal bowel sounds - Integumentary Integumentary: Present: clear, warm - Psychiatric Psychiatric: appropriate mood/affect, cooperative - Neurologic Neurologic: CNII-XII intact, moves all extremities Results - Labs CBC & Chem 7: 04/13/17 05:45 04/16/17 04:58 Labs: Laboratory Last Values WBC 8.7 K/mm3 (4.5-11.0) 04/13/17 05:45 RBC 2.71 M/mm3 (3.65-5.03) L 04/13/17 05:45 Hgb 9.0 gm/dl (11.8-15.2) L 04/13/17 05:45 Hct 26.0 % (35.5-45.6) L 04/13/17 05:45 MCV 96 fl (84-94) H 04/13/17 05:45 MCH 33 pg (28-32) H 04/13/17 05:45 MCHC 35 % (32-34) H 04/13/17 05:45 RDW 12.7 % (13.2-15.2) L 04/13/17 05:45 Plt Count 173 K/mm3 (140-440) 04/13/17 05:45 Lymph % (Auto) 10.6 % (13.4-35.0) L 04/13/17 05:45 [place] % (Auto) 11.5 % (0.0-7.3) H 04/13/17 05:45 Eos % (Auto) 2.2 % (0.0-4.3) 04/13/17 05:45 Baso % (Auto) 0.5 % (0.0-1.8) 04/13/17 05:45 Lymph # 0.9 K/mm3 (1.2-5.4) L 04/13/17 05:45 [place] # 1.0 K/mm3 (0.0-0.8) H 04/13/17 05:45 Eos # 0.2 K/mm3 (0.0-0.4) 04/13/17 05:45 Baso # 0.0 K/mm3 (0.0-0.1) 04/13/17 05:45 Seg Neutrophils % 75.2 % (40.0-70.0) H 04/13/17 05:45 Seg Neutrophils # 6.5 K/mm3 (1.8-7.7) 04/13/17 05:45 PT 13.6 Sec. (12.2-14.9) 04/13/17 14:29 INR 1.05 (0.87-1.13) 04/13/17 14:29 APTT 35.7 Sec. (24.2-36.6) 04/13/17 14:29 POC ABG pH 7.325 (7.35-7.45) L 04/05/17 17:59 POC ABG pCO2 34.2 (35-45) L 04/05/17 17:59 POC ABG pO2 132 (80-105) H 04/05/17 17:59 POC ABG HCO3 17.8 04/05/17 17:59 POC ABG Total CO2 19 04/05/17 17:59 POC ABG O2 Sat 99 04/05/17 17:59 POC ABG Base Excess -8 04/05/17 17:59 VBG pH 7.186 (7.320-7.420) L* 04/05/17 16:36 FiO2 28 % 04/05/17 17:59 Sodium 139 mmol/L (137-145) 04/16/17 04:58 Potassium 5.1 mmol/L (3.6-5.0) H 04/16/17 04:58 Chloride 101.3 mmol/L (98-107) 04/16/17 04:58 Carbon Dioxide 24 mmol/L (22-30) 04/16/17 04:58 Anion Gap 19 mmol/L 04/16/17 04:58 BUN 54 mg/dL (9-20) H 04/16/17 04:58 Creatinine 7.6 mg/dL (0.8-1.5) H 04/16/17 04:58 Estimated GFR 10 ml/min 04/16/17 04:58 BUN/Creatinine Ratio 7.10 % 04/16/17 04:58 Glucose 102 mg/dL (75-100) H 04/16/17 04:58 POC Glucose 130 (70-105) H 04/05/17 16:55 Osmolality 308 Mosm/kg 04/06/17 20:24 Lactic Acid 2.00 mmol/L (0.7-2.0) 04/07/17 08:03 Uric Acid 9.2 mg/dL (3.5-7.6) H 04/07/17 08:02 Calcium 8.5 mg/dL (8.4-10.2) 04/16/17 04:58 Ionized Calcium 4.5 mg/dL (4.8-5.6) L 04/07/17 14:49 Total Bilirubin 1.20 mg/dL (0.1-1.2) 04/06/17 11:02 AST 160 units/L (5-40) H 04/06/17 11:02 ALT 48 units/L (7-56) 04/06/17 11:02 Alkaline Phosphatase 59 units/L (35-129) 04/06/17 11:02 Ammonia 76.0 umol/L (25-60) H 04/05/17 17:41 Total Creatine Kinase 145 units/L (55-170) 04/07/17 08:02 CK-MB (CK-2) 7.6 ng/mL (0.0-4.0) H 04/05/17 16:36 CK-MB (CK-2) Rel Index 0.6 (0-4) 04/05/17 16:36 Troponin T < 0.010 ng/mL (0.00-0.029) 04/08/17 01:43 C-Reactive Protein 5.10 mg/dL (0.00-1.30) H 04/13/17 14:29 Total Protein 6.1 g/dL (6.3-8.2) L D 04/06/17 11:02 Albumin 3.6 g/dL (3.9-5) L 04/06/17 11:02 Albumin/Globulin Ratio 1.4 % 04/06/17 11:02 TSH 1.700 mlU/mL (0.270-4.200) 04/05/17 16:36 Free T4 0.82 ng/dL (0.76-1.46) 04/05/17 16:36 Urine Color Red (Yellow) 04/06/17 12:44 Urine Turbidity Cloudy (Clear) 04/06/17 12:44 Urine pH 6.0 (5.0-7.0) 04/06/17 12:44 Ur Specific [place] 1.012 (1.003-1.030) 04/06/17 12:44 Urine Protein 100 mg/dl mg/dL (Negative) 04/06/17 12:44 Urine Glucose (UA) 50 mg/dL (Negative) 04/06/17 12:44 Urine Ketones Neg mg/dL (Negative) 04/06/17 12:44 Urine Blood Lg (Negative) 04/06/17 12:44 Urine Nitrite Neg (Negative) 04/06/17 12:44 Urine Bilirubin Neg (Negative) 04/06/17 12:44 Urine Urobilinogen < 2.0 mg/dL (<2.0) 04/06/17 12:44 Ur Leukocyte Esterase Mod (Negative) 04/06/17 12:44 Urine WBC (Auto) > 182.0 /HPF (0.0-6.0) H 04/06/17 12:44 Urine RBC (Auto) > 182.0 /HPF (0.0-6.0) 04/06/17 12:44 U Epithel Cells (Auto) 1.0 /HPF (0-13.0) 04/06/17 09:00 Urine Bacteria (Auto) 2+ /HPF (Negative) 04/06/17 12:44 Urine WBC Clumps 3+ /HPF 04/06/17 12:44 Urine Mucus 1+ /HPF 04/06/17 12:44 Urine Creatinine 87.4 mg/dL (0.1-20.0) H 04/06/17 12:44 Urine Sodium 73 mEq/L 04/06/17 12:44 Urine Total Protein 589 mg/dL (5-11.8) H 04/06/17 12:44 CSF Appearance Clear 04/13/17 Unknown CSF Color Colorless 04/13/17 Unknown CSF WBC 20 /mm3 (1-10) 04/13/17 Unknown CSF RBC 120 /mm3 (0-0) 04/13/17 Unknown CSF Comment No cells seen 04/13/17 Unknown CSF Pathologist Review C 04/13/17 Unknown CSF Glucose 54 mg/dL 04/13/17 Unknown CSF Total Protein 32 mg/dL 04/13/17 Unknown CSF VDRL Nonreactive (Nonreactive) 04/13/17 Unknown Random Vancomycin 16.3 ug/mL (0-40.0) 04/16/17 04:58 Urine Opiates Screen Presumptive negative 04/05/17 16:36 Urine Methadone Screen Presumptive negative 04/05/17 16:36 Ur Barbiturates Screen Presumptive negative 04/05/17 16:36 Ur Phencyclidine Scrn Presumptive negative 04/05/17 16:36 Ur Amphetamines Screen Presumptive positive 04/05/17 16:36 U Benzodiazepines Scrn Presumptive negative 04/05/17 16:36 Urine Cocaine Screen Presumptive positive 04/05/17 16:36 U Marijuana (THC) Screen Presumptive negative 04/05/17 16:36 Drugs of Abuse Note Disclamer 04/05/17 16:36 Plasma/Serum Alcohol < 0.01 gm% (0-0.07) 04/05/17 16:36 Immunofix Electrophor see below 04/06/17 20:24 BRE Screen Negative (Negative) 04/07/17 14:49 Proteinase 3 (PR3) Ab <1.0 AI (<1.0) 04/07/17 14:49 Myeloperoxidase Ab <1.0 AI (<1.0) 04/07/17 14:49 Complement C3 125 mg/dL (90-180) 04/10/17 11:35 Complement C4 30 mg/dL (16-47) 04/10/17 11:35 Hepatitis A IgM Ab Non-reactive (NonReactive) 04/06/17 20:24 Hep Bs Antigen Non-reactive (Negative) 04/06/17 20:24 Hep B Core IgM Ab Non-reactive (NonReactive) 04/06/17 20:24 Hepatitis C Antibody Non-reactive (NonReactive) 04/06/17 20:24 HIV 1&2 Antibody Rapid Non react (Non React) 04/10/17 13:21 HIV P24 Antigen Non react (Non React) 04/10/17 13:21 Miscellaneous Test Flexitest 1 H 04/14/17 Unknown
[2017-04-16] MEDS ORDERED: NACL 0.9 (PRIMING MACHINE ONLY DIALYSIS) MC ONE (10:51)
--- NOTE | 2017-04-16 11:09 | Progress Note ---
Assessment and Plan (1) Sepsis Current Visit: Yes Status: Acute Qualifiers: Sepsis type: S Plan to address problem: - improved - follow cultures - de-escalate anti-infectives per ID recs - trend lactate & crp prn (2) ARF (acute renal failure) Current Visit: Yes Status: Acute Qualifiers: Acute renal failure type: A Plan to address problem: - making urine (non-oliguric) - likely rhabdomyolysis element - per nephrology - Dialysis M/W/F (3) Altered mental status Current Visit: Yes Status: Acute Qualifiers: Altered mental status type: A Coma depth: C Coma timing: C Plan to address problem: - improved - psychiatry consultation (4) Left-sided chest wall pain Current Visit: Yes Status: Acute Plan to address problem: - Bilateral fractures on Rib series X-ray - continue incentive spirometry - continue prn analgesia .......will see prn Subjective Date of service: 04/16/17 Principal diagnosis: Sepsis Syndrome; Chest Pains; Bilateral Rib Fractures Interval history: Seen and examined at bedside; 24 hour events reviewed; nursing and respiratory care staff consulted; no adverse overnight events reported to me; still complains of some pleuritic chest pain; reproducible with palpation over fractured ribs Objective Vital Signs - 12hr 04/16/17 04/16/17 04/16/17 00:05 02:00 02:10 Temperature 98.8 F Pulse Rate 79 Pulse Rate [ 75 77 Bilateral Throughout] Respiratory 20 Rate Respiratory 22 20 Rate [Bilateral Throughout] Blood Pressure 138/86 O2 Sat by Pulse 96 Oximetry 04/16/17 04/16/17 04/16/17 04:24 08:37 09:55 Temperature 98.5 F 98.7 F 98.4 F Pulse Rate 75 65 75 Pulse Rate [ Bilateral Throughout] Respiratory 20 15 20 Rate Respiratory Rate [Bilateral Throughout] Blood Pressure 144/87 163/100 172/101 O2 Sat by Pulse 94 96 Oximetry 04/16/17 10:15 Temperature Pulse Rate 65 Pulse Rate [ Bilateral Throughout] Respiratory Rate Respiratory Rate [Bilateral Throughout] Blood Pressure 185/103 O2 Sat by Pulse Oximetry Constitutional: no acute distress, alert Eyes: non-icteric ENT: oropharynx moist Neck: supple, no lymphadenopathy Effort: normal Ascultation: Bilateral: clear, other (tender to palpation over mid ribcage posterolaterally) Cardiovascular: regular rate and rhythm Gastrointestinal: normoactive bowel sounds, soft, non-tender, non-distended Integumentary: normal Extremities: no cyanosis, no edema, pulses normal, no ischemia or petechiae Neurologic: normal mental status, non-focal exam, pupils equal and round, CN II- XII normal Psychiatric: mood appropriate CBC and BMP: 04/17/17 17:14 04/18/17 07:22 ABG, PT/INR, D-dimer: ABG POC ABG pH 7.325 (7.35-7.45) L 04/05/17 17:59 POC ABG pCO2 34.2 (35-45) L 04/05/17 17:59 POC ABG pO2 132 (80-105) H 04/05/17 17:59 POC ABG HCO3 17.8 04/05/17 17:59 POC ABG Total CO2 19 04/05/17 17:59 POC ABG O2 Sat 99 04/05/17 17:59 PT/INR, D-dimer PT 13.6 Sec. (12.2-14.9) 04/13/17 14:29 INR 1.05 (0.87-1.13) 04/13/17 14:29 Abnormal lab findings: Abnormal Labs 04/06/17 04/06/17 04/06/17 00:54 08:52 08:52 WBC 12.0 H RBC 3.30 L Hgb 10.8 L D Hct 32.1 L D MCV 97 H MCH 33 H MCHC RDW 12.6 L Plt Count Lymph % (Auto) 5.9 L Harris % (Auto) 8.6 H Lymph # 0.7 L Harris # 1.0 H Seg Neutrophils % 84.7 H Seg Neutrophils # 10.1 H Sodium 168 H* D Potassium 3.3 L D Chloride 115.6 H Carbon Dioxide 13 L BUN 21 H Creatinine 2.0 H Glucose 73 L Lactic Acid 2.10 H* Uric Acid Calcium 5.6 L* D Ionized Calcium AST Total Creatine Kinase C-Reactive Protein Total Protein Albumin Urine WBC (Auto) Urine Creatinine Urine Total Protein Miscellaneous Test 04/06/17 04/06/17 04/06/17 09:00 11:02 11:02 WBC 14.2 H RBC Hgb Hct MCV 99 H MCH MCHC RDW 12.9 L Plt Count Lymph % (Auto) 9.7 L Harris % (Auto) 7.7 H Lymph # Harris # 1.1 H Seg Neutrophils % 81.6 H Seg Neutrophils # 11.6 H Sodium 146 H D Potassium Chloride 111.8 H Carbon Dioxide 19 L BUN 26 H Creatinine 2.8 H Glucose 117 H Lactic Acid Uric Acid Calcium 8.0 L D Ionized Calcium AST 160 H Total Creatine Kinase C-Reactive Protein Total Protein 6.1 L D Albumin 3.6 L Urine WBC (Auto) > 182.0 H Urine Creatinine Urine Total Protein Miscellaneous Test 04/06/17 04/06/17 04/06/17 12:44 12:44 20:24 WBC RBC Hgb Hct MCV MCH MCHC RDW Plt Count Lymph % (Auto) Harris % (Auto) Lymph # Harris # Seg Neutrophils % Seg Neutrophils # Sodium Potassium Chloride Carbon Dioxide BUN Creatinine Glucose Lactic Acid Uric Acid Calcium Ionized Calcium AST Total Creatine Kinase C-Reactive Protein 2.90 H Total Protein Albumin Urine WBC (Auto) > 182.0 H Urine Creatinine 87.4 H Urine Total Protein 589 H Miscellaneous Test 04/07/17 04/07/17 04/07/17 08:02 08:02 08:03 WBC 12.6 H RBC Hgb Hct MCV 99 H MCH MCHC RDW 12.4 L Plt Count Lymph % (Auto) 7.0 L Harris % (Auto) 7.5 H Lymph # 0.9 L Harris # 0.9 H Seg Neutrophils % 83.0 H Seg Neutrophils # 10.5 H Sodium Potassium Chloride 110.8 H Carbon Dioxide 17 L BUN 35 H Creatinine 5.3 H D Glucose 123 H Lactic Acid Uric Acid 9.2 H Calcium 7.8 L Ionized Calcium AST Total Creatine Kinase 5277 H C-Reactive Protein Total Protein Albumin Urine WBC (Auto) Urine Creatinine Urine Total Protein Miscellaneous Test 04/07/17 04/08/17 04/08/17 14:49 02:19 02:19 WBC RBC 3.40 L Hgb 11.3 L Hct 33.2 L MCV 98 H MCH 33 H MCHC RDW 12.6 L Plt Count Lymph % (Auto) 11.2 L Harris % (Auto) 7.6 H Lymph # 1.0 L Harris # Seg Neutrophils % 77.8 H Seg Neutrophils # Sodium Potassium Chloride Carbon Dioxide 15 L BUN 38 H Creatinine 7.0 H Glucose 108 H Lactic Acid Uric Acid Calcium 7.8 L Ionized Calcium 4.5 L AST Total Creatine Kinase C-Reactive Protein Total Protein Albumin Urine WBC (Auto) Urine Creatinine Urine Total Protein Miscellaneous Test 04/09/17 04/09/17 04/10/17 07:21 07:21 05:14 WBC RBC 3.10 L 3.19 L Hgb 10.3 L 10.5 L Hct 29.4 L 30.2 L MCV 95 H 95 H MCH 33 H 33 H MCHC 35 H 35 H RDW 12.4 L 12.6 L Plt Count 136 L 129 L Lymph % (Auto) 8.1 L 11.5 L Harris % (Auto) 9.5 H 14.3 H Lymph # 0.6 L 0.9 L Harris # 1.1 H Seg Neutrophils % 80.4 H 71.0 H Seg Neutrophils # Sodium Potassium Chloride Carbon Dioxide BUN 25 H Creatinine 6.2 H Glucose 121 H Lactic Acid Uric Acid Calcium 8.1 L Ionized Calcium AST Total Creatine Kinase C-Reactive Protein Total Protein Albumin Urine WBC (Auto) Urine Creatinine Urine Total Protein Miscellaneous Test 04/10/17 04/11/17 04/11/17 05:14 08:29 08:29 WBC RBC 3.02 L Hgb 10.0 L Hct 28.9 L MCV 96 H MCH 33 H MCHC 35 H RDW 12.7 L Plt Count Lymph % (Auto) 9.9 L Harris % (Auto) 12.5 H Lymph # 0.9 L Harris # 1.2 H Seg Neutrophils % 74.2 H Seg Neutrophils # Sodium Potassium Chloride Carbon Dioxide BUN 28 H Creatinine 5.9 H 6.2 H Glucose 114 H 113 H Lactic Acid Uric Acid Calcium 7.8 L 8.1 L Ionized Calcium AST Total Creatine Kinase C-Reactive Protein Total Protein Albumin Urine WBC (Auto) Urine Creatinine Urine Total Protein Miscellaneous Test 04/12/17 04/12/17 04/13/17 07:33 07:33 05:45 WBC RBC 2.92 L 2.71 L Hgb 9.6 L 9.0 L Hct 27.8 L 26.0 L MCV 95 H 96 H MCH 33 H 33 H MCHC 35 H 35 H RDW 12.7 L 12.7 L Plt Count Lymph % (Auto) 8.1 L 10.6 L Harris % (Auto) 11.1 H 11.5 H Lymph # 0.8 L 0.9 L Harris # 1.1 H 1.0 H Seg Neutrophils % 77.5 H 75.2 H Seg Neutrophils # Sodium Potassium 6.4 H* D Chloride Carbon Dioxide BUN 45 H Creatinine 7.9 H Glucose 105 H Lactic Acid Uric Acid Calcium 8.2 L Ionized Calcium AST Total Creatine Kinase C-Reactive Protein Total Protein Albumin Urine WBC (Auto) Urine Creatinine Urine Total Protein Miscellaneous Test 04/13/17 04/13/17 04/14/17 08:43 14:29 04:58 WBC RBC Hgb Hct MCV MCH MCHC RDW Plt Count Lymph % (Auto) Harris % (Auto) Lymph # Harris # Seg Neutrophils % Seg Neutrophils # Sodium Potassium 5.7 H 5.5 H Chloride Carbon Dioxide BUN 42 H 54 H Creatinine 6.5 H 8.4 H Glucose 113 H 103 H Lactic Acid Uric Acid Calcium 8.3 L Ionized Calcium AST Total Creatine Kinase C-Reactive Protein 5.10 H Total Protein Albumin Urine WBC (Auto) Urine Creatinine Urine Total Protein Miscellaneous Test 04/14/17 04/15/17 04/16/17 Unknown 05:59 04:58 WBC RBC Hgb Hct MCV MCH MCHC RDW Plt Count Lymph % (Auto) Harris % (Auto) Lymph # Harris # Seg Neutrophils % Seg Neutrophils # Sodium Potassium 5.1 H Chloride Carbon Dioxide BUN 45 H 54 H Creatinine 6.5 H 7.6 H Glucose 111 H 102 H Lactic Acid Uric Acid Calcium Ionized Calcium AST Total Creatine Kinase C-Reactive Protein Total Protein Albumin Urine WBC (Auto) Urine Creatinine Urine Total Protein Miscellaneous Test Flexitest 1 H
--- NOTE | 2017-04-16 13:39 | Progress Note ---
Assessment and Plan Assessment: * Nonoliguric acute kidney injury attributed to ATN vs other --Work up negative to date - ANCA, C3/C4, HIV, Hepatitis, SPEP * Polysubstance abuse * Hypertension * Rhabdomyolysis, mild - resolved * Proteinuria * Schizoaffective DO * Chronic NSAID use * Persistent low grade fever Plan: * Hemodialysis MWF * ID following, recommendations reviewed * Would benefit from renal bx in future if his renal function fails to improve * Continue antiHTN medications * Empiric abx per ID * Avoid potential nephrotoxins * Dose medications for renal function * Strict I/O * Psychiatry following Subjective Date of service: 04/16/17 Principal diagnosis: Sepsis Syndrome; Chest Pains; Bilateral Rib Fractures Interval history: resting well in bed Objective - Exam Narrative Exam: General appearance: well-developed, well-nourished EENT: ATNC Respiratory: Present: Clear to Ascultation Cardiology: regular, S1S2 Gastrointestinal: normal, no tenderness, no distended Integumentary: no rash Musculoskeletal: other (no edema) Psychiatric: cooperative - Vital Signs Vital signs: Vital Signs - 12hr 04/16/17 04/16/17 04/16/17 02:00 02:10 04:24 Temperature 98.5 F Pulse Rate 75 Pulse Rate [ 75 77 Bilateral Throughout] Respiratory 20 Rate Respiratory 22 20 Rate [Bilateral Throughout] Blood Pressure 144/87 O2 Sat by Pulse 94 Oximetry 04/16/17 04/16/17 04/16/17 08:37 09:55 10:15 Temperature 98.7 F 98.4 F Pulse Rate 65 75 65 Pulse Rate [ Bilateral Throughout] Respiratory 15 20 Rate Respiratory Rate [Bilateral Throughout] Blood Pressure 163/100 172/101 185/103 O2 Sat by Pulse 96 Oximetry 04/16/17 04/16/17 04/16/17 10:30 10:45 11:00 Temperature Pulse Rate 68 66 73 Pulse Rate [ Bilateral Throughout] Respiratory Rate Respiratory Rate [Bilateral Throughout] Blood Pressure 177/102 172/100 193/106 O2 Sat by Pulse Oximetry 04/16/17 04/16/17 04/16/17 11:15 11:30 11:45 Temperature Pulse Rate 62 64 69 Pulse Rate [ Bilateral Throughout] Respiratory Rate Respiratory Rate [Bilateral Throughout] Blood Pressure 172/106 178/107 187/110 O2 Sat by Pulse Oximetry 04/16/17 04/16/17 04/16/17 12:00 12:15 12:30 Temperature Pulse Rate 690 H 58 L 59 L Pulse Rate [ Bilateral Throughout] Respiratory Rate Respiratory Rate [Bilateral Throughout] Blood Pressure 184/103 174/99 181/106 O2 Sat by Pulse Oximetry 04/16/17 12:45 Temperature Pulse Rate 58 L Pulse Rate [ Bilateral Throughout] Respiratory Rate Respiratory Rate [Bilateral Throughout] Blood Pressure 180/102 O2 Sat by Pulse Oximetry - Lab 04/13/17 05:45 04/16/17 04:58 Most recent lab results Calcium 8.5 mg/dL (8.4-10.2) 04/16/17 04:58 Urine Creatinine 87.4 mg/dL (0.1-20.0) H 04/06/17 12:44 Urine Sodium 73 mEq/L 04/06/17 12:44 Urine Total Protein 589 mg/dL (5-11.8) H 04/06/17 12:44
[2017-04-16] MEDS: NORVASC PO SCH (14:25)
[2017-04-16] MEDS: PEPCID PO SCH (14:27)
[2017-04-16] MEDS ORDERED: APRESOLINE IV ONE (14:30)
[2017-04-16] MEDS: HEPARIN IV PRN (14:54)
[2017-04-16] MEDS ORDERED: VANCOMYCIN 1,500 MG in NACL 0.9% 500 ML 500 ML IV ONE (16:00)
[2017-04-16] MEDS: ROCEPHIN/NS 1 GM/50 ML 1 GM/50 ML BAG IV SCH (18:05)
[2017-04-16] MEDS: LOVENOX SUB-Q SCH (21:52)
[2017-04-16] MEDS: BENADRYL IV PRN (23:16)
[2017-04-17] MEDS: DOXYCYCLINE HYCLATE 100 MG in NACL 0.9% 250ML 250 ML IV SCH (04:04)
--- NOTE | 2017-04-17 04:26 | Event Note ---
Date: 04/17/17 Nurse called that patient has bloody stools. Check serial H/H. Start Protonix.
[2017-04-17] MEDS: PROTONIX IV SCH ×2 (05:06→21:28)
[2017-04-17 07:06] LABS: Hematocrit 23.6 % (35.5-45.6)
[2017-04-17 07:28] LABS: BUN/Creatinine Ratio 6.6; Calcium 8.6 mg/dL (8.4-10.2); Chloride 100.3 mmol/L (98-107); Potassium 4.4 mmol/L (3.6-5.0)
[2017-04-17] MEDS: NORMODYNE PO SCH ×3 (09:31→21:27)
[2017-04-17] MEDS: NORVASC PO SCH (09:31)
[2017-04-17] MEDS: PERCOCET 5/325 PO PRN (09:31)
[2017-04-17 10:47] LABS: Hematocrit 23.5 % (35.5-45.6)
--- NOTE | 2017-04-17 11:11 | Progress Note ---
Assessment and Plan Assessment: * Nonoliguric acute kidney injury attributed to ATN vs other --Work up negative to date - ANCA, C3/C4, HIV, Hepatitis, SPEP * Polysubstance abuse * Hypertension * Rhabdomyolysis, mild - resolved * Proteinuria * Schizoaffective DO * Chronic NSAID use * Persistent low grade fever * gi bleed Plan: * Hemodialysis MWF * ID following, recommendations reviewed * Would benefit from renal bx in future if his renal function fails to improve * Continue antiHTN medications * Empiric abx per ID * Avoid potential nephrotoxins * Dose medications for renal function * Strict I/O * Psychiatry following Subjective Date of service: 04/17/17 Principal diagnosis: Sepsis Syndrome; Chest Pains; Bilateral Rib Fractures Interval history: resting well in bed Objective - Exam Narrative Exam: General appearance: well-developed, well-nourished EENT: ATNC Respiratory: Present: Clear to Ascultation Cardiology: regular, S1S2 Gastrointestinal: normal, no tenderness, no distended Integumentary: no rash Musculoskeletal: other (no edema) Psychiatric: cooperative - Vital Signs Vital signs: Vital Signs - 12hr 04/16/17 04/17/17 04/17/17 23:28 04:57 08:00 Temperature 99.8 F H 99.6 F 99.4 F Pulse Rate 71 80 77 Respiratory 20 20 20 Rate Blood Pressure 140/90 156/88 171/101 O2 Sat by Pulse 96 96 97 Oximetry - Lab 04/17/17 10:12 04/17/17 06:35 Most recent lab results Calcium 8.6 mg/dL (8.4-10.2) 04/17/17 06:35 Urine Creatinine 87.4 mg/dL (0.1-20.0) H 04/06/17 12:44 Urine Sodium 73 mEq/L 04/06/17 12:44 Urine Total Protein 589 mg/dL (5-11.8) H 04/06/17 12:44
[2017-04-17] MEDS: FIORICET PO PRN ×2 (13:29→21:49)
--- NOTE | 2017-04-17 14:54 | Progress Note ---
Assessment and Plan Assessment: 1) Sepsis: resolved. Etiology - unclear ? UTI ? viral -HIV and BRE negative -CRP=5.1 -Procal=0.4 -C3/C4 normal -CSF with 20 wbc but hemorragic, protein and glucose normal, not consistent with meningitis 2) UTI: initial UA was negative. Repeat positive. Urine cx negative -CT abd showed moderate to severe sixto perinephric stranding 3) Headache / AMS - resolved 4) Polysubstance abuse +cocaine +meth 5) Bilateral foot pustular rash ? traumatic lesions infected 6) JULIA-worsening on HD 7) Abdominal pain ? -Viral hepatitis negative -CT abd showed moderate to severe sixto perinephric stranding Plan: -f/u CMV / EBV serology r/o mono -RPR - pending -stop ceftriaxone -start doxycycline 100 mg po q12h and cipro 500 mg po q48h total 10 days to cover foot pustules and UTI -wound care Thank you Dr Guadalupe for your consultation, will follow up with you. Shirley Malloy MD Infectious Diseases Specialist [facility] [phone] Subjective Date of service: 04/17/17 Principal diagnosis: Sepsis Syndrome; Chest Pains; Bilateral Rib Fractures Interval history: Feels ok still c/o SOB. He had HD yesterday. No fever. Current Antimicrobials: ceftriaxone 04/13 doxycycline 04/15 Previous Antimicrobials: levaquin 04/10 clindamycin 04/13 vanco 04/14 Microbiology: Blood cultures: 04/05 ngtd 04/13 ngtd Urine cultures: 04/05 neg 04/11 neg CSF 04/13 neg Objective - Exam Narrative Exam: General appearance: Alert in NAD, conversant Eyes: anicteric sclerae, moist conjunctivae; no lid-lag; PERRLA HENT: Atraumatic; oropharynx clear with moist mucous membranes and no mucosal ulcerations/no oral thrush; normal hard and soft palate. Normal external ears. Neck: Trachea midline; supple, no thyromegaly or lymphadenopathy Lungs: bibasilar crackles CV: RRR, no murmurs Abdomen: Soft, +diffuse tenderness sixto Extremities: No peripheral edema or extremity lymphadenopathy Skin: sixto foot pustular rash and sixto sole desquamation Psych: Appropriate affect, alert and oriented to person, place and time. Neuro: alert and oriented x 3. Moving all extermities Lines: No CVL / PICC - Constitutional Vitals: Vital Signs Temp Pulse Resp BP Pulse Ox 99.4 F 77 20 171/101 97 04/17/17 08:00 04/17/17 08:00 04/17/17 08:00 04/17/17 08:00 04/17/17 08:00 Temperature -Last 24 Hours Temperature 99.4 F Temperature 99.6 F Temperature 99.8 F Temperature 99.4 F Temperature 99.5 F - Labs CBC & Chem 7: 04/17/17 10:12 04/17/17 06:35 Labs: Abnormal lab results 04/17/17 04/17/17 04/17/17 Range/Units 06:35 06:35 10:12 Hgb 8.0 L 8.0 L (11.8-15.2) gm/dl Hct 23.6 L 23.5 L (35.5-45.6) % BUN 35 H (9-20) mg/dL Creatinine 5.3 H (0.8-1.5) mg/dL Glucose 102 H (75-100) mg/dL
[2017-04-17] MEDS: LEVAQUIN PO SCH (15:30)
--- NOTE | 2017-04-17 16:19 | Progress Note ---
Assessment and Plan Assessment and plan: --Acute nonoliguric renal failure/secondary to ATN. sepsis , rhabdomyolysis. Nephrology following Hemodialysis per schedule 3 times a week, outpt HD scheduling per case management --Sepsis. Persistent fever, resolved Blood cultures are negative. Lumbar puncture negative Continued IV antibiotics. Echocardiogram; ejection fraction 50-55%, no evidence of endocarditis Vancomycin discontinued, Rocephin, continue doxycycline per ID --Migraine headache; start Fiorecet as needed and supportive care --Hyperkalemia. Corrected --Rhabdomyolysis. Resolved --Substance abuse; cocaine and amphetamines, counseling done patient strongly advised to quit --Hypernatremia. Resolved. --UTI. On order Cipro per ID. Urine and blood cultures are negative. --Toxic metabolic Encephalopathy. Resolved --Abdominal pain. Resolved --Accelerated hypertension. Moderate control, continue current antihypertensive some when necessary medications --Schizoaffective disorder/substance-induced psychosis. Psychiatry following. -- DVT prophylaxis; Lovenox renal dose Discharge planning per Case management, pending patient's HD chairs scheduling Patient is planning to go back to [place], case management to assist with transition History Interval history: Patient seen and examined medical history complaints of some migraine headaches Alert awake oriented 3 not in acute distress vital signs reviewed Hospitalist Physical - Constitutional Vitals: Temp Pulse Resp BP Pulse Ox 98.5 F 69 20 130/88 98 04/17/17 15:28 04/17/17 15:28 04/17/17 15:28 04/17/17 15:28 04/17/17 15:28 General appearance: Present: no acute distress, well-nourished, obese - EENT Eyes: Present: PERRL, EOM intact - Neck Neck: Present: supple, normal ROM - Respiratory Respiratory effort: normal Respiratory: bilateral: diminished, negative: rales, rhonchi, wheezing - Cardiovascular Rhythm: regular Heart Sounds: Present: S1 & S2 - Extremities Extremities: no ischemia, No edema - Abdominal General gastrointestinal: soft, non-tender, non-distended, normal bowel sounds - Integumentary Integumentary: Present: clear, warm - Psychiatric Psychiatric: appropriate mood/affect, cooperative - Neurologic Neurologic: CNII-XII intact, moves all extremities Results - Labs CBC & Chem 7: 04/17/17 10:12 04/17/17 06:35 Labs: Laboratory Last Values WBC 8.7 K/mm3 (4.5-11.0) 04/13/17 05:45 RBC 2.71 M/mm3 (3.65-5.03) L 04/13/17 05:45 Hgb 8.0 gm/dl (11.8-15.2) L 04/17/17 10:12 Hct 23.5 % (35.5-45.6) L 04/17/17 10:12 MCV 96 fl (84-94) H 04/13/17 05:45 MCH 33 pg (28-32) H 04/13/17 05:45 MCHC 35 % (32-34) H 04/13/17 05:45 RDW 12.7 % (13.2-15.2) L 04/13/17 05:45 Plt Count 173 K/mm3 (140-440) 04/13/17 05:45 Lymph % (Auto) 10.6 % (13.4-35.0) L 04/13/17 05:45 Burke % (Auto) 11.5 % (0.0-7.3) H 04/13/17 05:45 Eos % (Auto) 2.2 % (0.0-4.3) 04/13/17 05:45 Baso % (Auto) 0.5 % (0.0-1.8) 04/13/17 05:45 Lymph # 0.9 K/mm3 (1.2-5.4) L 04/13/17 05:45 Burke # 1.0 K/mm3 (0.0-0.8) H 04/13/17 05:45 Eos # 0.2 K/mm3 (0.0-0.4) 04/13/17 05:45 Baso # 0.0 K/mm3 (0.0-0.1) 04/13/17 05:45 Seg Neutrophils % 75.2 % (40.0-70.0) H 04/13/17 05:45 Seg Neutrophils # 6.5 K/mm3 (1.8-7.7) 04/13/17 05:45 PT 13.6 Sec. (12.2-14.9) 04/13/17 14:29 INR 1.05 (0.87-1.13) 04/13/17 14:29 APTT 35.7 Sec. (24.2-36.6) 04/13/17 14:29 POC ABG pH 7.325 (7.35-7.45) L 04/05/17 17:59 POC ABG pCO2 34.2 (35-45) L 04/05/17 17:59 POC ABG pO2 132 (80-105) H 04/05/17 17:59 POC ABG HCO3 17.8 04/05/17 17:59 POC ABG Total CO2 19 04/05/17 17:59 POC ABG O2 Sat 99 04/05/17 17:59 POC ABG Base Excess -8 04/05/17 17:59 VBG pH 7.186 (7.320-7.420) L* 04/05/17 16:36 FiO2 28 % 04/05/17 17:59 Sodium 140 mmol/L (137-145) 04/17/17 06:35 Potassium 4.4 mmol/L (3.6-5.0) 04/17/17 06:35 Chloride 100.3 mmol/L (98-107) 04/17/17 06:35 Carbon Dioxide 27 mmol/L (22-30) 04/17/17 06:35 Anion Gap 17 mmol/L 04/17/17 06:35 BUN 35 mg/dL (9-20) H 04/17/17 06:35 Creatinine 5.3 mg/dL (0.8-1.5) H 04/17/17 06:35 Estimated GFR 14 ml/min 04/17/17 06:35 BUN/Creatinine Ratio 6.60 % 04/17/17 06:35 Glucose 102 mg/dL (75-100) H 04/17/17 06:35 POC Glucose 130 (70-105) H 04/05/17 16:55 Osmolality 308 Mosm/kg 04/06/17 20:24 Lactic Acid 2.00 mmol/L (0.7-2.0) 04/07/17 08:03 Uric Acid 9.2 mg/dL (3.5-7.6) H 04/07/17 08:02 Calcium 8.6 mg/dL (8.4-10.2) 04/17/17 06:35 Ionized Calcium 4.5 mg/dL (4.8-5.6) L 04/07/17 14:49 Total Bilirubin 1.20 mg/dL (0.1-1.2) 04/06/17 11:02 AST 160 units/L (5-40) H 04/06/17 11:02 ALT 48 units/L (7-56) 04/06/17 11:02 Alkaline Phosphatase 59 units/L (35-129) 04/06/17 11:02 Ammonia 76.0 umol/L (25-60) H 04/05/17 17:41 Total Creatine Kinase 145 units/L (55-170) 04/07/17 08:02 CK-MB (CK-2) 7.6 ng/mL (0.0-4.0) H 04/05/17 16:36 CK-MB (CK-2) Rel Index 0.6 (0-4) 04/05/17 16:36 Troponin T < 0.010 ng/mL (0.00-0.029) 04/08/17 01:43 C-Reactive Protein 5.10 mg/dL (0.00-1.30) H 04/13/17 14:29 Total Protein 6.1 g/dL (6.3-8.2) L D 04/06/17 11:02 Albumin 3.6 g/dL (3.9-5) L 04/06/17 11:02 Albumin/Globulin Ratio 1.4 % 04/06/17 11:02 TSH 1.700 mlU/mL (0.270-4.200) 04/05/17 16:36 Free T4 0.82 ng/dL (0.76-1.46) 04/05/17 16:36 Urine Color Red (Yellow) 04/06/17 12:44 Urine Turbidity Cloudy (Clear) 04/06/17 12:44 Urine pH 6.0 (5.0-7.0) 04/06/17 12:44 Ur Specific Decker 1.012 (1.003-1.030) 04/06/17 12:44 Urine Protein 100 mg/dl mg/dL (Negative) 04/06/17 12:44 Urine Glucose (UA) 50 mg/dL (Negative) 04/06/17 12:44 Urine Ketones Neg mg/dL (Negative) 04/06/17 12:44 Urine Blood Lg (Negative) 04/06/17 12:44 Urine Nitrite Neg (Negative) 04/06/17 12:44 Urine Bilirubin Neg (Negative) 04/06/17 12:44 Urine Urobilinogen < 2.0 mg/dL (<2.0) 04/06/17 12:44 Ur Leukocyte Esterase Mod (Negative) 04/06/17 12:44 Urine WBC (Auto) > 182.0 /HPF (0.0-6.0) H 04/06/17 12:44 Urine RBC (Auto) > 182.0 /HPF (0.0-6.0) 04/06/17 12:44 U Epithel Cells (Auto) 1.0 /HPF (0-13.0) 04/06/17 09:00 Urine Bacteria (Auto) 2+ /HPF (Negative) 04/06/17 12:44 Urine WBC Clumps 3+ /HPF 04/06/17 12:44 Urine Mucus 1+ /HPF 04/06/17 12:44 Urine Creatinine 87.4 mg/dL (0.1-20.0) H 04/06/17 12:44 Urine Sodium 73 mEq/L 04/06/17 12:44 Urine Total Protein 589 mg/dL (5-11.8) H 04/06/17 12:44 CSF Appearance Clear 04/13/17 Unknown CSF Color Colorless 04/13/17 Unknown CSF WBC 20 /mm3 (1-10) 04/13/17 Unknown CSF RBC 120 /mm3 (0-0) 04/13/17 Unknown CSF Comment No cells seen 04/13/17 Unknown CSF Pathologist Review C 04/13/17 Unknown CSF Glucose 54 mg/dL 04/13/17 Unknown CSF Total Protein 32 mg/dL 04/13/17 Unknown CSF VDRL Nonreactive (Nonreactive) 04/13/17 Unknown Random Vancomycin 16.3 ug/mL (0-40.0) 04/16/17 04:58 Urine Opiates Screen Presumptive negative 04/05/17 16:36 Urine Methadone Screen Presumptive negative 04/05/17 16:36 Ur Barbiturates Screen Presumptive negative 04/05/17 16:36 Ur Phencyclidine Scrn Presumptive negative 04/05/17 16:36 Ur Amphetamines Screen Presumptive positive 04/05/17 16:36 U Benzodiazepines Scrn Presumptive negative 04/05/17 16:36 Urine Cocaine Screen Presumptive positive 04/05/17 16:36 U Marijuana (THC) Screen Presumptive negative 04/05/17 16:36 Drugs of Abuse Note Disclamer 04/05/17 16:36 Plasma/Serum Alcohol < 0.01 gm% (0-0.07) 04/05/17 16:36 Immunofix Electrophor see below 04/06/17 20:24 BRE Screen Negative (Negative) 04/07/17 14:49 Proteinase 3 (PR3) Ab <1.0 AI (<1.0) 04/07/17 14:49 Myeloperoxidase Ab <1.0 AI (<1.0) 04/07/17 14:49 Complement C3 125 mg/dL (90-180) 04/10/17 11:35 Complement C4 30 mg/dL (16-47) 04/10/17 11:35 Hepatitis A IgM Ab Non-reactive (NonReactive) 04/06/17 20:24 Hep Bs Antigen Non-reactive (Negative) 04/06/17 20:24 Hep B Core IgM Ab Non-reactive (NonReactive) 04/06/17 20:24 Hepatitis C Antibody Non-reactive (NonReactive) 04/06/17 20:24 HIV 1&2 Antibody Rapid Non react (Non React) 04/10/17 13:21 HIV P24 Antigen Non react (Non React) 04/10/17 13:21 Miscellaneous Test Flexitest 1 H 04/14/17 Unknown
[2017-04-17 17:29] LABS: Hematocrit 24.1 % (35.5-45.6); Hemoglobin 8.4 gm/dl (11.8-15.2)
[2017-04-17] MEDS: ATIVAN IV PRN (21:27)
[2017-04-17] MEDS: LOVENOX SUB-Q SCH (21:28)
[2017-04-17] MEDS: VIBRAMYCIN PO SCH (21:28)
[2017-04-18] MEDS: FIORICET PO PRN ×3 (06:20→21:24)
[2017-04-18 08:09] LABS: BUN/Creatinine Ratio 8.3; Calcium 9.3 mg/dL (8.4-10.2); Chloride 104.8 mmol/L (98-107)
[2017-04-18] MEDS: NORMODYNE PO SCH ×3 (08:23→21:28)
[2017-04-18] MEDS: NORVASC PO SCH (09:32)
[2017-04-18] MEDS: PROTONIX PO SCH ×2 (09:32→21:24)
[2017-04-18] MEDS: VIBRAMYCIN PO SCH ×2 (09:32→21:24)
[2017-04-18] MEDS: ATIVAN IV PRN (09:59)
--- NOTE | 2017-04-18 11:32 | Progress Note ---
Assessment and Plan Assessment and plan: --Acute nonoliguric renal failure/secondary to ATN. sepsis , rhabdomyolysis. Nephrology following Hemodialysis per schedule 3 times a week, outpt HD scheduling per case management --Sepsis. Persistent fever, resolved Blood cultures are negative. Lumbar puncture negative Continued IV antibiotics. Echocardiogram; ejection fraction 50-55%, no evidence of endocarditis Vancomycin discontinued, continue Levaquin and doxycycline per ID --Migraine headache; on Fiorecet symptoms significantly improved --Hyperkalemia. Corrected --Rhabdomyolysis. Resolved --Substance abuse; cocaine and amphetamines, counseling done patient strongly advised to quit --Hypernatremia. Resolved. --UTI. Levaquin per ID. Urine and blood cultures are negative. --Toxic metabolic Encephalopathy. Resolved --Abdominal pain. Resolved --Accelerated hypertension. Moderate control, continue current antihypertensive some when necessary medications --Schizoaffective disorder/substance-induced psychosis. Psychiatry following. -- DVT prophylaxis; Lovenox renal dose Discharge planning per Case management, pending outpatient HD scheduling Plan of care discussed with the patient and the family member at the bedside History Interval history: Patient feels slightly better no new complaints Alert awake oriented 3 not in acute distress Hospitalist Physical - Constitutional Vitals: Temp Pulse Resp BP Pulse Ox 99.2 F 81 18 161/86 98 04/18/17 07:40 04/18/17 07:40 04/18/17 07:40 04/18/17 07:40 04/18/17 07:40 General appearance: Present: no acute distress, well-nourished, obese - EENT Eyes: Present: PERRL, EOM intact - Neck Neck: Present: supple, normal ROM - Respiratory Respiratory effort: normal Respiratory: bilateral: diminished, negative: rales, rhonchi, wheezing - Cardiovascular Rhythm: regular Heart Sounds: Present: S1 & S2 - Extremities Extremities: no ischemia, No edema - Abdominal General gastrointestinal: soft, non-tender, non-distended, normal bowel sounds - Integumentary Integumentary: Present: clear, warm - Psychiatric Psychiatric: appropriate mood/affect, cooperative - Neurologic Neurologic: CNII-XII intact, moves all extremities Results - Labs CBC & Chem 7: 04/17/17 17:14 04/18/17 07:22 Labs: Laboratory Last Values WBC 8.7 K/mm3 (4.5-11.0) 04/13/17 05:45 RBC 2.71 M/mm3 (3.65-5.03) L 04/13/17 05:45 Hgb 8.4 gm/dl (11.8-15.2) L 04/17/17 17:14 Hct 24.1 % (35.5-45.6) L 04/17/17 17:14 MCV 96 fl (84-94) H 04/13/17 05:45 MCH 33 pg (28-32) H 04/13/17 05:45 MCHC 35 % (32-34) H 04/13/17 05:45 RDW 12.7 % (13.2-15.2) L 04/13/17 05:45 Plt Count 173 K/mm3 (140-440) 04/13/17 05:45 Lymph % (Auto) 10.6 % (13.4-35.0) L 04/13/17 05:45 [place] % (Auto) 11.5 % (0.0-7.3) H 04/13/17 05:45 Eos % (Auto) 2.2 % (0.0-4.3) 04/13/17 05:45 Baso % (Auto) 0.5 % (0.0-1.8) 04/13/17 05:45 Lymph # 0.9 K/mm3 (1.2-5.4) L 04/13/17 05:45 [place] # 1.0 K/mm3 (0.0-0.8) H 04/13/17 05:45 Eos # 0.2 K/mm3 (0.0-0.4) 04/13/17 05:45 Baso # 0.0 K/mm3 (0.0-0.1) 04/13/17 05:45 Seg Neutrophils % 75.2 % (40.0-70.0) H 04/13/17 05:45 Seg Neutrophils # 6.5 K/mm3 (1.8-7.7) 04/13/17 05:45 PT 13.6 Sec. (12.2-14.9) 04/13/17 14:29 INR 1.05 (0.87-1.13) 04/13/17 14:29 APTT 35.7 Sec. (24.2-36.6) 04/13/17 14:29 POC ABG pH 7.325 (7.35-7.45) L 04/05/17 17:59 POC ABG pCO2 34.2 (35-45) L 04/05/17 17:59 POC ABG pO2 132 (80-105) H 04/05/17 17:59 POC ABG HCO3 17.8 04/05/17 17:59 POC ABG Total CO2 19 04/05/17 17:59 POC ABG O2 Sat 99 04/05/17 17:59 POC ABG Base Excess -8 04/05/17 17:59 VBG pH 7.186 (7.320-7.420) L* 04/05/17 16:36 FiO2 28 % 04/05/17 17:59 Sodium 144 mmol/L (137-145) 04/18/17 07:22 Potassium 5.0 mmol/L (3.6-5.0) 04/18/17 07:22 Chloride 104.8 mmol/L (98-107) 04/18/17 07:22 Carbon Dioxide 27 mmol/L (22-30) 04/18/17 07:22 Anion Gap 17 mmol/L 04/18/17 07:22 BUN 44 mg/dL (9-20) H 04/18/17 07:22 Creatinine 5.3 mg/dL (0.8-1.5) H 04/18/17 07:22 Estimated GFR 14 ml/min 04/18/17 07:22 BUN/Creatinine Ratio 8.30 % 04/18/17 07:22 Glucose 106 mg/dL (75-100) H 04/18/17 07:22 POC Glucose 130 (70-105) H 04/05/17 16:55 Osmolality 308 Mosm/kg 04/06/17 20:24 Lactic Acid 2.00 mmol/L (0.7-2.0) 04/07/17 08:03 Uric Acid 9.2 mg/dL (3.5-7.6) H 04/07/17 08:02 Calcium 9.3 mg/dL (8.4-10.2) 04/18/17 07:22 Ionized Calcium 4.5 mg/dL (4.8-5.6) L 04/07/17 14:49 Total Bilirubin 1.20 mg/dL (0.1-1.2) 04/06/17 11:02 AST 160 units/L (5-40) H 04/06/17 11:02 ALT 48 units/L (7-56) 04/06/17 11:02 Alkaline Phosphatase 59 units/L (35-129) 04/06/17 11:02 Ammonia 76.0 umol/L (25-60) H 04/05/17 17:41 Total Creatine Kinase 145 units/L (55-170) 04/07/17 08:02 CK-MB (CK-2) 7.6 ng/mL (0.0-4.0) H 04/05/17 16:36 CK-MB (CK-2) Rel Index 0.6 (0-4) 04/05/17 16:36 Troponin T < 0.010 ng/mL (0.00-0.029) 04/08/17 01:43 C-Reactive Protein 5.10 mg/dL (0.00-1.30) H 04/13/17 14:29 Total Protein 6.1 g/dL (6.3-8.2) L D 04/06/17 11:02 Albumin 3.6 g/dL (3.9-5) L 04/06/17 11:02 Albumin/Globulin Ratio 1.4 % 04/06/17 11:02 TSH 1.700 mlU/mL (0.270-4.200) 04/05/17 16:36 Free T4 0.82 ng/dL (0.76-1.46) 04/05/17 16:36 Urine Color Red (Yellow) 04/06/17 12:44 Urine Turbidity Cloudy (Clear) 04/06/17 12:44 Urine pH 6.0 (5.0-7.0) 04/06/17 12:44 Ur Specific [place] 1.012 (1.003-1.030) 04/06/17 12:44 Urine Protein 100 mg/dl mg/dL (Negative) 04/06/17 12:44 Urine Glucose (UA) 50 mg/dL (Negative) 04/06/17 12:44 Urine Ketones Neg mg/dL (Negative) 04/06/17 12:44 Urine Blood Lg (Negative) 04/06/17 12:44 Urine Nitrite Neg (Negative) 04/06/17 12:44 Urine Bilirubin Neg (Negative) 04/06/17 12:44 Urine Urobilinogen < 2.0 mg/dL (<2.0) 04/06/17 12:44 Ur Leukocyte Esterase Mod (Negative) 04/06/17 12:44 Urine WBC (Auto) > 182.0 /HPF (0.0-6.0) H 04/06/17 12:44 Urine RBC (Auto) > 182.0 /HPF (0.0-6.0) 04/06/17 12:44 U Epithel Cells (Auto) 1.0 /HPF (0-13.0) 04/06/17 09:00 Urine Bacteria (Auto) 2+ /HPF (Negative) 04/06/17 12:44 Urine WBC Clumps 3+ /HPF 04/06/17 12:44 Urine Mucus 1+ /HPF 04/06/17 12:44 Urine Creatinine 87.4 mg/dL (0.1-20.0) H 04/06/17 12:44 Urine Sodium 73 mEq/L 04/06/17 12:44 Urine Total Protein 589 mg/dL (5-11.8) H 04/06/17 12:44 CSF Appearance Clear 04/13/17 Unknown CSF Color Colorless 04/13/17 Unknown CSF WBC 20 /mm3 (1-10) 04/13/17 Unknown CSF RBC 120 /mm3 (0-0) 04/13/17 Unknown CSF Comment No cells seen 04/13/17 Unknown CSF Pathologist Review C 04/13/17 Unknown CSF Glucose 54 mg/dL 04/13/17 Unknown CSF Total Protein 32 mg/dL 04/13/17 Unknown CSF VDRL Nonreactive (Nonreactive) 04/13/17 Unknown Random Vancomycin 16.3 ug/mL (0-40.0) 04/16/17 04:58 Urine Opiates Screen Presumptive negative 04/05/17 16:36 Urine Methadone Screen Presumptive negative 04/05/17 16:36 Ur Barbiturates Screen Presumptive negative 04/05/17 16:36 Ur Phencyclidine Scrn Presumptive negative 04/05/17 16:36 Ur Amphetamines Screen Presumptive positive 04/05/17 16:36 U Benzodiazepines Scrn Presumptive negative 04/05/17 16:36 Urine Cocaine Screen Presumptive positive 04/05/17 16:36 U Marijuana (THC) Screen Presumptive negative 04/05/17 16:36 Drugs of Abuse Note Disclamer 04/05/17 16:36 Plasma/Serum Alcohol < 0.01 gm% (0-0.07) 04/05/17 16:36 Immunofix Electrophor see below 04/06/17 20:24 BRE Screen Negative (Negative) 04/07/17 14:49 Proteinase 3 (PR3) Ab <1.0 AI (<1.0) 04/07/17 14:49 Myeloperoxidase Ab <1.0 AI (<1.0) 04/07/17 14:49 Complement C3 125 mg/dL (90-180) 04/10/17 11:35 Complement C4 30 mg/dL (16-47) 04/10/17 11:35 Hepatitis A IgM Ab Non-reactive (NonReactive) 04/06/17 20:24 Hep Bs Antigen Non-reactive (Negative) 04/06/17 20:24 Hep B Core IgM Ab Non-reactive (NonReactive) 04/06/17 20:24 Hepatitis C Antibody Non-reactive (NonReactive) 04/06/17 20:24 HIV 1&2 Antibody Rapid Non react (Non React) 04/10/17 13:21 HIV P24 Antigen Non react (Non React) 04/10/17 13:21 Miscellaneous Test Flexitest 1 04/15/17 11:32
--- NOTE | 2017-04-18 12:42 | Progress Note ---
Assessment and Plan Assessment: * Nonoliguric acute kidney injury attributed to ATN vs other --Work up negative to date - ANCA, C3/C4, HIV, Hepatitis, SPEP * Polysubstance abuse * Hypertension * Rhabdomyolysis, mild - resolved * Proteinuria * Schizoaffective DO * Chronic NSAID use * Persistent low grade fever * gi bleed Plan: * Hemodialysis MWF * ID following, recommendations reviewed * cr is same today as yesterday, monitor for renal recovery * recheck 24hr crcl * Continue antiHTN medications * Empiric abx per ID * Avoid potential nephrotoxins * Dose medications for renal function * Strict I/O * Psychiatry following Subjective Date of service: 04/18/17 Principal diagnosis: Sepsis Syndrome; Chest Pains; Bilateral Rib Fractures Interval history: resting well in bed Objective - Exam Narrative Exam: General appearance: well-developed, well-nourished EENT: ATNC Respiratory: Present: Clear to Ascultation Cardiology: regular, S1S2 Gastrointestinal: normal, no tenderness, no distended Integumentary: no rash Musculoskeletal: other (no edema) Psychiatric: cooperative - Vital Signs Vital signs: Vital Signs - 12hr 04/18/17 04/18/17 04/18/17 04:53 07:40 11:13 Temperature 99.1 F 99.2 F 98.0 F Pulse Rate 78 81 Respiratory 18 18 18 Rate Blood Pressure 146/91 161/86 145/94 O2 Sat by Pulse 97 98 Oximetry - Lab 04/17/17 17:14 04/18/17 07:22 Most recent lab results Calcium 9.3 mg/dL (8.4-10.2) 04/18/17 07:22 Urine Creatinine 87.4 mg/dL (0.1-20.0) H 04/06/17 12:44 Urine Sodium 73 mEq/L 04/06/17 12:44 Urine Total Protein 589 mg/dL (5-11.8) H 04/06/17 12:44
--- NOTE | 2017-04-18 15:38 | Progress Note ---
Assessment and Plan Assessment: 1) Sepsis: resolved. Etiology - unclear ? UTI ? viral -HIV and BRE negative -CRP=5.1 -Procal=0.4 -C3/C4 normal -CSF with 20 wbc but hemorragic, protein and glucose normal, not consistent with meningitis 2) UTI: initial UA was negative. Repeat positive. Urine cx negative -CT abd showed moderate to severe sixto perinephric stranding 3) Headache / AMS - resolved 4) Polysubstance abuse +cocaine +meth 5) Bilateral foot pustular rash ? traumatic lesions infected 6) JULIA-worsening on HD 7) Abdominal pain ? -Viral hepatitis negative -CT abd showed moderate to severe sixto perinephric stranding Plan: -continue doxycycline 100 and cipro 500 mg po q48h total 10 days to cover foot pustules and UTI -wound care -CXR continues to c/o SOB and pleuresia I am signing off Thank you Dr Guadalupe for your consultation, will follow up with you. Shirley Malloy MD Infectious Diseases Specialist [facility] ([facility]) M [phone] O [phone] Subjective Date of service: 04/18/17 Principal diagnosis: Sepsis Syndrome; Chest Pains; Bilateral Rib Fractures Interval history: Feels ok still c/o SOB and chest pain upon inspiration. . No fever. Current Antimicrobials: levaquin QOD doxycycline 04/15 Previous Antimicrobials: levaquin 04/10 clindamycin 04/13 vanco 04/14 ceftriaxone 04/13 Microbiology: Blood cultures: 04/05 ngtd 04/13 ngtd Urine cultures: 04/05 neg 04/11 neg CSF 04/13 neg Objective - Exam Narrative Exam: General appearance: Alert in NAD, conversant Eyes: anicteric sclerae, moist conjunctivae; no lid-lag; PERRLA HENT: Atraumatic; oropharynx clear with moist mucous membranes and no mucosal ulcerations/no oral thrush; normal hard and soft palate. Normal external ears. Neck: Trachea midline; supple, no thyromegaly or lymphadenopathy Lungs: bibasilar crackles CV: RRR, no murmurs Abdomen: Soft, +diffuse tenderness sixto Extremities: No peripheral edema or extremity lymphadenopathy Skin: sixto foot pustular rash resolved and sixto sole desquamation Psych: Appropriate affect, alert and oriented to person, place and time. Neuro: alert and oriented x 3. Moving all extermities Lines: No CVL / PICC - Constitutional Vitals: Vital Signs Temp Pulse Resp BP Pulse Ox 98.0 F 81 18 145/94 98 04/18/17 11:13 04/18/17 07:40 04/18/17 11:13 04/18/17 11:13 04/18/17 07:40 Temperature -Last 24 Hours Temperature 98.0 F Temperature 99.2 F Temperature 99.1 F Temperature 99.3 F Temperature 99.2 F - Labs CBC & Chem 7: 04/17/17 17:14 04/18/17 07:22 Labs: Abnormal lab results 04/17/17 04/18/17 Range/Units 17:14 07:22 Hgb 8.4 L (11.8-15.2) gm/dl Hct 24.1 L (35.5-45.6) % BUN 44 H (9-20) mg/dL Creatinine 5.3 H (0.8-1.5) mg/dL Glucose 106 H (75-100) mg/dL
--- NOTE | 2017-04-18 18:09 | XRay Report ---
FINAL REPORT PROCEDURE: XR CHEST ROUTINE 2V TECHNIQUE: PA and lateral chest radiographs were obtained. CPT 84185 HISTORY: c/o SOB and chest pressure eval for volume overload COMPARISON: No prior studies are available for comparison. FINDINGS: Heart: Prominent cardiac silhouette. Mediastinum/Vessels: Mildly prominent central vessels. Lungs/Pleural space: Patchy airspace opacities are seen in the right upper lung and right lower lung. Probable small pleural effusions. No pneumothorax is seen. Bony thorax: No acute osseous abnormality. Other: Large-bore right central venous catheter tip is in the proximal right atrium IMPRESSION: Patchy airspace opacities in the right lung may be related to edema or infectious process. Probable small pleural effusions..
[2017-04-18] MEDS: MORPHINE IV PRN (19:05)
[2017-04-18] MEDS: LOVENOX SUB-Q SCH (21:24)
[2017-04-19] MEDS: ATIVAN PO PRN (03:41)
[2017-04-19 07:41] LABS: Basophils % (Auto) 1.1 % (0.0-1.8); Eosinophils % (Auto) 2.4 % (0.0-4.3); Hematocrit 22.1 % (35.5-45.6); Hemoglobin 7.5 gm/dl (11.8-15.2); Mean Corpuscular HGB Conc 34 % (32-34); Mean Corpuscular Hemoglobin 33 pg (28-32); Mean Corpuscular Volume 97 fl (84-94); Platelet Count 315 K/mm3 (140-440); Red Blood Count 2.27 M/mm3 (3.65-5.03); Red Cell Distribution Width 12.4 % (13.2-15.2); White Blood Count 9.7 K/mm3 (4.5-11.0)
[2017-04-19 07:59] LABS: Calcium 9.2 mg/dL (8.4-10.2); Chloride 107.5 mmol/L (98-107); Potassium 4.7 mmol/L (3.6-5.0)
[2017-04-19] MEDS: NORMODYNE PO SCH ×4 (09:37→21:22)
--- NOTE | 2017-04-19 10:09 | Progress Note ---
Assessment and Plan Assessment: * Nonoliguric acute kidney injury attributed to ATN vs other --Work up negative to date - ANCA, C3/C4, HIV, Hepatitis, SPEP * Polysubstance abuse * Hypertension * Rhabdomyolysis, mild - resolved * Proteinuria * Schizoaffective DO * Chronic NSAID use * Persistent low grade fever * gi bleed Plan: * Hemodialysis on hold today * cr is better, follow up 24hrcrcl * if continues to improve will remove vasc cath * Continue antiHTN medications * Avoid potential nephrotoxins * Dose medications for renal function * Strict I/O Subjective Date of service: 04/19/17 Principal diagnosis: Sepsis Syndrome; Chest Pains; Bilateral Rib Fractures Interval history: resting well in bed Objective - Exam Narrative Exam: General appearance: well-developed, well-nourished EENT: ATNC Respiratory: Present: Clear to Ascultation Cardiology: regular, S1S2 Gastrointestinal: normal, no tenderness, no distended Integumentary: no rash Musculoskeletal: other (no edema) Psychiatric: cooperative - Vital Signs Vital signs: Vital Signs - 12hr 04/18/17 04/18/17 04/19/17 22:41 23:39 03:45 Temperature 99.3 F 99.3 F Pulse Rate 79 77 Respiratory 20 14 16 Rate Blood Pressure 151/93 146/85 O2 Sat by Pulse 98 98 Oximetry 04/19/17 07:32 Temperature 99.1 F Pulse Rate 79 Respiratory 20 Rate Blood Pressure 146/80 O2 Sat by Pulse 97 Oximetry - Lab 04/19/17 07:11 04/19/17 07:11 Most recent lab results Calcium 9.2 mg/dL (8.4-10.2) 04/19/17 07:11 Urine Creatinine 87.4 mg/dL (0.1-20.0) H 04/06/17 12:44 Urine Sodium 73 mEq/L 04/06/17 12:44 Urine Total Protein 589 mg/dL (5-11.8) H 04/06/17 12:44
[2017-04-19] MEDS: VIBRAMYCIN PO SCH ×2 (10:18→21:22)
[2017-04-19] MEDS: NORVASC PO SCH (10:19)
[2017-04-19] MEDS: MORPHINE IV PRN (10:19)
[2017-04-19] MEDS: PROTONIX PO SCH ×2 (10:19→21:26)
--- NOTE | 2017-04-19 11:07 | Gastroenterology Consultation ---
<ETHAN,KAEL JimenezValerie - Last Filed: 04/19/17 11:27> History of Present Illness - Reason for Consult Consult date: 04/19/17 anemia, rectal bleeding Requesting physician: CLAUDETTE ANDINO - History of Present Illness Patient is a 42 y/o male with h/o bipolar and schizoaffective disorder who was admitted for AMS, sepsis, acute respiratory failure, and acute kidney failure. GI has been consulted for anemia and rectal bleeding. This morning pt was resting in bed. No acute distress noted. Family at bedside. Pt was A&O x 3 and able to provide history. He reports no previous hx of anemia. He states he has been having bright red blood with BMs x 2-3 days. He reports BM overnight was a darker maroon color. No active signs of bleeding this am. He also admits to occasional nausea associated with his migraines but denies CP, SOB, abd pain, dysphagia, vomiting, hematemesis, melena, diarrhea, or constipation. Fhx of father and uncle with possible colon cancer. No hx of liver disease. Takes Goody 's powder daily with other NSAIDS PRN. No previous EGD or colonoscopy. Past History Past Medical History: hypertension, other (Kidney Disease, bipolar, schizoaffective disorder) Past Surgical History: Other (back surgery x 2) Social history: lives with family, other (substance abuse) Family history: cancer (father and uncle with possible colon cancer) Medications and Allergies Allergies Allergy/AdvReac Type Severity Reaction Status Date / Time No Known Allergies Allergy Verified 04/05/17 23:01 Home Medications Medication Instructions Recorded Confirmed Last Taken Type No Known Home Medications [No 04/11/17 04/11/17 Unknown History Reported Home Medications] Active Meds: Active Medications Acetaminophen (Tylenol) 325 mg PO Q6H PRN PRN Reason: Pain, Mild (1-3) Last Admin: 04/16/17 17:31 Dose: 325 mg Acetaminophen/Butalbital/Caffeine (Fioricet) 1 tab PO Q4H PRN PRN Reason: Headache Last Admin: 04/18/17 21:24 Dose: 1 tab Albuterol (Proventil) 2.5 mg IH Q3HRT PRN PRN Reason: Shortness Of Breath Last Admin: 04/16/17 01:54 Dose: 2.5 mg Amlodipine Besylate (Norvasc) 10 mg PO QDAY [facility] Last Admin: 04/19/17 10:19 Dose: 10 mg Diphenhydramine HCl (Benadryl) 25 mg IV Q6H PRN PRN Reason: Itching Last Admin: 04/16/17 23:16 Dose: 25 mg Doxycycline Hyclate (Vibramycin) 100 mg PO BID [facility] Last Admin: 04/19/17 10:18 Dose: 100 mg Heparin Sodium (Porcine) (Heparin) 5,000 unit IV NIYA PRN PRN Reason: hemodialysis Last Admin: 04/16/17 14:54 Dose: 5,000 unit Hydralazine HCl (Apresoline) 10 mg IV Q4HR PRN PRN Reason: HTN BP>160/90 Sodium Chloride (Nacl 0.9%) 100 mls @ 999 mls/hr IV NIYA PRN PRN Reason: Hypotension Sodium Chloride (Nacl 0.45% 1000 Ml) 1,000 mls @ 100 mls/hr IV DIRECT [facility] Labetalol HCl (Normodyne) 400 mg PO TID [facility] Last Admin: 04/19/17 10:18 Dose: 400 mg Levofloxacin (Levaquin) 500 mg PO Q48H [facility] Last Admin: 04/17/17 15:30 Dose: 500 mg Lorazepam (Ativan) 1 mg PO Q8H PRN PRN Reason: Agitation Last Admin: 04/19/17 03:41 Dose: 1 mg Morphine Sulfate (Morphine) 1 mg IV Q8H PRN PRN Reason: Pain, Moderate (4-6) Last Admin: 04/19/17 10:19 Dose: 1 mg Ondansetron HCl (Zofran) 4 mg IV Q4H PRN PRN Reason: Nausea Oxycodone/Acetaminophen (Percocet 5/325) 1 tab PO Q8H PRN PRN Reason: Pain, Moderate (4-6) Last Admin: 04/17/17 09:31 Dose: 1 tab Pantoprazole Sodium (Protonix) 40 mg PO BID [facility] Last Admin: 04/19/17 10:19 Dose: 40 mg Polyethylene Glycol (Miralax 3350) 17 gm PO BID PRN PRN Reason: Constipation Last Admin: 04/11/17 22:27 Dose: 17 gm Review of Systems - Review of Systems All systems: negative Gastrointestinal: hematochezia Exam - Constitutional Vital Signs: Temp Pulse Resp BP Pulse Ox 99.1 F 79 20 146/80 97 04/19/17 07:32 04/19/17 07:32 04/19/17 07:32 04/19/17 07:32 04/19/17 07:32 General appearance: no acute distress, well-nourished - EENT Eyes: PERRL, EOM intact ENT: hearing intact - Respiratory Respiratory: bilateral: CTA - Cardiovascular Rhythm: regular Heart Sounds: Present: S1 & S2 Extremities: No edema - Gastrointestinal General gastrointestinal: Present: soft, tender (generalized), non-distended, normal bowel sounds - Integumentary Integumentary: Present: warm, dry - Neurologic Neurological: alert and oriented x3 - Labs CBC & Chem 7: 04/19/17 07:11 04/19/17 07:11 Lab Results: Laboratory Results - last 24 hr 04/19/17 04/19/17 07:11 07:11 WBC 9.7 RBC 2.27 L Hgb 7.5 L Hct 22.1 L MCV 97 H MCH 33 H MCHC 34 RDW 12.4 L Plt Count 315 Lymph % (Auto) 10.3 L [place] % (Auto) 5.7 Eos % (Auto) 2.4 Baso % (Auto) 1.1 Lymph # 1.0 L [place] # 0.6 Eos # 0.2 Baso # 0.1 Seg Neutrophils % 80.5 H Seg Neutrophils # 7.8 H Sodium 146 H Potassium 4.7 Chloride 107.5 H Carbon Dioxide 24 Anion Gap 19 BUN 47 H Creatinine 4.7 H Estimated GFR 17 BUN/Creatinine Ratio 10.00 Glucose 96 Calcium 9.2 Assessment and Plan 1.anemia 2.hematochezia 3.sepsis 4.Acute nonoliguric renal failure -HGB 7.5-trending down -continue to monitor H/H and transfuse as needed -last BM overnight with maroon stool and BRBPR -hemodynamically stable -continue PPI and supportive care -clear liquid diet today then NPO after MN -will schedule for EGD/colonoscopy in am -will follow <VITOR JORGE - Last Filed: 04/19/17 12:02> Medications and Allergies Active Meds: Active Medications Acetaminophen (Tylenol) 325 mg PO Q6H PRN PRN Reason: Pain, Mild (1-3) Last Admin: 09/29/17 17:31 Dose: 325 mg Acetaminophen/Butalbital/Caffeine (Fioricet) 1 tab PO Q4H PRN PRN Reason: Headache Last Admin: 04/18/17 21:24 Dose: 1 tab Albuterol (Proventil) 2.5 mg IH Q3HRT PRN PRN Reason: Shortness Of Breath Last Admin: 04/16/17 01:54 Dose: 2.5 mg Amlodipine Besylate (Norvasc) 10 mg PO QDAY [facility] Last Admin: 04/19/17 10:19 Dose: 10 mg Clonazepam (Klonopin) 1 mg PO QHS [facility] Diphenhydramine HCl (Benadryl) 25 mg IV Q6H PRN PRN Reason: Itching Last Admin: 04/16/17 23:16 Dose: 25 mg Doxycycline Hyclate (Vibramycin) 100 mg PO BID [facility] Last Admin: 04/19/17 10:18 Dose: 100 mg Heparin Sodium (Porcine) (Heparin) 5,000 unit IV NIYA PRN PRN Reason: hemodialysis Last Admin: 04/16/17 14:54 Dose: 5,000 unit Hydralazine HCl (Apresoline) 10 mg IV Q4HR PRN PRN Reason: HTN BP>160/90 Sodium Chloride (Nacl 0.9%) 100 mls @ 999 mls/hr IV NIYA PRN PRN Reason: Hypotension Sodium Chloride (Nacl 0.45% 1000 Ml) 1,000 mls @ 100 mls/hr IV DIRECT [facility] Labetalol HCl (Normodyne) 400 mg PO TID [facility] Last Admin: 04/19/17 10:18 Dose: 400 mg Levofloxacin (Levaquin) 500 mg PO Q48H [facility] Last Admin: 04/17/17 15:30 Dose: 500 mg Lorazepam (Ativan) 1 mg PO Q8H PRN PRN Reason: Agitation Last Admin: 04/19/17 03:41 Dose: 1 mg Morphine Sulfate (Morphine) 1 mg IV Q8H PRN PRN Reason: Pain, Moderate (4-6) Last Admin: 04/19/17 10:19 Dose: 1 mg Ondansetron HCl (Zofran) 4 mg IV Q4H PRN PRN Reason: Nausea Oxycodone/Acetaminophen (Percocet 5/325) 1 tab PO Q8H PRN PRN Reason: Pain, Moderate (4-6) Last Admin: 04/17/17 09:31 Dose: 1 tab Pantoprazole Sodium (Protonix) 40 mg PO BID [facility] Last Admin: 04/19/17 10:19 Dose: 40 mg Polyethylene Glycol (Miralax 3350) 17 gm PO BID PRN PRN Reason: Constipation Last Admin: 04/11/17 22:27 Dose: 17 gm Polyethylene Glycol/Electrolytes (Golytely) 4,000 ml PO ONCE ONE Stop: 04/19/17 16:01 Exam - Constitutional Vital Signs: Temp Pulse Resp BP Pulse Ox 98.9 F 76 20 145/88 98 04/19/17 11:29 04/19/17 11:29 04/19/17 11:29 04/19/17 11:29 04/19/17 11:29 - Labs CBC & Chem 7: 04/19/17 07:11 04/19/17 07:11 Lab Results: Laboratory Results - last 24 hr 04/19/17 04/19/17 07:11 07:11 WBC 9.7 RBC 2.27 L Hgb 7.5 L Hct 22.1 L MCV 97 H MCH 33 H MCHC 34 RDW 12.4 L Plt Count 315 Lymph % (Auto) 10.3 L [place] % (Auto) 5.7 Eos % (Auto) 2.4 Baso % (Auto) 1.1 Lymph # 1.0 L [place] # 0.6 Eos # 0.2 Baso # 0.1 Seg Neutrophils % 80.5 H Seg Neutrophils # 7.8 H Sodium 146 H Potassium 4.7 Chloride 107.5 H Carbon Dioxide 24 Anion Gap 19 BUN 47 H Creatinine 4.7 H Estimated GFR 17 BUN/Creatinine Ratio 10.00 Glucose 96 Calcium 9.2 Assessment and Plan - Patient Problems (1) GI bleeding Current Visit: Yes Status: Acute Qualifiers: GI bleed type/associated pathology: G Gastritis type: G Plan to address problem: The patient was personally seen and examined by myself. The GI care plan was discussed for EGD and colonoscopy tomorrow to evaluate bleeding and severe anemia. He has a FH of colon cancer, his father.
[2017-04-19] MEDS: NACL 0.45% 1000 ML 1,000 ML IV SCH ×2 (11:30→21:27)
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
[2017-04-19] MEDS: FIORICET PO PRN ×3 (12:02→22:39)
[2017-04-19] MEDS: LEVAQUIN PO SCH (14:37)
[2017-04-19] MEDS ORDERED: GOLYTELY PO ONE (16:00)
--- NOTE | 2017-04-19 19:35 | Progress Note ---
Assessment and Plan Assessment and plan: --Rectal bleeding/anemia Closely monitor H&H and transfuse as needed, GI evaluation for possible endoscopy, DC anticoagulants --Acute nonoliguric renal failure/secondary to ATN. sepsis , rhabdomyolysis. Nephrology following Hemodialysis per schedule 3 times a week, outpt HD scheduling per case management --Sepsis. Persistent fever, resolved Blood cultures are negative. Lumbar puncture negative Continued IV antibiotics. Echocardiogram; ejection fraction 50-55%, no evidence of endocarditis Vancomycin discontinued, continue Levaquin and doxycycline per ID --Migraine headache; on Fiorecet symptoms significantly improved --Hyperkalemia. Corrected --Rhabdomyolysis. Resolved --Substance abuse; cocaine and amphetamines, counseling done patient strongly advised to quit --Hypernatremia. Resolved. --UTI. Levaquin per ID. Urine and blood cultures are negative. --Toxic metabolic Encephalopathy. Resolved --Abdominal pain. Resolved --Accelerated hypertension. Moderate control, continue current antihypertensive some when necessary medications --Schizoaffective disorder/substance-induced psychosis. Psychiatry following. -- DVT prophylaxis; Lovenox renal dose Follow-up GI evaluation and recommendations DC planning per case management Patient is from out of town , planning to set up HD in his hometown when medically stable Plan of care discussed with the patient and the family member at the bedside History Interval history: Patient seen and examined in his room this morning medical records reviewed Complaints of rectal bleeding, stool for occult blood positive Anemia with significant drop in H&H not in acute distress Hospitalist Physical - Constitutional Vitals: Temp Pulse Resp BP Pulse Ox 98.4 F 73 20 142/88 98 04/19/17 15:58 04/19/17 15:58 04/19/17 15:58 04/19/17 15:58 04/19/17 15:58 General appearance: Present: no acute distress, well-nourished, obese - EENT Eyes: Present: PERRL, EOM intact - Neck Neck: Present: supple, normal ROM - Respiratory Respiratory effort: normal Respiratory: bilateral: diminished, negative: rales, rhonchi, wheezing - Cardiovascular Rhythm: regular Heart Sounds: Present: S1 & S2 - Extremities Extremities: no ischemia, No edema - Abdominal General gastrointestinal: soft, non-tender, non-distended, normal bowel sounds - Integumentary Integumentary: Present: clear, warm - Psychiatric Psychiatric: appropriate mood/affect, cooperative - Neurologic Neurologic: CNII-XII intact, moves all extremities Results - Labs CBC & Chem 7: 04/19/17 07:11 04/19/17 07:11 Labs: Laboratory Last Values WBC 9.7 K/mm3 (4.5-11.0) 04/19/17 07:11 RBC 2.27 M/mm3 (3.65-5.03) L 04/19/17 07:11 Hgb 7.5 gm/dl (11.8-15.2) L 04/19/17 07:11 Hct 22.1 % (35.5-45.6) L 04/19/17 07:11 MCV 97 fl (84-94) H 04/19/17 07:11 MCH 33 pg (28-32) H 04/19/17 07:11 MCHC 34 % (32-34) 04/19/17 07:11 RDW 12.4 % (13.2-15.2) L 04/19/17 07:11 Plt Count 315 K/mm3 (140-440) 04/19/17 07:11 Lymph % (Auto) 10.3 % (13.4-35.0) L 04/19/17 07:11 [place] % (Auto) 5.7 % (0.0-7.3) 04/19/17 07:11 Eos % (Auto) 2.4 % (0.0-4.3) 04/19/17 07:11 Baso % (Auto) 1.1 % (0.0-1.8) 04/19/17 07:11 Lymph # 1.0 K/mm3 (1.2-5.4) L 04/19/17 07:11 [place] # 0.6 K/mm3 (0.0-0.8) 04/19/17 07:11 Eos # 0.2 K/mm3 (0.0-0.4) 04/19/17 07:11 Baso # 0.1 K/mm3 (0.0-0.1) 04/19/17 07:11 Seg Neutrophils % 80.5 % (40.0-70.0) H 04/19/17 07:11 Seg Neutrophils # 7.8 K/mm3 (1.8-7.7) H 04/19/17 07:11 PT 13.6 Sec. (12.2-14.9) 04/13/17 14:29 INR 1.05 (0.87-1.13) 04/13/17 14:29 APTT 35.7 Sec. (24.2-36.6) 04/13/17 14:29 POC ABG pH 7.325 (7.35-7.45) L 04/05/17 17:59 POC ABG pCO2 34.2 (35-45) L 04/05/17 17:59 POC ABG pO2 132 (80-105) H 04/05/17 17:59 POC ABG HCO3 17.8 04/05/17 17:59 POC ABG Total CO2 19 04/05/17 17:59 POC ABG O2 Sat 99 04/05/17 17:59 POC ABG Base Excess -8 04/05/17 17:59 VBG pH 7.186 (7.320-7.420) L* 04/05/17 16:36 FiO2 28 % 04/05/17 17:59 Sodium 146 mmol/L (137-145) H 04/19/17 07:11 Potassium 4.7 mmol/L (3.6-5.0) 04/19/17 07:11 Chloride 107.5 mmol/L (98-107) H 04/19/17 07:11 Carbon Dioxide 24 mmol/L (22-30) 04/19/17 07:11 Anion Gap 19 mmol/L 04/19/17 07:11 BUN 47 mg/dL (9-20) H 04/19/17 07:11 Creatinine 4.7 mg/dL (0.8-1.5) H 04/19/17 07:11 Estimated GFR 17 ml/min 04/19/17 07:11 BUN/Creatinine Ratio 10.00 % 04/19/17 07:11 Glucose 96 mg/dL (75-100) 04/19/17 07:11 POC Glucose 130 (70-105) H 04/05/17 16:55 Osmolality 308 Mosm/kg 04/06/17 20:24 Lactic Acid 2.00 mmol/L (0.7-2.0) 04/07/17 08:03 Uric Acid 9.2 mg/dL (3.5-7.6) H 04/07/17 08:02 Calcium 9.2 mg/dL (8.4-10.2) 04/19/17 07:11 Ionized Calcium 4.5 mg/dL (4.8-5.6) L 04/07/17 14:49 Total Bilirubin 1.20 mg/dL (0.1-1.2) 04/06/17 11:02 AST 15 units/L (5-40) 04/19/17 14:57 ALT 48 units/L (7-56) 04/06/17 11:02 Alkaline Phosphatase 59 units/L (35-129) 04/06/17 11:02 Ammonia 76.0 umol/L (25-60) H 04/05/17 17:41 Total Creatine Kinase 145 units/L (55-170) 04/07/17 08:02 CK-MB (CK-2) 7.6 ng/mL (0.0-4.0) H 04/05/17 16:36 CK-MB (CK-2) Rel Index 0.6 (0-4) 04/05/17 16:36 Troponin T < 0.010 ng/mL (0.00-0.029) 04/08/17 01:43 C-Reactive Protein 5.10 mg/dL (0.00-1.30) H 04/13/17 14:29 Total Protein 6.1 g/dL (6.3-8.2) L D 04/06/17 11:02 Albumin 3.6 g/dL (3.9-5) L 04/06/17 11:02 Albumin/Globulin Ratio 1.4 % 04/06/17 11:02 TSH 1.700 mlU/mL (0.270-4.200) 04/05/17 16:36 Free T4 0.82 ng/dL (0.76-1.46) 04/05/17 16:36 Urine Color Red (Yellow) 04/06/17 12:44 Urine Turbidity Cloudy (Clear) 04/06/17 12:44 Urine pH 6.0 (5.0-7.0) 04/06/17 12:44 Ur Specific [place] 1.012 (1.003-1.030) 04/06/17 12:44 Urine Protein 100 mg/dl mg/dL (Negative) 04/06/17 12:44 Urine Glucose (UA) 50 mg/dL (Negative) 04/06/17 12:44 Urine Ketones Neg mg/dL (Negative) 04/06/17 12:44 Urine Blood Lg (Negative) 04/06/17 12:44 Urine Nitrite Neg (Negative) 04/06/17 12:44 Urine Bilirubin Neg (Negative) 04/06/17 12:44 Urine Urobilinogen < 2.0 mg/dL (<2.0) 04/06/17 12:44 Ur Leukocyte Esterase Mod (Negative) 04/06/17 12:44 Urine WBC (Auto) > 182.0 /HPF (0.0-6.0) H 04/06/17 12:44 Urine RBC (Auto) > 182.0 /HPF (0.0-6.0) 04/06/17 12:44 U Epithel Cells (Auto) 1.0 /HPF (0-13.0) 04/06/17 09:00 Urine Bacteria (Auto) 2+ /HPF (Negative) 04/06/17 12:44 Urine WBC Clumps 3+ /HPF 04/06/17 12:44 Urine Mucus 1+ /HPF 04/06/17 12:44 Urine Total Volume 8500 04/19/17 14:40 Urine Creatinine 33.6 mg/dL (0.1-20.0) H 04/19/17 14:40 Height (in) 73.0 inches 04/19/17 14:40 Weight (lb) 229.4 lbs 04/19/17 14:40 Creatinine Clearance 32 04/19/17 14:40 Urine Sodium 73 mEq/L 04/06/17 12:44 Urine Total Protein 589 mg/dL (5-11.8) H 04/06/17 12:44 CSF Appearance Clear 04/13/17 Unknown CSF Color Colorless 04/13/17 Unknown CSF WBC 20 /mm3 (1-10) 04/13/17 Unknown CSF RBC 120 /mm3 (0-0) 04/13/17 Unknown CSF Comment No cells seen 04/13/17 Unknown CSF Pathologist Review C 04/13/17 Unknown CSF Glucose 54 mg/dL 04/13/17 Unknown CSF Total Protein 32 mg/dL 04/13/17 Unknown CSF VDRL Nonreactive (Nonreactive) 04/13/17 Unknown Random Vancomycin 16.3 ug/mL (0-40.0) 04/16/17 04:58 Urine Opiates Screen Presumptive negative 04/05/17 16:36 Urine Methadone Screen Presumptive negative 04/05/17 16:36 Ur Barbiturates Screen Presumptive negative 04/05/17 16:36 Ur Phencyclidine Scrn Presumptive negative 04/05/17 16:36 Ur Amphetamines Screen Presumptive positive 04/05/17 16:36 U Benzodiazepines Scrn Presumptive negative 04/05/17 16:36 Urine Cocaine Screen Presumptive positive 04/05/17 16:36 U Marijuana (THC) Screen Presumptive negative 04/05/17 16:36 Drugs of Abuse Note Disclamer 04/05/17 16:36 Plasma/Serum Alcohol < 0.01 gm% (0-0.07) 04/05/17 16:36 Immunofix Electrophor see below 04/06/17 20:24 BRE Screen Negative (Negative) 04/07/17 14:49 Proteinase 3 (PR3) Ab <1.0 AI (<1.0) 04/07/17 14:49 Myeloperoxidase Ab <1.0 AI (<1.0) 04/07/17 14:49 Complement C3 125 mg/dL (90-180) 04/10/17 11:35 Complement C4 30 mg/dL (16-47) 04/10/17 11:35 Hepatitis A IgM Ab Non-reactive (NonReactive) 04/06/17 20:24 Hep Bs Antigen Non-reactive (Negative) 04/06/17 20:24 Hep B Core IgM Ab Non-reactive (NonReactive) 04/06/17 20:24 Hepatitis C Antibody Non-reactive (NonReactive) 04/06/17 20:24 HIV 1&2 Antibody Rapid Non react (Non React) 04/10/17 13:21 HIV P24 Antigen Non react (Non React) 04/10/17 13:21 Miscellaneous Test Flexitest 1 04/15/17 11:32
[2017-04-19 22:57] LABS: EPSTEIN-BARR VIRAL CAPSID IGM <36.00 U/mL (<36.00); INTERPRETATION FOR EBVA PANEL Past
[2017-04-20 06:29] LABS: Basophils % (Auto) 1.3 % (0.0-1.8); Eosinophils % (Auto) 3.8 % (0.0-4.3); Hematocrit 21.7 % (35.5-45.6); Hemoglobin 7.4 gm/dl (11.8-15.2); Mean Corpuscular HGB Conc 34 % (32-34); Mean Corpuscular Hemoglobin 33 pg (28-32); Mean Corpuscular Volume 96 fl (84-94); Platelet Count 311 K/mm3 (140-440); Red Blood Count 2.26 M/mm3 (3.65-5.03); Red Cell Distribution Width 12.6 % (13.2-15.2); White Blood Count 7.6 K/mm3 (4.5-11.0)
[2017-04-20 06:39] LABS: INR 1.08 (0.87-1.13)
[2017-04-20 06:50] LABS: Calcium 9.3 mg/dL (8.4-10.2); Chloride 107.5 mmol/L (98-107); Potassium 4.9 mmol/L (3.6-5.0)
[2017-04-20] MEDS: NACL 0.45% 1000 ML 1,000 ML IV SCH (07:23)
[2017-04-20] MEDS: NORMODYNE PO SCH ×2 (08:00→14:06)
--- NOTE | 2017-04-20 08:35 | Progress Note ---
Assessment and Plan Assessment and plan: --Rectal bleeding/anemia Closely monitor H&H and transfuse as needed, GI evaluation for possible endoscopy, DC anticoagulants --Acute nonoliguric renal failure/secondary to ATN. sepsis , rhabdomyolysis. Nephrology following Hemodialysis per schedule 3 times a week, outpt HD scheduling per case management --Sepsis. Persistent fever, resolved Blood cultures are negative. Lumbar puncture negative Continued IV antibiotics. Echocardiogram; ejection fraction 50-55%, no evidence of endocarditis Vancomycin discontinued, continue Levaquin and doxycycline per ID --Migraine headache; on Fiorecet symptoms significantly improved --Hyperkalemia. Corrected --Rhabdomyolysis. Resolved --Substance abuse; cocaine and amphetamines, counseling done patient strongly advised to quit --Hypernatremia. Resolved. --UTI. Levaquin per ID. Urine and blood cultures are negative. --Toxic metabolic Encephalopathy. Resolved --Abdominal pain. Resolved --Accelerated hypertension. Moderate control, continue current antihypertensive some when necessary medications --Schizoaffective disorder/substance-induced psychosis. Psychiatry following. -- DVT prophylaxis; Lovenox renal dose Follow-up GI evaluation and recommendations DC planning per case management Patient is from out of town , planning to set up HD in his hometown when medically stable Plan of care discussed with the patient and the family member at the bedside Hospitalist Physical - Constitutional Vitals: Temp Pulse Resp BP Pulse Ox 98.1 F 74 20 149/91 98 04/20/17 07:41 04/20/17 07:41 04/20/17 07:41 04/20/17 07:41 04/20/17 07:41 General appearance: Present: no acute distress, well-nourished, obese Results - Labs CBC & Chem 7: 04/20/17 05:38 04/20/17 05:38 Labs: Laboratory Last Values WBC 7.6 K/mm3 (4.5-11.0) 04/20/17 05:38 RBC 2.26 M/mm3 (3.65-5.03) L 04/20/17 05:38 Hgb 7.4 gm/dl (11.8-15.2) L 04/20/17 05:38 Hct 21.7 % (35.5-45.6) L 04/20/17 05:38 MCV 96 fl (84-94) H 04/20/17 05:38 MCH 33 pg (28-32) H 04/20/17 05:38 MCHC 34 % (32-34) 04/20/17 05:38 RDW 12.6 % (13.2-15.2) L 04/20/17 05:38 Plt Count 311 K/mm3 (140-440) 04/20/17 05:38 Lymph % (Auto) 14.6 % (13.4-35.0) 04/20/17 05:38 [place] % (Auto) 7.0 % (0.0-7.3) 04/20/17 05:38 Eos % (Auto) 3.8 % (0.0-4.3) 04/20/17 05:38 Baso % (Auto) 1.3 % (0.0-1.8) 04/20/17 05:38 Lymph # 1.1 K/mm3 (1.2-5.4) L 04/20/17 05:38 [place] # 0.5 K/mm3 (0.0-0.8) 04/20/17 05:38 Eos # 0.3 K/mm3 (0.0-0.4) 04/20/17 05:38 Baso # 0.1 K/mm3 (0.0-0.1) 04/20/17 05:38 Seg Neutrophils % 73.3 % (40.0-70.0) H 04/20/17 05:38 Seg Neutrophils # 5.5 K/mm3 (1.8-7.7) 04/20/17 05:38 PT 14.6 Sec. (12.2-14.9) 04/20/17 05:38 INR 1.08 (0.87-1.13) 04/20/17 05:38 APTT 35.7 Sec. (24.2-36.6) 04/13/17 14:29 POC ABG pH 7.325 (7.35-7.45) L 04/05/17 17:59 POC ABG pCO2 34.2 (35-45) L 04/05/17 17:59 POC ABG pO2 132 (80-105) H 04/05/17 17:59 POC ABG HCO3 17.8 04/05/17 17:59 POC ABG Total CO2 19 04/05/17 17:59 POC ABG O2 Sat 99 04/05/17 17:59 POC ABG Base Excess -8 04/05/17 17:59 VBG pH 7.186 (7.320-7.420) L* 04/05/17 16:36 FiO2 28 % 04/05/17 17:59 Sodium 145 mmol/L (137-145) 04/20/17 05:38 Potassium 4.9 mmol/L (3.6-5.0) 04/20/17 05:38 Chloride 107.5 mmol/L (98-107) H 04/20/17 05:38 Carbon Dioxide 23 mmol/L (22-30) 04/20/17 05:38 Anion Gap 19 mmol/L 04/20/17 05:38 BUN 38 mg/dL (9-20) H 04/20/17 05:38 Creatinine 3.8 mg/dL (0.8-1.5) H 04/20/17 05:38 Estimated GFR 21 ml/min 04/20/17 05:38 BUN/Creatinine Ratio 10 % 04/20/17 05:38 Glucose 113 mg/dL (75-100) H 04/20/17 05:38 POC Glucose 130 (70-105) H 04/05/17 16:55 Osmolality 308 Mosm/kg 04/06/17 20:24 Lactic Acid 2.00 mmol/L (0.7-2.0) 04/07/17 08:03 Uric Acid 9.2 mg/dL (3.5-7.6) H 04/07/17 08:02 Calcium 9.3 mg/dL (8.4-10.2) 04/20/17 05:38 Ionized Calcium 4.5 mg/dL (4.8-5.6) L 04/07/17 14:49 Total Bilirubin 1.20 mg/dL (0.1-1.2) 04/06/17 11:02 AST 15 units/L (5-40) 04/19/17 14:57 ALT 48 units/L (7-56) 04/06/17 11:02 Alkaline Phosphatase 59 units/L (35-129) 04/06/17 11:02 Ammonia 76.0 umol/L (25-60) H 04/05/17 17:41 Total Creatine Kinase 145 units/L (55-170) 04/07/17 08:02 CK-MB (CK-2) 7.6 ng/mL (0.0-4.0) H 04/05/17 16:36 CK-MB (CK-2) Rel Index 0.6 (0-4) 04/05/17 16:36 Troponin T < 0.010 ng/mL (0.00-0.029) 04/08/17 01:43 C-Reactive Protein 5.10 mg/dL (0.00-1.30) H 04/13/17 14:29 Total Protein 6.1 g/dL (6.3-8.2) L D 04/06/17 11:02 Albumin 3.6 g/dL (3.9-5) L 04/06/17 11:02 Albumin/Globulin Ratio 1.4 % 04/06/17 11:02 TSH 1.700 mlU/mL (0.270-4.200) 04/05/17 16:36 Free T4 0.82 ng/dL (0.76-1.46) 04/05/17 16:36 Urine Color Red (Yellow) 04/06/17 12:44 Urine Turbidity Cloudy (Clear) 04/06/17 12:44 Urine pH 6.0 (5.0-7.0) 04/06/17 12:44 Ur Specific [place] 1.012 (1.003-1.030) 04/06/17 12:44 Urine Protein 100 mg/dl mg/dL (Negative) 04/06/17 12:44 Urine Glucose (UA) 50 mg/dL (Negative) 04/06/17 12:44 Urine Ketones Neg mg/dL (Negative) 04/06/17 12:44 Urine Blood Lg (Negative) 04/06/17 12:44 Urine Nitrite Neg (Negative) 04/06/17 12:44 Urine Bilirubin Neg (Negative) 04/06/17 12:44 Urine Urobilinogen < 2.0 mg/dL (<2.0) 04/06/17 12:44 Ur Leukocyte Esterase Mod (Negative) 04/06/17 12:44 Urine WBC (Auto) > 182.0 /HPF (0.0-6.0) H 04/06/17 12:44 Urine RBC (Auto) > 182.0 /HPF (0.0-6.0) 04/06/17 12:44 U Epithel Cells (Auto) 1.0 /HPF (0-13.0) 04/06/17 09:00 Urine Bacteria (Auto) 2+ /HPF (Negative) 04/06/17 12:44 Urine WBC Clumps 3+ /HPF 04/06/17 12:44 Urine Mucus 1+ /HPF 04/06/17 12:44 Urine Total Volume 8500 04/19/17 14:40 Urine Creatinine 33.6 mg/dL (0.1-20.0) H 04/19/17 14:40 Height (in) 73.0 inches 04/19/17 14:40 Weight (lb) 229.4 lbs 04/19/17 14:40 Creatinine Clearance 32 04/19/17 14:40 Urine Sodium 73 mEq/L 04/06/17 12:44 Urine Total Protein 589 mg/dL (5-11.8) H 04/06/17 12:44 CSF Appearance Clear 04/13/17 Unknown CSF Color Colorless 04/13/17 Unknown CSF WBC 20 /mm3 (1-10) 04/13/17 Unknown CSF RBC 120 /mm3 (0-0) 04/13/17 Unknown CSF Comment No cells seen 04/13/17 Unknown CSF Pathologist Review C 04/13/17 Unknown CSF Glucose 54 mg/dL 04/13/17 Unknown CSF Total Protein 32 mg/dL 04/13/17 Unknown CSF VDRL Nonreactive (Nonreactive) 04/13/17 Unknown Random Vancomycin 16.3 ug/mL (0-40.0) 04/16/17 04:58 Urine Opiates Screen Presumptive negative 04/05/17 16:36 Urine Methadone Screen Presumptive negative 04/05/17 16:36 Ur Barbiturates Screen Presumptive negative 04/05/17 16:36 Ur Phencyclidine Scrn Presumptive negative 04/05/17 16:36 Ur Amphetamines Screen Presumptive positive 04/05/17 16:36 U Benzodiazepines Scrn Presumptive negative 04/05/17 16:36 Urine Cocaine Screen Presumptive positive 04/05/17 16:36 U Marijuana (THC) Screen Presumptive negative 04/05/17 16:36 Drugs of Abuse Note Disclamer 04/05/17 16:36 Plasma/Serum Alcohol < 0.01 gm% (0-0.07) 04/05/17 16:36 Immunofix Electrophor see below 04/06/17 20:24 BRE Screen Negative (Negative) 04/07/17 14:49 Proteinase 3 (PR3) Ab <1.0 AI (<1.0) 04/07/17 14:49 Myeloperoxidase Ab <1.0 AI (<1.0) 04/07/17 14:49 Complement C3 125 mg/dL (90-180) 04/10/17 11:35 Complement C4 30 mg/dL (16-47) 04/10/17 11:35 EBV Capsid Ag IgG, IgM <36.00 U/mL (<36.00) 04/16/17 11:32 EBV Capsid Ag IgG Titer 78.60 U/mL (<18.00) H 04/16/17 11:32 EBV Nuclear Ag IgG Indx 447.00 U/mL (<18.00) H 04/16/17 11:32 EBV Interpretation Past 04/16/17 11:32 Hepatitis A IgM Ab Non-reactive (NonReactive) 04/06/17 20:24 Hep Bs Antigen Non-reactive (Negative) 04/06/17 20:24 Hep B Core IgM Ab Non-reactive (NonReactive) 04/06/17 20:24 Hepatitis C Antibody Non-reactive (NonReactive) 04/06/17 20:24 HIV 1&2 Antibody Rapid Non react (Non React) 04/10/17 13:21 HIV P24 Antigen Non react (Non React) 04/10/17 13:21 Miscellaneous Test Flexitest 1 04/15/17 11:32
[2017-04-20] MEDS: NORVASC PO SCH (10:00)
[2017-04-20] MEDS: VIBRAMYCIN PO SCH (10:00)
[2017-04-20] MEDS: PROTONIX PO SCH (10:00)
--- NOTE | 2017-04-20 10:04 | Progress Note ---
Assessment and Plan Assessment: * Nonoliguric acute kidney injury attributed to ATN vs other --Work up negative to date - ANCA, C3/C4, HIV, Hepatitis, SPEP * Polysubstance abuse * Hypertension * Rhabdomyolysis, mild - resolved * Proteinuria * Schizoaffective DO * Chronic NSAID use * Persistent low grade fever * gi bleed Plan: * Hemodialysis on hold today * cr is better, follow up 24hrcrcl 32ml/min * if continues to improve will remove vasc cath * Continue antiHTN medications * Avoid potential nephrotoxins * Dose medications for renal function * Strict I/O * dc vasc cath today * can dc home from renal standpoint with outpt follow up with a general practitioner in 2 weeks Subjective Date of service: 04/20/17 Principal diagnosis: Sepsis Syndrome; Chest Pains; Bilateral Rib Fractures Interval history: resting well in bed Objective - Exam Narrative Exam: General appearance: well-developed, well-nourished EENT: ATNC Respiratory: Present: Clear to Ascultation Cardiology: regular, S1S2 Gastrointestinal: normal, no tenderness, no distended Integumentary: no rash Musculoskeletal: other (no edema) Psychiatric: cooperative - Vital Signs Vital signs: Vital Signs - 12hr 04/19/17 04/20/17 04/20/17 23:45 05:04 07:41 Temperature 98.8 F 99.0 F 98.1 F Pulse Rate 74 72 74 Respiratory 20 20 20 Rate Blood Pressure 155/103 162/99 149/91 O2 Sat by Pulse 99 98 98 Oximetry - Lab 04/20/17 05:38 04/20/17 05:38 Most recent lab results Calcium 9.3 mg/dL (8.4-10.2) 04/20/17 05:38 Urine Creatinine 33.6 mg/dL (0.1-20.0) H 04/19/17 14:40 Urine Sodium 73 mEq/L 04/06/17 12:44 Urine Total Protein 589 mg/dL (5-11.8) H 04/06/17 12:44
--- NOTE | 2017-04-20 10:19 | Discharge Summary ---
Providers - Providers Date of Admission: 04/05/17 18:22 Attending physician: YANG MADSEN MD 04/06/17 13:29 psychiatry consult [Consult to Mental Health] [CONS] Routine Reason For Exam: ? bipolar Place consult to:: Lisbet Notified:: Laurie Phone number called:: [phone] Was contact made?: Yes If yes, spoke with:: Lisbet Time called:: 15:03 04/06/17 13:40 Consult to Physician [CONS] Routine Consulting Provider: SCARLETT TAVERA Reason For Exam: arf Place consult to:: Preeti Notified:: Alyssa Phone number called:: [phone] Was contact made?: Yes If yes, spoke with:: Alyssa Time called:: 15:04 04/07/17 10:02 Consult to Mental Health [CONS] Routine Reason For Exam: bipolar Place consult to:: pls Notified:: Phone number called:: [phone] Was contact made?: Yes Time called:: 11:31 04/08/17 10:41 Consult to Mental Health [CONS] Routine Reason For Exam: bipolar Place consult to:: pls Notified:: Phone number called:: [phone] Was contact made?: Yes If yes, spoke with:: junior Time called:: 11:04 04/08/17 12:05 Consult to Physician [CONS] Urgent Consulting Provider: LUPE JANE Reason For Exam: fili stone Notified:: yes Phone number called:: texted him 04/12/17 11:43 Consult to Physician [CONS] Routine Consulting Provider: JACINTO FLORIAN Reason For Exam: fever, uti, sepsis Place consult to:: dr. jackson Notified:: Phone number called:: [phone] Was contact made?: Yes If yes, spoke with:: dr. jackson Time called:: 12:43 04/16/17 10:27 Physical Therapy Evaluation and Treat [CONS] Routine Comment: Reason For Exam: weakness 04/19/17 08:53 Consult to Physician [CONS] Routine Consulting Provider: SANTIAGO TOVAR Reason For Exam: rectal bleeding/anemia Place consult to:: DR. Lakesha TOVAR Notified:: OFFICE Phone number called:: [phone] Was contact made?: Yes If yes, spoke with:: JOSE Time called:: 09:26 Comment:: MARLI NOTIFIED Primary care physician: [facility] Hospitalization Reason for admission: altered mental status Condition: Stable Hospital course: 42 YO Male with Bipolar, Obesity presents to ED for evaluation. Pt is confused, lethargic, and unable to provide history. History taken from ED staff, and police officers. Pt found wandering and confused as per EMS,and Police. Pt found disheveled, wandering about stating "someone was trying to hurt me". On PD arrival patient became very combative and trying to run. Patient brought to the ER in her full restraints , combative and unable to answer questions. Upon arrival to the ER patient found to be febrile, in respiratory failure, and with Sepsis. Pt treated IAW sepsis protocol, and admitted to ICU. Patient was subsequently transferred out of the ICU and managed on the medical floor psychiatry was consulted was started on treatment with Klonopin 1 mg by mouth daily at bedtime and Zyprexa 5 mg by mouth daily at bedtime on discharge. Metabolic side effects of Zyprexa was discussed in detail with the patient and family at the bedside and recommended an outpatient psych services follow-up in his hometown of [place]. The patient also reported taken Goody powder for 2 weeks straight. I recommended against this going forward. He verbalized understanding The patient apply a transfusion panendoscopy was done with no findings of the explanation for the anemia. I recommended an outpatient follow- up with GI for possible pill endoscopy. Patient was also treated with sepsis as noted above blood cultures remain negative lumbar puncture was negative. EF showed an ejection fraction of 50-55% with no evidence of endocarditis. The patient was treated with vancomycin and subsequently Levaquin and doxycycline will be discharged with doxycycline. Further management and plan assessment and below. Patient was requested for pain medication on discharge he states he has history of severe fusion on his back and he is followed by pain management. I recommended that he follows up with his pain management physician. I discussed with the patient about the biopsies for H. pylori which is to follow- up with and also the need to follow up with GI outpatient. Discharge diagnosis --Rectal bleeding --Acute blood loss anemia --Acute nonoliguric renal failure/secondary to ATN. Present on admission --Sepsis secondary to acute cystitis. --Schizoaffective DO/PTSD. 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 --Substance Use DO (cocaine/amphetamines). --Migraine headache; on Fiorecet symptoms significantly improved --Hyperkalemia. Corrected --Rhabdomyolysis. Resolved --Hypernatremia. Resolved. --Acute cystitis --Toxic metabolic Encephalopathy. Resolved --Accelerated hypertension. Blood pressure medications initiated prior to discharge --Moderate size hiatus hernia. --Minimal prepyloric gastritis. Disposition: DC-01 TO HOME OR SELFCARE Time spent for discharge: 35 mins Core Measure Documentation - Palliative Care Palliative Care/ Comfort Measures: Not Applicable - Core Measures Any of the following diagnoses?: none - VTE Discharge Requirements Deep Vein Thrombosis/Pulmonary Embolism Present on Admission: No Exam - Physical Exam Narrative exam: VITAL SIGNS: Reviewed. GENERAL: The patient appeared well nourished and normally developed. Vital signs as documented. HEAD: No signs of head trauma. EYES: Pupils are equal. Extraocular motions intact. EARS: Hearing grossly intact. MOUTH: Oropharynx is normal. Except for missing dentition NECK: No adenopathy, no JVD. CHEST: Chest with clear breath sounds bilaterally. No wheezes, rales, or rhonchi. CARDIAC: Regular rate and rhythm. S1 and S2, without murmurs, gallops, or rubs. VASCULAR: No Edema. Peripheral pulses normal and equal in all extremities. ABDOMEN: Soft, without detectable tenderness. No sign of distention. No rebound or guarding, and no masses palpated. Bowel Sounds normal. MUSCULOSKELETAL: Good range of motion of all major joints. Extremities without clubbing, cyanosis or edema. NEUROLOGIC EXAM: Alert and oriented x 3. No focal sensory or strength deficits. Speech normal. Follows commands. PSYCHIATRIC: Mood normal. SKIN: No rash or lesions. - Constitutional Vitals: Temp Pulse Resp BP Pulse Ox 98.1 F 74 20 149/91 98 04/20/17 07:41 04/20/17 07:41 04/20/17 07:41 04/20/17 07:41 04/20/17 07:41 Plan Activity: advance as tolerated, fall precautions Diet: renal Special Instructions: record daily BP diary Additional Instructions: Follow With [facility] in 1 week outpatient. This can be arranged by PCP. have repeat H/H AND RENAL FUNCTION TEST IN 3-5 DAYS. Follow-up with outpatient substance abuse management and psychiatrist Follow up with: PRIMARY CARE, [Primary Care Provider] - 7 Days Prescriptions: clonazePAM [KlonoPIN] 1 mg PO QHS #14 tablet amLODIPine [Norvasc] 10 mg PO QDAY #30 tablet Butalb/Acetamin/Caff 50-325-40 [Fioricet] 1 tab PO Q4H PRN #14 tablet PRN Reason: Headache Doxycycline [Vibramycin CAP] 100 mg PO BID #10 capsule Labetalol [Normodyne TAB] 400 mg PO TID #30 tablet OLANzapine [ZyPREXA] 5 mg PO HS #30 tablet oxyCODONE /ACETAMINOPHEN [Percocet 5/325 mg] 1 tab PO Q6H PRN #10 tablet PRN Reason: Pain, Moderate (4-6) Pantoprazole [Protonix TAB] 40 mg PO DAILY #30 tablet
[2017-04-20] MEDS: APRESOLINE IV PRN ×2 (11:46→17:16)
[2017-04-20] MEDS ORDERED: TRIPLE ANTIBIOTIC TP ONE (11:49)
[2017-04-20] MEDS: DILAUDID IV PRN ×2 (11:56→18:25)
[2017-04-20] MEDS: PROVENTIL IH PRN (13:50)
[2017-04-20] MEDS ORDERED: DIPRIVAN 10 MG/ML IV ONE ×3 (14:11→15:36)
--- NOTE | 2017-04-20 14:28 | Progress Note ---
Subjective - Reason for Consult Consult date: 04/20/17 Reason for consult: Psychiatry Follow-up - Chief Complaint Chief complaint: "I maybe going home today" 42 years old male brought by EMS and POLICE. Per EMS patient call PD stating someone was trying to hurt him. Today patient is calm and cooperative during the assessment. He stated that he would like to continue to take the Klonopin for anxiety. He stated that he experienced AH's last night. He stated that the voices were not giving him any commands. He stated that he look forward to being discharged and following up with his psychiatrist in [place]. He denies SI/HI's , VH's, and depression. He rate his anxiety 3/10, with 10 being the worse. Mental Status Exam - Vital signs Last Vital Signs Temp 98.9 F 04/20/17 11:27 Pulse 68 04/20/17 12:00 Resp 20 04/20/17 12:00 BP 173/106 04/20/17 11:46 Pulse Ox 98 04/20/17 11:27 - Exam Narrative exam: MSE: Appearance: calm, cooperative Behavior: regular eye contact Speech: regular rate and tone Mood: "okay" Affect: congruent to mood Thought Process: linear Thought Content: denies SI/HI's and VH's, intermittent AH's Motor Activity: lying in bed Cognition: A/O x 3 Insight: fair Judgment: fair Assessment and Plan Impression: Historical Dx: Schizoaffective DO/PTSD. 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 Possibly Substance Use DO (cocaine/amphetamines). Today patient is calm and cooperative during assessment. Patient report anxiety at night. Patient positive for cocaine and amphetamines. CR 3.8 trending down. Hx of self injury. Recommendation/Plan: Continue Klonopin 1 mg PO HS and start Zyprexa 5 mg PO HS. Discussed possible metabolic side effects of Zyprexa with patient. Patient stated that he will follow-up with [facility] for outpatient psy services in his hometown in [place].
[2017-04-20] MEDS ORDERED: NACL 0.9% 1000 ML 1,000 ML IV SCH (15:00)
--- NOTE | 2017-04-20 15:09 | Anesthesia Day of Surgery ---
Anesthesia Day of Surgery - Day of Surgery Patient Examined: Yes Patient H&P Reviewed: Yes Patient is NPO: Yes
--- NOTE | 2017-04-20 15:09 | Anesthesia Consultation ---
Anesthesia Consult and Med Hx Date of service: 04/20/17 - Airway Anesthetic Teeth Evaluation: Poor (missing front tooth) ROM Head & Neck: Adequate Mental/Hyoid Distance: Adequate Mallampati Class: Class II Intubation Access Assessment: Probably Good - Pulmonary Exam CTA: Yes - Cardiac Exam Cardiac Exam: RRR - Pre-Operative Health Status ASA Pre-Surgery Classification: ASA3 Proposed Anesthetic Plan: MAC - Pulmonary Hx Asthma: Yes (severe) COPD: No Hx Pneumonia: No Hx Sleep Apnea: No - Cardiovascular System Hx Hypertension: Yes - Central Nervous System Hx Back Pain: Yes (thoracic spine fusion) Hx Psychiatric Problems: Yes (schizophrenia, bipolar, altered mental status) - Gastrointestinal Hx Gastroesophageal Reflux Disease: No - Endocrine Hx Renal Disease: Yes (acute renal failure) Hx End Stage Renal Disease: No Hx Insulin Dependent Diabetes: No - Hematic Hx Anemia: Yes Hx Sickle Cell Disease: No - Other Systems Hx Alcohol Use: Yes Hx Substance Use: Yes (cocaine and other recreational drugs) Hx Cancer: No - Additional Comments Anesthesia Medical History Comments: Present to [facility] with altered mental status which has improved. Patient is alert and oriented 04/20/17
[2017-04-20] MEDS ORDERED: WATER FOR IRRIG STERILE IR ONE (15:15)
[2017-04-20] MEDS ORDERED: NORMODYNE IV ONE (15:16)
[2017-04-20] MEDS ORDERED: INFANTS' GAS RELIEF PO ONE (15:38)
--- NOTE | 2017-04-20 15:50 | Operative Report ---
Operative Report Operative Report: Date of procedure: 04/20/2017 Procedure: Esophagogastroduodenoscopy with biopsies for H. pylori Preprocedure diagnosis:, Abdominal pain nausea and recent weight loss Post procedure diagnosis: Minimal prepyloric gastritis. Moderate size hiatus hernia. Endoscopist: Dr. Moura Anesthesia: Monitored anesthesia care per anesthesia department Medications: Propofol per anesthesia Estimated blood loss: [0] After careful discussion of the nature and purpose of the procedure as well as details the technique risks benefits and alternatives consent was obtained. The patient was placed in the left lateral decubitus position and medicated per anesthesia. The tip of the [employer] EQ 570 video scope was passed per orum under direct vision into the esophagus and advanced into the stomach and descending duodenum. The descending duodenum the duodenal bulb and pylorus were symmetrical and normal. The scope was withdrawn into the stomach and the stomach then gently insufflated with air. The antrum revealed patchy erythema. Biopsies were taken to assess for possible H. pylori infection. No ulcers are present. The stomach was further insufflated and the scope was then retroflexed and partially withdrawn. The cardia, fundus, and body of the stomach were within normal limits and easily distensible.The scope was then withdrawn in the forward position. The esophagogastric junction was at [36 cm area there was a moderate size hiatus hernia approximately 3 cm in length.]. The esophageal body was otherwise normal throughout. The procedure was was well tolerated and the patient was observed in recovery. Impressions: Moderate size hiatus hernia. Minimal prepyloric gastritis. No findings to explain anemia. Plan: Acid suppression therapy. Await results of biopsies for H. pylori. Electronically signed: Edward Moura MD
--- NOTE | 2017-04-20 15:54 | Operative Report ---
Operative Report Operative Report: Date of procedure: 04/20/2017 Preprocedure diagnosis: Family history of colon cancer. Anemia. Post procedure diagnosis: Normal study Procedure: Colonoscopy to the cecum and terminal ileum Endoscopist: Dr. Moura Anesthesia: Monitored anesthesia care per anesthesia department Estimated blood loss: 0 Medications: Monitored anesthesia care. See separate report by anesthesia for details. After careful discussion of the nature and purpose of the procedure as well as details of the technique risks benefits and alternatives the patient gave consent. Please see recent history and physical from the office. The patient was placed in the left lateral decubitus position and medicated per anesthesia. A rectal exam was performed sphincter tone was normal there were no masses palpable. The [employer] 570 scope was passed transanally and advanced under continuous direct vision without difficulty to the cecum. The colon was well prepared. The cecum was normal. The scope was advanced to the ileocecal valve and the distal 10 m of ileum inspected. The ileum appeared normal. The ascending colon was normal and on forward and retroflexed views. The transverse colon, descending colon, and sigmoid colon were normal. The rectum was normal on forward and retroflexed views. The procedure was well-tolerated overall and the patient was observed in recovery. Conclusions: Normal colonoscopy to the cecum. Normal terminal ileum. Plan: Repeat colonoscopy in 5 years based on family history. He is stable to go home today GI choi. Signed electronically: Edward Moura M.D.
--- NOTE | 2017-04-20 16:10 | Post Anesthesia Evaluation ---
- Post Anesthesia Evaluation Patient Participated: Yes Airway Patent: Yes Stable Respiratory Function: Yes Nausea/Vomiting: No Temp > 96.8F: Yes Pain Manageable: Yes Adequeate Hydration: Yes Anesthesia Complications: No Block Receding Appropriately: Not Applicable Patient on Ventilator: No
[2017-04-20] MEDS: FIORICET PO PRN (17:17)
[2017-04-20 20:06] VITALS: BP 122/77
[2017-04-20] MEDS: ATIVAN PO PRN (20:19)
== END 2017-04-20 21:19 | disposition home or self-care (01) | DRG 871 ==
LOC: EDBD → ED 16:25 → CC1 18:22 → 3A 04-06 15:20
PROVIDERS: ADMIT Internal Medicine; ATTEND Internal Medicine
PROC: 4A033R1 Measurement of Arterial Saturation, Peripheral, Percutaneous Approach (ICD-10-PCS; principal; 2017-04-05)
PROC: 5A1D70Z Performance of Urinary Filtration, Intermittent, Less than 6 Hours Per Day (ICD-10-PCS; 2017-04-08)
PROC: 02H633Z Insertion of Infusion Device into Right Atrium, Percutaneous Approach (ICD-10-PCS; 2017-04-08)
PROC: 009U3ZX Drainage of Spinal Canal, Percutaneous Approach, Diagnostic (ICD-10-PCS; 2017-04-14)
PROC: B01B1ZZ Fluoroscopy of Spinal Cord using Low Osmolar Contrast (ICD-10-PCS; 2017-04-14)
PROC: 0DB68ZX Excision of Stomach, Via Natural or Artificial Opening Endoscopic, Diagnostic (ICD-10-PCS; 2017-04-20)
PROC: 0DJD8ZZ Inspection of Lower Intestinal Tract, Via Natural or Artificial Opening Endoscopic (ICD-10-PCS; 2017-04-20)
DX: A41.9 Sepsis, unspecified organism (principal); N17.0 Acute kidney failure with tubular necrosis; J96.00 Acute respiratory failure, unspecified whether with hypoxia or hypercapnia; G92 Toxic encephalopathy; E87.0 Hyperosmolality and hypernatremia; M62.82 Rhabdomyolysis; D62 Acute posthemorrhagic anemia; N30.00 Acute cystitis without hematuria; K92.2 Gastrointestinal hemorrhage, unspecified; F31.9 Bipolar disorder, unspecified; I10 Essential (primary) hypertension; F25.9 Schizoaffective disorder, unspecified; G43.909 Migraine, unspecified, not intractable, without status migrainosus; E87.5 Hyperkalemia; K44.9 Diaphragmatic hernia without obstruction or gangrene; K29.60 Other gastritis without bleeding
CPT/HCPCS: 36415; 36556; 62270; 70450; 71010; 71020; 71111; 72100; 74176; 76770; 77001; 77003; 80048; 80053; 80074; 80202; 80307; 80320; 81001; 82140; 82270; 82330; 82550; 82553; 82565; 82570; 82575; 82803; 82805; 82947; 82962; 83930; 84156; 84160; 84300; 84439; 84443; 84450; 84484; 84550; 85014; 85018; 85025; 85610; 85730; 86021; 86038; 86140; 86160; 86334; 86403; 86592; 86665; 87040; 87086; 87116; 87497; 87806; 88305; 88342; 89051; 93005; 93010; 93306; 94640; 94760; 96361; 96365; 96375; A6250; C1752; C9113; G0480; J0360; J0690; J0696; J1170; J1200; J1644; J1650; J1885; J1956; J2060; J2250; J2270; J2543; J2704; J3010; J3370; J7030; J7040; J7050